=== PATIENT | female | born 1945 | race Caucasian/White ===

== ENCOUNTER 2024-11-27 20:04 | Emergency (ER) | payer MEDICARE, OTHER, SELFPAY ==
[2024-11-27 20:04] VITALS: BP 151/82; PULSE 74; RESP 15; TEMP 36.9; O2SAT 98; BMI 27.3
--- NOTE | 2024-11-27 20:15 | PC.NURSE ---
Unable to do the suicide assessment due to pt's altered mental status.
--- NOTE | 2024-11-27 20:30 | ED_ITS ---
Documented by User: KADIE Arcos 11/28/24 01:04 HPI - Skin/Abscess/Foreign Bdy 2 General: Chief complaint: Skin/Abscess/Foreign Body Stated complaint: BREAST INFECTION Time Seen by Provider: 11/27/24 20:20 History of Present Illness: 79-year-old female comes in today with a draining breast infection. Family seeing a draining wound from her left breast today. They had not noticed any fever or chills. Patient has had some declining cognition for the last 2 to 3 years. Family reports that patient takes no routine medications. Patient has not left the home since COVID in 2019. Patient lives with family members at home. Family stated that they have noticed increasing decline since the of her father 2 years ago. Patient has a history of breast cancer approximately 30 years ago. Patient had breast implants at that time. Otherwise patient's had an appendix removal. Related Data Allergies Allergy/AdvReac Type Severity Reaction Status Date / Time ibuprofen Allergy ADR-Vomitin Verified 11/27/24 20:14 g morphine Allergy ALGY-Difficulty Verified 11/27/24 20:14 Breathing Sulfa (Sulfonamide Allergy Unknown Verified 11/27/24 20:14 Antibiotics) tramadol Allergy Unconscious Verified 11/27/24 20:14 Review of Systems 2 General: Reports: 10 or more systems reviewed and unremarkable except in HPI and below Physical Exam 2 Const: COMMON NORMALS: alert HENMT: COMMON NORMALS: normocephalic HEAD & SCALP: normocephalic Neck/C-Spine: COMMON NORMALS: full ROM Chest: OTHER: ulcerated lesion approximately 4 cm circular to the medial left breast with surrounding erythema and drainage from the site. Resp: COMMON NORMALS: normal respiratory effort Cardio: COMMON NORMALS: regular rate RATE: regular rate Back/Pelvis: COMMON NORMALS: thoracic and lumbar spine normal to inspection Extremity: COMMON NORMALS: full ROM Neuro: SENSORIUM/ORIENTATION: Yes alert Skin: NARRATIVE SKIN EXAM: Erythema with centralized crusted lesion to the left inner breast. Area is hard. Course 2 Vital Signs: Vital signs: Vital Signs Temperature 98.4 F 11/27/24 20:04 Pulse Rate 70 11/27/24 22:04 Respiratory Rate 22 H 11/27/24 22:04 Blood Pressure 180/86 11/27/24 22:04 Pulse Oximetry 97 11/27/24 22:04 Oxygen Delivery Me thod Nasal Cannula 11/27/24 22:04 Oxygen Flow Rate 3 11/27/24 22:04 MDM - Skin/Abscess/Foreign Bdy Medicial Decision Making Patient presents with a draining lesion from the left inner breast. Patient is only oriented to self. Patient is ambulatory. Limited examination notes a area of redness with surrounding ecchymosis and centralized ulcerated lesion with drainage of serous fluid. Differential diagnosis includes carcinoma, abscess, rupture breast implant, recluse spider bite. 2034, discussed patient with Dr. Lopez, attending ER physician. Expressed my concerns of patient's confusion and aggression and need for further imaging. His recommendations were to start with some Ativan IM and then we may need to use. Ketamine for sedation for a CT scan. Relayed this to nursing staff who reports understanding. 2226, CT noted a left breast implant with intracapsular and extracapsular ruptures. No other significant abnormalities were noted on the chest or head CT. CBC noted a white count of 9000, sed rate was 48, sodium was 137, potassium 4.0, CRP was 64, urinalysis was unremarkable. Discussed with patient's family recommendations for referral to a plastic surgeon for removal of the breast implant and other surgical intervention. Family reported understanding agreed with plan. 2354, spoke with surgeon on-call, Dr. Bey, at [facility] in [place]. He recommended patient being treated with antibiotics and following up outpatient with Dr. Daly or Dr. Tirado for further investigation and treatment of the ruptured breast implant and/or ruling out carcinoma. 0010, family felt uncomfortable with patient going home as he did not know how they would care for her or if they would be able to get her into follow-up. I discussed this with the hospitalist, Dr. Cosby, he did not feel that we were a good fit for this patient since we had no surgeon on-call and recommended looking at other facilities for placement. 0025, talked with the call center at [facility] they would review the record and films and contact us back about excepting for admission. 0100, awaiting callback from [facility]. Dr. Lopez, attending ER physician, agreed to receive my patient at the end of my shift. Lab Data 11/27/24 21:16 11/27/24 21:16 Radiology Impressions Chest/Abdomen/Pelvis CT 11/27/24 20:35 IMPRESSION: 1. Left breast implant with intracapsular and extracapsular ruptures. 2. Atherosclerosis including coronary artery calcification. 3. Suspected chronic T10 and T11 compression fractures IMPRESSION: 1. No acute abnormality. 2. Extensive atherosclerosis. 3. Renal cysts. COMMENTS: Consistent with the [employer]'s Incidental Findings Committee white paper (J Am Werner Radiol 2018): Any incidental renal lesion less than 1 cm or classified as too small to characterize, or any incidental cystic renal lesion characterized as simple-appearing, is likely benign. No follow-up imaging is recommended for these lesions per consensus recommendations based on imaging criteria. Head CT 11/27/24 21:37 IMPRESSION: 1. No acute intracranial abnormality. 2. Moderate age-related changes. Laboratory Results WBC 9.28 10^3/uL (3.29-11.43) 11/27/24 21:16 RBC 4.08 10^6/uL (3.85-5.65) 11/27/24 21:16 Hgb 12.10 g/dL (11.27-16.99) 11/27/24 21:16 Hct 37.5 % (36-47) 11/27/24 21:16 MCV 91.9 fl (85-98) 11/27/24 21:16 MCH 29.7 pg (27-33) 11/27/24 21:16 MCHC 32.3 g/dL (30-55) 11/27/24 21:16 RDW 11.8 % (12.1-15.1) L 11/27/24 21:16 Plt Count 214 10^3/cmm (157-399) 11/27/24 21:16 MPV 11.9 fL (7.4-10.4) H 11/27/24 21:16 Neut % (Auto) 76.2 % 11/27/24 21:16 Lymph % (Auto) 14.8 % 11/27/24 21:16 Telfair % (Auto) 6.4 % 11/27/24 21:16 Eos % (Auto) 1.9 % 11/27/24 21:16 Baso % (Auto) 0.5 % 11/27/24 21:16 Neut # (Auto) 7.07 10^3/uL (1.8-7.7) 11/27/24 21:16 Lymph # (Auto) 1.4 10^3/uL (0.8-4.8) 11/27/24 21:16 [place]elf[place] # (Auto) 0.6 10^3/uL (0.2-0.9) 11/27/24 21:16 Eos # (Auto) 0.2 10^3/uL (0.0-0.8) 11/27/24 21:16 Baso # (Auto) 0.1 10^3/uL (0.0-0.1) 11/27/24 21:16 Nucleated RBC % (auto) 0 % 11/27/24 21:16 Nucleated RBCs # 0.0 /100WBC 11/27/24 21:16 ESR 48 mm/hr (0-15) H 11/27/24 21:16 Sodium 137 mmol/L (136-145) 11/27/24 21:16 Potassium 4.0 mmol/L (3.5-5.1) 11/27/24 21:16 Chloride 100 mmol/L (98-107) 11/27/24 21:16 Carbon Dioxide 25 mmol/L (22-29) 11/27/24 21:16 Anion Gap 16.0 (5-19) 11/27/24 21:16 BUN 15 mg/dL (8-23) 11/27/24 21:16 Creatinine 0.6 mg/dL (0.5-0.9) 11/27/24 21:16 GFR Calculation Not Reportable 11/27/24 21:16 Glucose 126 mg/dL (65-115) H 11/27/24 21:16 Calculated Osmolality 286 mOsm/kg (285-295) 11/27/24 21:16 Lactic Acid 1.5 mmol/L (0.5-2.2) 11/27/24 21:16 Calcium 9.0 mg/dL (8.5-10.5) 11/27/24 21:16 Total Bilirubin 0.3 mg/dL (0.15-1.2) 11/27/24 21:16 AST 32 U/L (0-32) 11/27/24 21:16 ALT 36 U/L (0-33) H 11/27/24 21:16 Alkaline Phosphatase 167 U/L (35-105) H 11/27/24 21:16 C-Reactive Protein 64.7 mg/L (0.0-4.9) H 11/27/24 21:16 Total Protein 6.6 g/dL (6.6-8.7) 11/27/24 21:16 Albumin 3.4 g/dL (3.5-5.2) L 11/27/24 21:16 Globulin 3.2 g/dL (1.3-4.6) 11/27/24 21:16 Urine Color Yellow (Yellow) 11/27/24 20:54 Urine Appearance Clear (CLEAR) 11/27/24 20:54 Urine pH 7.0 (5-7) 11/27/24 20:54 Ur Specific Yulee 1.004 (1.005-1.030) L 11/27/24 20:54 Urine Protein Negative (Negative) 11/27/24 20:54 Urine Glucose (UA) Negative (Normal) 11/27/24 20:54 Urine Ketones Negative (Negative) 11/27/24 20:54 Urine Blood 1+ (Negative) A 11/27/24 20:54 Urine Nitrate Negative (Negative) 11/27/24 20:54 Urine Bilirubin Negative (Negative) 11/27/24 20:54 Urine Urobilinogen 0.2 mg/dL (Negative) 11/27/24 20:54 Ur Leukocyte Esterase Negative (Negative) 11/27/24 20:54 Urine RBC 0-2 /hpf (0-2) 11/27/24 20:54 Urine WBC 0-5 /hpf (0-5) 11/27/24 20:54 Ur Squamous Epith Cells 0-5 /hpf (0-5) 11/27/24 20:54 Amorphous Sediment Not Reportable 11/27/24 20:54 Urine Bacteria None seen /hpf (NONE) 11/27/24 20:54 Hyaline Casts 0-4 /lpf H 11/27/24 20:54 Discharge Plan Discharge Patient Disposition: Xfer Short-Term Hosp Clinical Impression: Abscess of breast, left, Rupture of implant of left breast, Alzheimer dementia Condition: Stable Discharge Diet: Usual diet Discharge Activity: Increase activity as tolerated Patient Instructions: Wound Care (General) Print Language: Mongolian Coding Level of Care Code ED Loan Broker for Chg Fwd Documented by User: Mohinder Lopez MD 11/28/24 01:58 HPI - Skin/Abscess/Foreign Bdy 2 General: Chief complaint: Skin/Abscess/Foreign Body Stated complaint: BREAST INFECTION Time Seen by Provider: 11/27/24 20:20 Related Data Allergies Allergy/AdvReac Type Severity Reaction Status Date / Time ibuprofen Allergy ADR-Vomitin Verified 11/27/24 20:14 g morphine Allergy ALGY-Difficulty Verified 11/27/24 20:14 Breathing Sulfa (Sulfonamide Allergy Unknown Verified 11/27/24 20:14 Antibiotics) tramadol Allergy Unconscious Verified 11/27/24 20:14 Procedures Procedural Sedation Indication: other (ct scan) ASA Class: II Time of Last PO Intake: 14:00 Preparation: director cardiac applied and pulse oximeter Ketamine: IM Ketamine dose (mg): 254 Patient Tolerated Procedure: well Complications: none Course 2 Vital Signs: Vital signs: Vital Signs Temperature 98.4 F 11/27/24 20:04 Pulse Rate 70 11/27/24 22:04 Respiratory Rate 22 H 11/27/24 22:04 Blood Pressure 180/86 11/27/24 22:04 Pulse Oximetry 97 11/27/24 22:04 Oxygen Delivery Me thod Nasal Cannula 11/27/24 22:04 Oxygen Flow Rate 3 11/27/24 22:04 MDM - Skin/Abscess/Foreign Bdy Medicial Decision Making Patient presents with a draining lesion from the left inner breast. Patient is only oriented to self. Patient is ambulatory. Limited examination notes a area of redness with surrounding ecchymosis and centralized ulcerated lesion with drainage of serous fluid. Differential diagnosis includes carcinoma, abscess, rupture breast implant, recluse spider bite. 2034, discussed patient with Dr. Lopez, attending ER physician. Expressed my concerns of patient's confusion and aggression and need for further imaging. His recommendations were to start with some Ativan IM and then we may need to use. Ketamine for sedation for a CT scan. Relayed this to nursing staff who reports understanding. 2226, CT noted a left breast implant with intracapsular and extracapsular ruptures. No other significant abnormalities were noted on the chest or head CT. CBC noted a white count of 9000, sed rate was 48, sodium was 137, potassium 4.0, CRP was 64, urinalysis was unremarkable. Discussed with patient's family recommendations for referral to a plastic surgeon for removal of the breast implant and other surgical intervention. Family reported understanding agreed with plan. 2355, spoke with surgeon on-call, Dr. Bey, at [facility]. He recommended patient being treated with antibiotics and following up outpatient with Dr. Daly or Dr. Tirado for further investigation and treatment of the ruptured breast implant and/or ruling out carcinoma. 0010, family felt uncomfortable with patient going home as he did not know how they would care for her or if they would be able to get her into follow-up. I discussed this with the hospitalist, Dr. Cosby, he did not feel that we were a good fit for this patient since we had no surgeon on-call and recommended looking at other facilities for placement. 0025, talked with the call center at [facility] they would review the record and films and contact us back about excepting for admission. 0100, awaiting callback from [facility]. Dr. Lopez, attending ER physician, agreed to receive my patient at the end of my shift. Spoke to hospitalist at [facility] transfer for high-level care for surgery capabilities Lab Data 11/27/24 21:16 11/27/24 21:16 Radiology Impressions Chest/Abdomen/Pelvis CT 11/27/24 20:35 IMPRESSION: 1. Left breast implant with intracapsular and extracapsular ruptures. 2. Atherosclerosis including coronary artery calcification. 3. Suspected chronic T10 and T11 compression fractures IMPRESSION: 1. No acute abnormality. 2. Extensive atherosclerosis. 3. Renal cysts. COMMENTS: Consistent with the [employer]'s Incidental Findings Committee white paper (J Am Werner Radiol 2018): Any incidental renal lesion less than 1 cm or classified as too small to characterize, or any incidental cystic renal lesion characterized as simple-appearing, is likely benign. No follow-up imaging is recommended for these lesions per consensus recommendations based on imaging criteria. Head CT 11/27/24 21:37 IMPRESSION: 1. No acute intracranial abnormality. 2. Moderate age-related changes. Laboratory Results WBC 9.28 10^3/uL (3.29-11.43) 11/27/24 21:16 RBC 4.08 10^6/uL (3.85-5.65) 11/27/24 21:16 Hgb 12.10 g/dL (11.27-16.99) 11/27/24 21:16 Hct 37.5 % (36-47) 11/27/24 21:16 MCV 91.9 fl (85-98) 11/27/24 21:16 MCH 29.7 pg (27-33) 11/27/24 21:16 MCHC 32.3 g/dL (30-55) 11/27/24 21:16 RDW 11.8 % (12.1-15.1) L 11/27/24 21:16 Plt Count 214 10^3/cmm (157-399) 11/27/24 21:16 MPV 11.9 fL (7.4-10.4) H 11/27/24 21:16 Neut % (Auto) 76.2 % 11/27/24 21:16 Lymph % (Auto) 14.8 % 11/27/24 21:16 Telfair % (Auto) 6.4 % 11/27/24 21:16 Eos % (Auto) 1.9 % 11/27/24 21:16 Baso % (Auto) 0.5 % 11/27/24 21:16 Neut # (Auto) 7.07 10^3/uL (1.8-7.7) 11/27/24 21:16 Lymph # (Auto) 1.4 10^3/uL (0.8-4.8) 11/27/24 21:16 Telfair # (Auto) 0.6 10^3/uL (0.2-0.9) 11/27/24 21:16 Eos # (Auto) 0.2 10^3/uL (0.0-0.8) 11/27/24 21:16 Baso # (Auto) 0.1 10^3/uL (0.0-0.1) 11/27/24 21:16 Nucleated RBC % (auto) 0 % 11/27/24 21:16 Nucleated RBCs # 0.0 /100WBC 11/27/24 21:16 ESR 48 mm/hr (0-15) H 11/27/24 21:16 Sodium 137 mmol/L (136-145) 11/27/24 21:16 Potassium 4.0 mmol/L (3.5-5.1) 11/27/24 21:16 Chloride 100 mmol/L (98-107) 11/27/24 21:16 Carbon Dioxide 25 mmol/L (22-29) 11/27/24 21:16 Anion Gap 16.0 (5-19) 11/27/24 21:16 BUN 15 mg/dL (8-23) 11/27/24 21:16 Creatinine 0.6 mg/dL (0.5-0.9) 11/27/24 21:16 GFR Calculation Not Reportable 11/27/24 21:16 Glucose 126 mg/dL (65-115) H 11/27/24 21:16 Calculated Osmolality 286 mOsm/kg (285-295) 11/27/24 21:16 Lactic Acid 1.5 mmol/L (0.5-2.2) 11/27/24 21:16 Calcium 9.0 mg/dL (8.5-10.5) 11/27/24 21:16 Total Bilirubin 0.3 mg/dL (0.15-1.2) 11/27/24 21:16 AST 32 U/L (0-32) 11/27/24 21:16 ALT 36 U/L (0-33) H 11/27/24 21:16 Alkaline Phosphatase 167 U/L (35-105) H 11/27/24 21:16 C-Reactive Protein 64.7 mg/L (0.0-4.9) H 11/27/24 21:16 Total Protein 6.6 g/dL (6.6-8.7) 11/27/24 21:16 Albumin 3.4 g/dL (3.5-5.2) L 11/27/24 21:16 Globulin 3.2 g/dL (1.3-4.6) 11/27/24 21:16 Urine Color Yellow (Yellow) 11/27/24 20:54 Urine Appearance Clear (CLEAR) 11/27/24 20:54 Urine pH 7.0 (5-7) 11/27/24 20:54 Ur Specific Yulee 1.004 (1.005-1.030) L 11/27/24 20:54 Urine Protein Negative (Negative) 11/27/24 20:54 Urine Glucose (UA) Negative (Normal) 11/27/24 20:54 Urine Ketones Negative (Negative) 11/27/24 20:54 Urine Blood 1+ (Negative) A 11/27/24 20:54 Urine Nitrate Negative (Negative) 11/27/24 20:54 Urine Bilirubin Negative (Negative) 11/27/24 20:54 Urine Urobilinogen 0.2 mg/dL (Negative) 11/27/24 20:54 Ur Leukocyte Esterase Negative (Negative) 11/27/24 20:54 Urine RBC 0-2 /hpf (0-2) 11/27/24 20:54 Urine WBC 0-5 /hpf (0-5) 11/27/24 20:54 Ur Squamous Epith Cells 0-5 /hpf (0-5) 11/27/24 20:54 Amorphous Sediment Not Reportable 11/27/24 20:54 Urine Bacteria None seen /hpf (NONE) 11/27/24 20:54 Hyaline Casts 0-4 /lpf H 11/27/24 20:54 All radiology interpretation(s) finalized by discharge Discharge Plan Discharge Patient Disposition: Xfer Short-Term Hosp Clinical Impression: Abscess of breast, left, Rupture of implant of left breast, Alzheimer dementia Condition: Stable Discharge Diet: Usual diet Discharge Activity: Increase activity as tolerated Patient Instructions: Wound Care (General) Print Language: Mongolian Coding Level of Care Code ED Loan Broker for Fe Guzman
--- NOTE | 2024-11-27 20:35 | CTR_ITS ---
PROCEDURE INFORMATION: Exam: CT Chest With Contrast; Diagnostic Exam date and time: 11/27/2024 9:29 PM Age: 79 years old Clinical indication: Other: N/a; Mass, lump, or swelling in the chest; Prior surgery; Surgery date: 6+ months; Surgery type: Left mastectomy with implant. Open draining wound to inferior aspect of left breast. History of breast cancer. ; Additional info: Large breast wound TECHNIQUE: Imaging protocol: Diagnostic computed tomography of the chest with contrast. Radiation optimization: All CT scans at this facility use at least one of these dose optimization techniques: automated exposure control; mA and/or kV adjustment per patient size (includes targeted exams where dose is matched to clinical indication); or iterative reconstruction. Contrast material: OMNI 350; Contrast volume: 80 ml; Contrast route: INTRAVENOUS (IV); COMPARISON: No relevant prior studies available. RADIATION DOSE METRICS: Total DLP (mGy-cm): 1358.57 FINDINGS: Lungs: Bibasilar discoid atelectasis. The lungs are free of consolidation. Pleural spaces: Trace left pleural effusion. No pneumothorax. Heart: Unremarkable. No cardiomegaly. No pericardial effusion. Lymph nodes: Unremarkable. No enlarged lymph nodes. Vasculature: Calcific plaque involves the thoracic aorta and coronary arteries. The thoracic aorta is free of aneurysm and dissection. Bones/joints: Suspected chronic T10 and T11 compression fractures. Multilevel degenerative changes involve the spine Soft tissues: Left breast implant with intracapsular rupture noted. There is fluid surrounding the left breast implant concerning for an extra capsular rupture measuring up to 1.5 cm in thickness. PROCEDURE INFORMATION: Exam: CT Abdomen And Pelvis With Contrast Exam date and time: 11/27/2024 9:29 PM Age: 79 years old Clinical indication: Other: N/a; Mass, lump, or swelling in the chest; Prior surgery; Surgery date: 6+ months; Surgery type: Left mastectomy with implant. Open draining wound to inferior aspect of left breast. History of breast cancer. ; Additional info: Large breast wound TECHNIQUE: Imaging protocol: Computed tomography of the abdomen and pelvis with contrast. Radiation optimization: All CT scans at this facility use at least one of these dose optimization techniques: automated exposure control; mA and/or kV adjustment per patient size (includes targeted exams where dose is matched to clinical indication); or iterative reconstruction. Contrast material: OMNI 350; Contrast volume: 80 ml; Contrast route: INTRAVENOUS (IV); COMPARISON: No relevant prior studies available. RADIATION DOSE METRICS: Total DLP (mGy-cm): 1358.57 FINDINGS: Liver: Normal. No mass. Gallbladder and biliary ducts: Normal. No calcified stones. No ductal dilation. Pancreas: Normal. No ductal dilation. Spleen: Normal. No splenomegaly. Adrenal glands: The adrenal glands demonstrate increased nodularity. Kidneys and ureters: Renal cysts present. Otherwise, the kidneys are unremarkable. Stomach and bowel: Scattered colon diverticula. No inflammatory change identified involving the GI tract. No signs of bowel obstruction. Appendix: No evidence of appendicitis. Intraperitoneal space: Unremarkable. No free air. No significant fluid collection. Vasculature: Extensive calcific plaque involves the abdominal aorta and iliac arteries. Lymph nodes: Unremarkable. No enlarged lymph nodes. Urinary bladder: Unremarkable as visualized. Reproductive: Unremarkable as visualized. Bones/joints: Multilevel degenerative changes involve the spine no acute bony abnormality. Soft tissues: Unremarkable. CT/CT chest abdpel w/*[id number] IMPRESSION: 1. Left breast implant with intracapsular and extracapsular ruptures. 2. Atherosclerosis including coronary artery calcification. 3. Suspected chronic T10 and T11 compression fractures IMPRESSION: 1. No acute abnormality. 2. Extensive atherosclerosis. 3. Renal cysts. COMMENTS: Consistent with the [employer] [employer]'s Incidental Findings Committee white paper (J Am Werner Radiol 2018): Any incidental renal lesion less than 1 cm or classified as too small to characterize, or any incidental cystic renal lesion characterized as simple-appearing, is likely benign. No follow-up imaging is recommended for these lesions per consensus recommendations based on imaging criteria.
[2024-11-27] MEDS: LORazepam 2 mg/mL INJ 1 mL IM (20:38)
[2024-11-27 21:00] LABS: Bilirubin Urine Negative (Negative); Blood Urine 1+ (Negative); Glucose Urine UA Negative (Normal); Ketones Urine Negative (Negative); Leukocyte Esterase Urine Negative (Negative); Nitrate Urine Negative (Negative); Protein Urine Negative (Negative); Specific Gravity, Urine 1.004 (1.005-1.030); Urine Appearance Clear (CLEAR); Urine Color Yellow (Yellow); Urobilinogen Urine 0.2 mg/dL (Negative)
[2024-11-27 21:05] LABS: Add Urine Microscopic? YES; Bacteria Urine None Seen /hpf; Hyaline Casts Urine 0-4 /lpf; RBC Urine 0-2 /hpf (0-2); Squamous Epithelial Cell Urine 0-5 /hpf (0-5); WBC Urine 0-5 /hpf (0-5)
[2024-11-27] MEDS: ketamine 100 mg/mL Inj 5 mL 254 MG IM (21:14)
[2024-11-27 21:28] LABS: Basophils # 0.1 10^3/uL (0.0-0.1); Basophils % 0.5 %; Eosinophils # 0.2 10^3/uL (0.0-0.8); Eosinophils % 1.9 %; Hematocrit 37.5 % (36-47); Lymphocytes # 1.4 10^3/uL (0.8-4.8); Lymphocytes % 14.8 %; Mean Corpuscular HGB Conc 32.3 g/dL (30-55); Mean Corpuscular Hemoglobin 29.7 pg (27-33); Mean Corpuscular Volume 91.9 fl (85-98); Mean Platelet Volume 11.9 fL (7.4-10.4); Monocytes # 0.6 10^3/uL (0.2-0.9); Monocytes % 6.4 %; Neutrophils # 7.07 10^3/uL (1.8-7.7); Neutrophils % 76.2 %; Nucleated Red Blood Cells % 0 %; Platelet Count 214 10^3/cmm (157-399); Red Blood Count 4.08 10^6/uL (3.85-5.65); Red Cell Distribution Width 11.8 % (12.1-15.1); White Blood Count 9.28 10^3/uL (3.29-11.43)
[2024-11-27] MEDS: iohexol 350 mg/mL 500 mL Btl (per mL) IV (21:32)
--- NOTE | 2024-11-27 21:37 | CTR_ITS ---
PROCEDURE INFORMATION: Exam: CT Head Without Contrast Exam date and time: 11/27/2024 9:35 PM Age: 79 years old Clinical indication: Altered mental status/memory loss; Confusion or disorientation; Per family, worsening confusion with aggressive behavior. History of dementia. ; Additional info: AMS TECHNIQUE: Imaging protocol: Computed tomography of the head without contrast. Radiation optimization: All CT scans at this facility use at least one of these dose optimization techniques: automated exposure control; mA and/or kV adjustment per patient size (includes targeted exams where dose is matched to clinical indication); or iterative reconstruction. COMPARISON: No relevant prior studies available. RADIATION DOSE METRICS: Total DLP (mGy-cm): 814.28 FINDINGS: Brain: No focal obvious hemorrhage or midline shift is identified. The ventricles and parenchyma show moderate atrophy and chronic bicerebral white matter ischemic change. A few scattered old lacunes are likely. The presence of IV contrast administration may obscure subtle subarachnoid brain bleeds. Cerebral ventricles: No ventriculomegaly or evidence of hydrocephalus. Paranasal sinuses: The partially assessed sinuses are grossly clear. Mastoid air cells: Visualized mastoid air cells are well aerated. Bones: No displaced skull fracture is noted. Soft tissues: Unremarkable. Vasculature: Diffuse vascular calcifications are present. Other findings: Evidence of recent IV contrast administration. CT/CT head wo con* [id number] IMPRESSION: 1. No acute intracranial abnormality. 2. Moderate age-related changes.
[2024-11-27 21:39] LABS: Erythrocyte Sedimentation Rate 48 mm/hr (0-15)
[2024-11-27 21:48] LABS: Alanine Aminotransferase 36 U/L (0-33); Albumin Level 3.4 g/dL (3.5-5.2); Alkaline Phosphatase 167 U/L (35-105); Aspartate Amino Transferase 32 U/L (0-32); Blood Urea Nitrogen 15 mg/dL (8-23); C Reactive Protein 64.7 mg/L (0.0-4.9); Carbon Dioxide 25 mmol/L (22-29); Chloride 100 mmol/L (98-107); Creatinine Clr Calc Pharmacy 47.4402; Globulin 3.2 g/dL (1.3-4.6); Glucose 126 mg/dL (65-115); Lactic Sepsis W/Reflex 1.5 mmol/L (0.5-2.2); Osmolality Calculated 286 mOsm/kg (285-295); Sodium 137 mmol/L (136-145); Total Bilirubin 0.3 mg/dL (0.15-1.2); Total Protein 6.6 g/dL (6.6-8.7)
[2024-11-27 21:57] VITALS: BP 152/70; PULSE 77; RESP 20; O2SAT 100
[2024-11-27 22:04] VITALS: BP 180/86; PULSE 70; RESP 22; O2SAT 97
[2024-11-27] MEDS: ondansetron 2 mg/ML SDV 2 mL 4 MG IVP ×2 (22:06→22:44)
[2024-11-27] MEDS: cefTRIAXone 2,000 mg SDV 2000 MG IVP (22:44)
[2024-11-28] VITALS (24 sets, daily range): BP systolic 95–148; BP diastolic 66–90; PULSE 63–92; RESP 15–22; O2SAT 98–100
--- NOTE | 2024-11-28 08:38 | PC.PHAR ---
Will call [facility] for current med list when they open at 9am
--- NOTE | 2024-11-28 12:42 | PC.NURSE ---
report called to FREDERICK Junior at [facility].
== END 2024-11-28 15:10 | disposition short-term general hospital (02) ==
PROVIDERS: Nurse Practitioner Family; Emergency Provider Emergency Medicine
DX: N61.1 Abscess of the breast and nipple (principal); T85.43XA Leakage of breast prosthesis and implant, initial encounter; G30.9 Alzheimer's disease, unspecified; F02.80 Dementia in other diseases classified elsewhere, unspecified severity, without behavioral disturbance, psychotic disturbance, mood disturbance, and anxiety; X58.XXXA Exposure to other specified factors, initial encounter
CPT/HCPCS: 36415; 70450; 71260; 74177; 80053; 81001; 83605; 85025; 85651; 86140; 87040; 87070; 87075; 87205; 96372; 96374; 96375; 96376; 99152; 99285; J0696; J2060; J2405; J3490

== ENCOUNTER 2025-04-28 07:13 | Inpatient (IN) | payer MEDICARE, OTHER, SELFPAY ==
[2025-04-28] VITALS (14 sets, daily range): BP systolic 110–148; BP diastolic 64–89; PULSE 61–85; RESP 15–18; TEMP 36.4–36.8; O2SAT 90–99; BMI 18.5
--- NOTE | 2025-04-28 07:17 | XR_ITS ---
NOTE: Report was unsigned for reason: Order was edited. Original Signature date and time was: 04/28/25 @ 0804 WS: [id number] XR hip LEFT 2-3V wo/w pel* [id number] REASON FOR EXAM: trauma FINDINGS: Comminuted intertrochanteric fracture with separate lesser trochanteric fracture displaced medially. No other significant bone or joint abnormality. [facility] [place] XR/XR hip LT 2-3V wo/w pel* [id number] IMPRESSION: Left hip fracture as above.
--- NOTE | 2025-04-28 07:19 | ECG_ITS ---
[facility]25[facility]28 Pat Name: Fior Mead Department: Room: Gender: Female Assistant Facility Manager: : 1945 Requested By: Gabriel Zeng Order Number: [id number] Vanessa MD: Anna Gamez M.D. Measurements Intervals [address] Rate: 80 P: 53 TX: 133 QRS: 17 QRSD: 76 T: 43 QT: 378 QTc: 437 Interpretive Statements SINUS RHYTHM MINIMAL ST DEPRESSION [0.025+ mV ST DEPRESSION] No previous ECG available for comparison Electronically Signed On 04-28-2025 13:43:36 CDT by Anna Gamez M.D. [email or web address]
--- NOTE | 2025-04-28 07:30 | XR_ITS ---
WS: [id number] XR chest 1V portable [id number] REASON FOR EXAM: dyspnea/cough FINDINGS: Significant tortuosity and moderate ectasia of the thoracic aorta. Normal heart size. Calcified granulomatous disease bilaterally. Small area of atelectasis in the right lower lung. The lungs are otherwise unremarkable. No pleural abnormality. Mild degenerative spondylosis in the thoracic spine and mild osteoarthritis in the right shoulder for age. XR/XR chest 1V portable [id number] IMPRESSION: No acute chest abnormality as above.
[2025-04-28 07:38] LABS: Hematocrit 40.9 % (36-47); Hemoglobin 13.00 g/dL (11.27-16.99); Mean Corpuscular HGB Conc 31.8 g/dL (30-55); Mean Corpuscular Hemoglobin 29.7 pg (27-33); Mean Corpuscular Volume 93.6 fl (85-98); Nucleated Red Blood Cells % 0 %; Platelet Count 111 10^3/cmm (157-399); Red Blood Count 4.37 10^6/uL (3.85-5.65); White Blood Count 6.90 10^3/uL (3.29-11.43)
[2025-04-28] MEDS: ondansetron 2 mg/ML SDV 2 mL 4 MG IVP (07:41)
[2025-04-28] MEDS: morphine 4 mg/mL SDV 1 mL 2 MG IVP ×2 (07:41→10:26)
--- NOTE | 2025-04-28 07:41 | ED_ITS ---
HPI - Extremity Problem 2 General: Chief complaint: Extremity Injury, Lower Stated complaint: Fall, RT Hip Pain Time Seen by Provider: 04/28/25 07:16 History of Present Illness: 79-year-old female presents to the [facility] ency room complaining of left hip pain. Patient has dementia lives at home with the support of her family she was found down on the floor this morning in the living room. Patient lives in her home family stays with her. They last seen her last night around 10:00 she was dressed as she was found this morning. Her last meal was around 6 7:00 last night. Patient is not on any oral anticoagulants. Related Data Home Medications ?Medication ?Instructions ?Recorded ?Confirmed No Known Home Medications 11/28/2411/10 Allergies Allergy/AdvReac Type Severity Reaction Status Date / Time ibuprofen Allergy ADR-Vomitin Verified 11/27/24 20:14 g morphine Allergy ALGY-Difficulty Verified 11/27/24 20:14 Breathing Sulfa (Sulfonamide Allergy Unknown Verified 11/27/24 20:14 Antibiotics) tramadol Allergy Unconscious Verified 11/27/24 20:14 Review of Systems 2 General: Reports: ROS unobtainable due to mental status PFSH ED 2 PFSH: Medical History Rupture of implant of left breast History of breast cancer Dementia Surgical History History of appendectomy H/O mastectomy Social History Smoking and tobacco/nicotine status: former use of tobacco/nicotine Physical Exam 2 HENMT: COMMON NORMALS: normocephalic, atraumatic and hearing grossly normal bilaterally HEAD & SCALP: normocephalic and atraumatic Resp: COMMON NORMALS: normal respiratory effort, No retractions, No use of accessory muscles and clear to auscultation bilaterally AUSCULTATION: clear to auscultation bilaterally Cardio: COMMON NORMALS: regular rate, regular rhythm and No murmurs present (Cardio) RATE: regular rate RHYTHM: regular rhythm GI: COMMON NORMALS: Soft to palpation and No hepatosplenomegaly present A USCULTATION: Yes normoactive bowel sounds PALPATION: Yes Soft to palpation, No Tenderness to palpation present (GI), No Guarding due to palpation present (GI) and Yes No hepatosplenomegaly present Extremity: COMMON NORMALS: normal to inspection, capillary refill normal, no clubbing, cyanosis or edema, no calf tenderness and no pedal edema Skin: COMMON NORMALS: no rashes or lesions noted GENERAL SKIN EXAM: no rashes or lesions noted Course 2 Vital Signs: Vital signs: Vital Signs Temperature 97.9 F 04/28/25 07:23 Pulse Rate 81 04/28/25 07:23 Respiratory Rate 16 04/28/25 07:23 Blood Pressure 120/88 04/28/25 07:23 Pulse Oximetry 94 04/28/25 07:23 Oxygen Delivery Me thod Room Air 04/28/25 07:23 MDM - Extremity (Nontraumatic) Medical Decision Making Patient has left intertrochanteric hip fracture mildly displaced. She last ate around 6 or 7:00 last night. Discussed with hospitalist and with Dr. Graff will admit to hospitalist service consult orthopedics Medical Records I reviewed the patient's medical records. Lab Data I reviewed the patient's lab results. 04/28/25 07:27 04/28/25 07:27 Radiology Impressions Hip/Pelvis X-Ray 04/28/25 07:17 IMPRESSION: Left hip fracture as above. Chest X-Ray 04/28/25 07:30 IMPRESSION: No acute chest abnormality as above. Laboratory Results WBC 6.90 10^3/uL (3.29-11.43) 04/28/25 07:27 RBC 4.37 10^6/uL (3.85-5.65) 04/28/25 07:27 Hgb 13.00 g/dL (11.27-16.99) 04/28/25 07:27 Hct 40.9 % (36-47) 04/28/25 07:27 MCV 93.6 fl (85-98) 04/28/25 07:27 MCH 29.7 pg (27-33) 04/28/25 07:27 MCHC 31.8 g/dL (30-55) 04/28/25 07:27 RDW 12.8 % (12.1-15.1) 04/28/25 07:27 Plt Count 111 10^3/cmm (157-399) L 04/28/25 07:27 MPV 12.8 fL (7.4-10.4) H 04/28/25 07:27 Neut % (Auto) 84.2 % 04/28/25 07:27 Lymph % (Auto) 10.0 % 04/28/25 07:27 [place] % (Auto) 4.8 % 04/28/25 07:27 Eos % (Auto) 0.4 % 04/28/25 07:27 Baso % (Auto) 0.3 % 04/28/25 07:27 Neut # (Auto) 5.81 10^3/uL (1.8-7.7) 04/28/25 07:27 Lymph # (Auto) 0.7 10^3/uL (0.8-4.8) L 04/28/25 07:27 [place] # (Auto) 0.3 10^3/uL (0.2-0.9) 04/28/25 07:27 Eos # (Auto) 0.0 10^3/uL (0.0-0.8) 04/28/25 07:27 Baso # (Auto) 0.0 10^3/uL (0.0-0.1) 04/28/25 07:27 Nucleated RBC % (auto) 0 % 04/28/25 07:27 Nucleated RBCs # 0.0 /100WBC 04/28/25 07:27 Sodium 140 mmol/L (136-145) 04/28/25 07:27 Potassium 4.5 mmol/L (3.5-5.1) 04/28/25 07:27 Chloride 104 mmol/L (98-107) 04/28/25 07:27 Carbon Dioxide 26 mmol/L (22-29) 04/28/25 07:27 Anion Gap 14.5 (5-19) 04/28/25 07:27 BUN 40 mg/dL (8-23) H 04/28/25 07:27 Creatinine 0.7 mg/dL (0.5-0.9) 04/28/25 07:27 GFR Calculation Not Reportable 04/28/25 07:27 Glucose 120 mg/dL (65-115) H 04/28/25 07:27 Calculated Osmolality 301 mOsm/kg (285-295) H 04/28/25 07:27 Calcium 9.0 mg/dL (8.5-10.5) 04/28/25 07:27 Total Bilirubin 0.3 mg/dL (0.15-1.2) 04/28/25 07:27 AST 30 U/L (0-32) 04/28/25 07:27 ALT 19 U/L (0-33) 04/28/25 07:27 Alkaline Phosphatase 112 U/L (35-105) H 04/28/25 07:27 Creatine Kinase 86 U/L (26-192) 04/28/25 07:27 Total Protein 6.6 g/dL (6.6-8.7) 04/28/25 07:27 Albumin 3.7 g/dL (3.5-5.2) 04/28/25 07:27 Globulin 2.9 g/dL (1.3-4.6) 04/28/25 07:27 All radiology interpretation(s) finalized by discharge EKG Data EKG 1: Interpretation: Like EKG 04/28/2025 719 normal sinus rhythm rate of 80 [place] interval [address] variation no acute ST changes. No EKGs available for comparison. Discharge Plan Discharge Patient Disposition: Admitted As Inpatient Clinical Impression: Closed intertrochanteric fracture of right hip, Dementia Condition: Stable Coding Level of Care Code ED Artisan Plasterer for Fe Guzman
[2025-04-28 07:47] LABS: Alanine Aminotransferase 19 U/L (0-33); Albumin Level 3.7 g/dL (3.5-5.2); Alkaline Phosphatase 112 U/L (35-105); Anion Gap 14.5 (5-19); Aspartate Amino Transferase 30 U/L (0-32); Blood Urea Nitrogen 40 mg/dL (8-23); Calcium 9.0 mg/dL (8.5-10.5); Carbon Dioxide 26 mmol/L (22-29); Chloride 104 mmol/L (98-107); Creatinine Clr Calc Pharmacy 42.0504; Globulin 2.9 g/dL (1.3-4.6); Glucose 120 mg/dL (65-115); Osmolality Calculated 301 mOsm/kg (285-295); Potassium 4.5 mmol/L (3.5-5.1); Sodium 140 mmol/L (136-145); Total Protein 6.6 g/dL (6.6-8.7)
--- NOTE | 2025-04-28 07:49 | CT_ITS ---
WS: [id number] CT HEAD NONCONTRAST HISTORY: fall TECHNIQUE: Contiguous axial imaging performed through the brain. Bone and soft tissue windows. Sagittal and coronal reformats reviewed. All CT scans at [facility] use at least one of these dose optimization techniques: automated exposure control; mA and/or kV adjustment per patient size (includes targeted exams where dose is matched to clinical indication); or iterative reconstruction. DLP: 1019.48 mGy.cm COMPARISON: 11/27/2024 No acute intracranial hemorrhage, midline shift or mass effect. Moderate symmetric atrophy and small vessel disease. Small lacunar infarcts in the basal ganglia. No new infarct. Ventricles: Ventricles and extra-axial spaces are prominent on the basis of central and peripheral atrophy. No inferior displacement the cerebellar tonsils. Paranasal sinuses: As visualized are clear. Mastoid air cells: Well pneumatized. Cerumen in the external auditory canals. Calvarium and scalp: No skull fracture. Small scalp contusion over the high RIGHT parietal bone. New since 11/27/2024. CT/CT head wo con* [id number] IMPRESSION: 1. No acute intracranial hemorrhage or edema. 2. Moderate symmetric atrophy and small vessel disease. Stable bilateral lacun ar infarcts in the basal ganglia. 3. Very small scalp contusion over the high RIGHT parietal bone.
[2025-04-28 08:42] LABS: Glucose Urine UA Negative (Normal); Nitrate Urine Negative (Negative); Specific Gravity, Urine 1.020 (1.005-1.030)
[2025-04-28 08:48] LABS: Add Urine Microscopic? YES
--- NOTE | 2025-04-28 09:03 | P.HP_ITS ---
Providers/Chief Complaint 2 Admitting Physician: Wesley Dean Chief Complaint: Fall, RT Hip Pain History of Present Illness Fior Mead is a 79 year old with history of dementia who lives at home with family support. Early this morning she cried out; family found her sitting on the floor. Prior to this event, mobility was described as very good?walking around the house, yard, and deck. Dementia is reported to be in late stages, with limited ability to cooperate or follow directions. She was hospitalized in December for an infection and underwent plastic surgery to clean out an old breast implant; family reports decline since that surgery. She was referred to hospice but not approved; hospice-affiliated team has visited on occasion. Family reports no current home medications. Unclear history of diabetes; family uncertain. A code status discussion occurred; family agreed not to pursue cardiopulmonary resuscitation (CPR) if her heart stops or she stops breathing. Orthopedic evaluation and surgical options (from minimally invasive fixation to possible replacement procedures) were discussed with the family, with a focus on comfort and early mobilization if surgery proceeds. Admission and timing for possible surgery were discussed as pending orthopedics assessment, possibly tomorrow. Review of Systems 2 General: Reports: ROS unobtainable due to medical condition Medications/Allergies Home Medications ?Medication ?Instructions ?Recorded ?Confirmed ?Last Taken ?Type No Known Home Medications 11/28/2411/10 Unknown History Allergies Allergy/AdvReac Type Severity Reaction Status Date / Time ibuprofen Allergy ADR-Vomitin Verified 11/27/24 20:14 g morphine Allergy ALGY-Difficulty Verified 11/27/24 20:14 Breathing Sulfa (Sulfonamide Allergy Unknown Verified 11/27/24 20:14 Antibiotics) tramadol Allergy Unconscious Verified 11/27/24 20:14 PFSH Acute 2 PFSH: Medical History Rupture of implant of left breast History of breast cancer Dementia Surgical History History of appendectomy H/O mastectomy Social History Smoking and tobacco/nicotine status: former use of tobacco/nicotine Alcohol intake: never Substance/Drug Use: never Lives independently: No Household members: family Vitals/I&O/Wt Last Vital Signs Temp 97.9 F 04/28/25 07:23 Pulse 81 04/28/25 07:23 Resp 16 04/28/25 07:23 BP 120/88 04/28/25 07:23 Pulse Ox 94 04/28/25 07:23 O2 Del Method Room Air 04/28/25 07:23 04/27/25 04/28/25 04/28/25 22:59 06:59 14:59 Output Total 100 / 100 Balance -100 / -100 Weight last 48 hrs Weight 48.534 kg Physical Exam 2 Const: ORIENTATION/CONSCIOUSNESS: Yes awake HENMT: COMMON NORMALS: oropharynx normal Neck/C-Spine: COMMON NORMALS: no JVD Resp: COMMON NORMALS: normal respiratory effort and clear to auscultation bilaterally AUSCULTATION: clear to auscultation bilaterally Cardio: COMMON NORMALS: no JVD, regular rhythm, S1 normal heart sound present, S2 normal heart sound present and No murmurs present (Cardio) RHYTHM: regular rhythm HEART SOUNDS: S1 normal heart sound present and S2 normal heart sound present GI: COMMON NORMALS: Normal to inspection, nondistended, normoactive bowel sounds present, Soft to palpation and non-tender PALPATION: Yes Soft to palpation Extremity: COMMON NORMALS: no joint enlargement and no pedal edema N ARRATIVE EXTREMITY EXAM: Foreshortened and everted LLE Neuro: COMMON NORMALS: moves all extremities; negative for patient oriented x3 Skin: COMMON NORMALS: no rashes or lesions noted GENERAL SKIN EXAM: no rashes or lesions noted Urinary Catheter Management: Bose: Cath Placed During This Visit: yes Urinary Catheter Date of Insertion: 04/28/25 Urinary Catheter Time of Insertion: 08:31 Data 04/28/25 07:27 04/28/25 07:27 A&P Assessment and plan 1. Closed intertrochanteric fracture of right hip: History obtained from her family due to dementia. She lives with her family. It is unclear how she ended up falling down this morning. Imaging identified a left intertrochanteric hip fracture. Orthopedic surgery consultation planned; options discussed with family include minimally invasive fixation versus possible replacement procedures, with aim to stabilize for comfort and early mobilization. Admission anticipated with likely surgery not today, possibly tomorrow, pending orthopedic recommendations. Discussed risk with surgical procedure and anesthesia with advanced age, underlying dementia, hyperglycemia, possible diabetes, possible other unknown conditions as she has not seen a doctor in a while. Overall goals of care have been limited and focused on comfort with advanced dementia. Reviewed vitals, CBC, CMP, CK, UA, chest x-ray, hip x-ray, head CT, EKG, ED provider note, discussed with ED provider. Discussed with nursing, case management. May end up requiring one-to-one sitter depending on how active she becomes. Currently has been resting calmly. Fall precautions. - Orthopedic surgery to see patient - Admit when room available; surgery anticipated after admission, likely tomorrow (timing per ortho) - Obtain records from recent December surgery (per family report) - SCD for DVT prophylaxis for time being - Gentle IV hydration, monitor for risk of fluid overload 2. Dementia: Late-stage dementia with limited ability to cooperate or follow directions; heightened risk for delirium surrounding pain control and anesthesia discussed. - Monitor for risk of delirium with underlying dementia Plan: Pain, acute : Pain management initiated for hip fracture-related pain. - Acetaminophen for pain - Hydrocodone as needed for moderate pain - Intravenous Dilaudid as needed for severe breakthrough pain Possible hyperglycemia : Blood glucose noted as 120 mg/dL today; history of diabetes uncertain per family. Prior hospitalization in December reportedly did not identify an issue with sugar. - A1c Stable bladder lacunar infarcts in the basal ganglia incidentally noted on CT. Small scalp contusion over the right parietal bone. Follow-up : Care coordination and discussions documented. - Discussed code status; family agreed not to pursue CPR if cardiac or respiratory arrest occurs - UA ordered and pending - Creatine kinase (CK) normal - Electrocardiogram (EKG) shows sinus rhythm with T-wave flattening in aVL and V2 on current interpretation; final read pending PDMP PDMP Reviewed: Not Reviewed Attestations 2 Medical Necessity Statement*: Admission of over 2 midnights anticipated for assessment management of left hip fracture in a lady of advanced age with late stage dementia. and High MDM includes amount and/or complexity of data reviewed/ordered [ previous or external records, resulted lab(s)/test(s), ordered lab(s)/test(s), independent test interpretation and other healthcare professional discussion] and described risk of complication, morbidity or mortality of management as documented Diagnoses Closed intertrochanteric fracture of right hip S72.141A Dementia F03.90
[2025-04-28 09:32] LABS: UA Slide Review UA Slide Review Perf
--- NOTE | 2025-04-28 10:21 | P.CONIM_ITS ---
Providers/Reason For Consult 2 Consulting Physician/Specialty*: Nico Quiroga MD/orthopedic surgery Reason for Consult*: Left intertrochanteric hip fracture Attending Physician: Wesley Dean History of Present Illness History of Present Illness Fior Mead is a 79 year old female Review of Systems 2 General: Reports: ROS unobtainable due to medical condition and ROS unobtainable due to mental status Medications/Allergies Home Medications ?Medication ?Instructions ?Recorded ?Confirmed ?Last Taken ?Type No Known Home Medications 11/28/2411/10 Unknown History Allergies Allergy/AdvReac Type Severity Reaction Status Date / Time ibuprofen Allergy ADR-Vomitin Verified 11/27/24 20:14 g morphine Allergy ALGY-Difficulty Verified 11/27/24 20:14 Breathing Sulfa (Sulfonamide Allergy Unknown Verified 11/27/24 20:14 Antibiotics) tramadol Allergy Unconscious Verified 11/27/24 20:14 PFSH Acute 2 PFSH: Medical History (Updated 04/28/25 @ 10:24 by Nico Graff MD) Rupture of implant of left breast History of breast cancer Dementia Surgical History History of appendectomy H/O mastectomy Social History Smoking and tobacco/nicotine status: former use of tobacco/nicotine Alcohol intake: never Substance/Drug Use: never Lives independently: No Household members: family Vitals/I&O/Wt Last Vital Signs Temp 97.9 F 04/28/25 07:23 Pulse 61 04/28/25 10:17 Resp 18 04/28/25 10:17 BP 133/79 04/28/25 10:17 Pulse Ox 99 04/28/25 10:17 O2 Del Method Room Air 04/28/25 10:17 04/27/25 04/28/25 04/28/25 22:59 06:59 14:59 Output Total 100 / 100 Balance -100 / -100 Weight last 48 hrs Weight 107 lb Physical Exam 2 Narrative: On orthopedic exam patient is resting comfortably in the ER bay. Family members are present. 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 She recently had surgery and they were able to do this after they signed the consent form. Patient does have dementia and is unable to add to the history. Patient lives at home with family members and they state that she is an ambulator. She is laying in bed with the left leg shortened and externally rotated at this time. Responds with pain at a time of motion of the left leg. Urinary Catheter Management: Bose: Cath Placed During This Visit: yes Urinary Catheter Date of Insertion: 04/28/25 Urinary Catheter Time of Insertion: 08:31 Data 04/28/25 07:27 04/28/25 07:27 A&P Assessment and plan 1. Closed displaced intertrochanteric fracture of left femur, initial encounter: Patient has left intertrochanteric hip fracture. Family states that she is an ambulator and therefore we should attempt to repair this hip so she can return back to ambulatory status. X-rays demonstrate intertrochanteric hip fracture displaced and angulated Plan: Plan at this time is for proximal trochanteric nail fixation of left hip fracture. All risk benefits treatment alternatives been discussed with family members and they are agreeable to this at this time. Patient is unable to participate in this decision making. PDMP PDMP Reviewed: Not Reviewed Consult Attestations 2 Medical Necessity Statement: Patient in need of surgical repair of left hip fracture Coding Level of Care Code Acute Code for Chg Fwd Diagnoses Closed displaced intertrochanteric fracture of left femur, initial encounter S72.142A Encounter type: initial encounter Fracture alignment: displaced
[2025-04-28 12:34] LABS: Estmated Average Glucose 137; Hemoglobin A1C 6.4 % (4.0-6.0)
--- NOTE | 2025-04-28 14:46 | ANES.PREANE2 ---
Pre-Anesthetic Assessment Height/Weight: Height 1.52 m Weight 43.091 kg Temp Pulse Resp BP Pulse Ox O2 Del Method 98.0 F 69 17 135/70 93 Room Air 04/28/25 14:40 04/28/25 14:40 04/28/25 14:40 04/28/25 14:40 04/28/25 14:40 04/28/25 14:40 Operation Date: 04/28/25 15:25 Proposed Procedures p Trochanteric Femoral Nail(Left) - Nico Graff MD Familial anesthetic complications: None Was Beta Amado taken within 24 hours: N/A Was Clonidine taken within 24 hours: N/A Last intake: Intake Last Liquid Date 04/27/25 Last Liquid Time 00:00 Last Solid Date 04/27/25 Last Solid Time 00:00 Social No alcohol and No tobacco Exam alert, oriented x 3, clear to auscultation bilaterally and regular rate & rhythm Airway Mallampati: Class II Dentition: full Neuropsych Dementia Anesthetic Plan ASA status: 2 Anesthesia: General Risk of > 500 ml blood loss (7ml/kg in children): No Medications/Allergies Home Medications ?Medication ?Instructions ?Recorded ?Confirmed ?Last Taken ?Type No Known Home Medications 11/28/24 04/28/25 Unknown History Allergies Allergy/AdvReac Type Severity Reaction Status Date / Time ibuprofen Allergy ADR-Vomitin Verified 11/27/24 20:14 g morphine Allergy ALGY-Difficulty Verified 11/27/24 20:14 Breathing Sulfa (Sulfonamide Allergy Unknown Verified 11/27/24 20:14 Antibiotics) tramadol Allergy Unconscious Verified 11/27/24 20:14 Current Medications Generic Name Dose Route Start Last Admin Trade Name Freq PRN Reason Stop Dose Admin Sodium Chloride 1,000 mls @ 50 mls/hr 04/28/25 08:51 04/28/25 10:22 Sodium Chloride 0.9% IV 50 mls/hr On Hold: 04/28/25 14:36 .Q20H NESTOR Administration Comment: Order held by Process Transfer Morphine Sulfate 2 mg 04/28/25 08:51 04/28/25 10:26 Morphine 4 Mg/Ml Sdv 1 Ml IVP 2 mg On Hold: 04/28/25 14:36 Q4H PRN Administration Comment: Order held by Process [facility] Anesthesia Medical History (Updated 04/28/25 @ 10:24 by Nico Graff MD) Rupture of implant of left breast History of breast cancer Dementia Surgical History History of appendectomy H/O mastectomy Social History Smoking and tobacco/nicotine status: former use of tobacco/nicotine Alcohol intake: never Substance/Drug Use: never Lives independently: No Household members: family Data Anesthesia 04/28/25 07:27 04/28/25 07:27 Short CBC 04/28/25 Range/Units 07:27 WBC 6.90 (3.29-11.43) 10^3/uL Hgb 13.00 (11.27-16.99) g/dL Hct 40.9 (36-47) % MCV 93.6 (85-98) fl Plt Count 111 L (157-399) 10^3/cmm Neut % (Auto) 84.2 % Neut # (Auto) 5.81 (1.8-7.7) 10^3/uL BMP 04/28/25 07:27 Sodium 140 Potassium 4.5 Chloride 104 Carbon Dioxide 26 BUN 40 H Creatinine 0.7 Glucose 120 H Calcium 9.0 Cardiac Enzymes 04/28/25 Range/Units 07:27 Creatine Kinase 86 (26-192) U/L Liver Function 04/28/25 Range/Units 07:27 Total Bilirubin 0.3 (0.15-1.2) mg/dL AST 30 (0-32) U/L ALT 19 (0-33) U/L Alkaline Phosphatase 112 H (35-105) U/L Albumin 3.7 (3.5-5.2) g/dL Urine 04/28/25 Range/Units 08:27 Urine Color Yellow (Yellow) Urine Appearance Clear (CLEAR) Urine pH 7.5 (5-7) Ur Specific [place] 1.020 (1.005-1.030) Urine Protein Negative (Negative) Urine Glucose (UA) Negative (Normal) Urine Ketones Negative (Negative) Urine Nitrate Negative (Negative) Urine Bilirubin Negative (Negative) Ur Leukocyte Esterase Negative (Negative) Urine RBC 3-5 (0-2) /hpf Urine WBC 0-5 (0-5) /hpf
[2025-04-28] MEDS: ceFAZolin 2,000 mg SDV 2000 MG IVP (16:56)
--- NOTE | 2025-04-28 18:04 | XRR_ITS ---
PROCEDURE INFORMATION: Exam: XR Left Hip Exam date and time: 04/28/2025 6:42 PM Age: 79 years old Clinical indication: Screening exam; Post op device placement; Prior surgery; Surgery date: Post-operative (0-2 days); Surgery type: Trochanter nail following lt hip FX TECHNIQUE: Imaging protocol: Radiologic exam of the left hip. Views: 1 view hip with pelvis when performed. COMPARISON: CR XR hip LT 2-3V wo/w pel* [id number] 04/28/2025 7:23 AM FINDINGS: Tubes, catheters and devices: Interval placement of medullary kayden and intertrochanteric screw in the setting of left femoral neck fracture extending to the lesser trochanter which remains superiorly and medially displaced. Improved anatomic alignment relative to preoperative imaging of 04/28/2025 at 7:25 a.m.. Bones/joints: See Tubes, catheters and devices finding. Soft tissues: Expected postsurgical changes including surgical clips. XR/XR hip LT 1V wo/w pel [id number] IMPRESSION: Interval placement of medullary kayden and intertrochanteric screw in the setting of left femoral neck fracture extending to the lesser trochanter which remains superiorly and medially displaced. Improved anatomic alignment relative to preoperative imaging of 04/28/2025 at 7:25 a.m..
--- NOTE | 2025-04-28 18:36 | PM.OP ---
Operative Report Date of procedure: April 28, 2025 Surgeon: Nico Graff MD Procedure: Preoperative diagnosis: Intertrochanteric hip fracture of the left hip Postoperative diagnosis: Same Procedure: Closed reduction with internal fixation left hip fracture using proximal trochanteric nail Surgeon: Nico Graff MD Chain Carrier: KADIE Whitman's assistance was necessary for assistance during the procedure, wound closure and dressing placement. Anesthesia: General EBL: 100 cc Indications: Fior is a 79-year-old white female who has dementia but lives at home with 2 of her daughters who are her caretakers. They indicate that she is an ambulator however she had a fall at home injuring her left hip and has not been able to bear weight. She is brought to the [facility] ER this morning and x-rays demonstrated a comminuted displaced intertrochanteric hip fracture of the left. After medical clearance and orthopedic consultation is felt the patient most benefit from closed possible open reduction with internal fixation of her left hip fracture. All risk benefits treatment alternatives discussed with her daughters and they are agreeable to this at this time. Procedure: After obtaining her consent patient was taken on her hospital bed to the operating room and had general anesthetic administered. Once good anesthesia achieved patient was placed on the fracture table with appropriate traction boots placed on either foot. Post was placed between her legs and she has brought down to this. Under gentle traction manipulation left hip fracture was reduced under fluoroscopic evaluation. At this point patient's left hip and leg were prepped and draped usual fashion. After surgical timeout standard lateral incision was made just superior to the greater trochanter on the left hip. Sharp dissection taken down to the tip of the greater trochanter. Entry awl was placed on the superior tip of the greater trochanter and confirmed under fluoroscopic evaluation is driven into the greater trochanter without much difficulty indicating weak bone. Guidewire was then placed down through this all the way down the intramedullary canal to the distal femur. It was confirmed on fluoroscopic evaluation. Subsequently proximal reaming was done of the trochanter. Then a size 10 short gamma nail was then put down the guidewire with the external drill guide attached to it. This is driven on down guidewire was removed from the intramedullary canal. Under fluoroscopic evaluation lag screw drill hole was positioned. Stab wound was made on the lateral thigh for leg screw drill guide to be placed up against the cortex of the lateral cortex. Guidepin was then driven up in the femoral neck on AP view a slightly inferior and lateral view demonstrated central placement. This was measured to be approximately 105 mm depth. This was then reamed to 105 mm. A lag screw was placed up this guidepin and tightened down. Once in appropriate position on both AP and lateral views locking screw was placed through the top of the gamma nail. At this point another stab wound is made distally for the locking screw. Guide tube was then placed up against the lateral cortex through this distal incision. Drill hole was made and measured and appropriate bicortical screw was placed without any difficulties. Interoperative fluoroscopy was then done to document positioning of all components and reduction of the fracture. Wounds were then cleaned and dried irrigated was sterile saline. Deep structures reapproximated with [id number] 0 Vicryl sutures. Subcutaneous was reapproximated 0 Vicryl erupted sutures skin was closed with skin keysha. Wounds are clean and dry dressed with Xeroform gauze sterile gauze dressing ABDs Kerlix wrap and Barron wrap for compression. Patient was then awakened transferred to the recovery room in stable condition
[2025-04-28] MEDS: chlorhexidine gluconate 0.12% Btl 473 mL 30 ML MUCOUS MEM (20:35)
[2025-04-29] VITALS: BP 121/76; PULSE 81; RESP 16; TEMP 36.6; O2SAT 96
[2025-04-29] MEDS: ceFAZolin 2,000 mg SDV 2000 MG IVP ×3 (01:23→17:08)
[2025-04-29 04:00] VITALS: BP 128/77; PULSE 80; RESP 16; TEMP 36.4; O2SAT 94
[2025-04-29] MEDS: HYDROmorphone 0.5 MG/0.5 ML INJ 0.2 MG IVP (04:33)
[2025-04-29 05:12] LABS: Hematocrit 27.9 % (36-47); Hemoglobin 9.00 g/dL (11.27-16.99); Mean Corpuscular HGB Conc 32.3 g/dL (30-55); Mean Corpuscular Hemoglobin 29.4 pg (27-33); Mean Corpuscular Volume 91.2 fl (85-98); Nucleated Red Blood Cells % 0 %; Platelet Count 124 10^3/cmm (157-399); Red Blood Count 3.06 10^6/uL (3.85-5.65); White Blood Count 6.01 10^3/uL (3.29-11.43)
[2025-04-29 05:31] LABS: Alanine Aminotransferase 16 U/L (0-33); Albumin Level 3.3 g/dL (3.5-5.2); Alkaline Phosphatase 94 U/L (35-105); Anion Gap 14.7 (5-19); Aspartate Amino Transferase 25 U/L (0-32); Blood Urea Nitrogen 31 mg/dL (8-23); Calcium 8.0 mg/dL (8.5-10.5); Carbon Dioxide 24 mmol/L (22-29); Chloride 109 mmol/L (98-107); Creatinine Clr Calc Pharmacy 40.0905; Globulin 2.2 g/dL (1.3-4.6); Glucose 146 mg/dL (65-115); Osmolality Calculated 305 mOsm/kg (285-295); Potassium 4.7 mmol/L (3.5-5.1); Sodium 143 mmol/L (136-145); Total Protein 5.5 g/dL (6.6-8.7)
[2025-04-29 06:00] VITALS: BMI 18.6
[2025-04-29 07:15] VITALS: BP 132/83; PULSE 77; RESP 17; TEMP 36.9; O2SAT 92
[2025-04-29 09:10] LABS: Hemoglobin 8.80 g/dL (11.27-16.99)
[2025-04-29] MEDS: mupirocin oint 22 gm 1 APPLIC NASAL ×2 (10:48→17:08)
[2025-04-29] MEDS: ondansetron 2 mg/ML SDV 2 mL 4 MG IVP ×2 (11:09→17:30)
--- NOTE | 2025-04-29 11:28 | PC.NURSE ---
Pt family refused morning PO meds as pt is not awake enough to safely take them.
--- NOTE | 2025-04-29 11:41 | P.PN_ITS ---
Subjective 2 Subjective: Sleeping, wakes up briefly, holds in her daughter's hands. Falls back asleep. Not following directions. Vitals/I&O/Wt Last Vital Signs Temp 98.4 F 04/29/25 07:15 Pulse 77 04/29/25 07:15 Resp 17 04/29/25 07:15 BP 132/83 04/29/25 07:15 Pulse Ox 92 04/29/25 07:15 O2 Del Method Room Air 04/29/25 07:15 O2 Flow Rate 10 04/28/25 18:35 04/28/25 04/29/25 04/29/25 22:59 06:59 14:59 Intake Total 0 / 0 1805 / 1805 631.666 / 631.666 Output Total 1000 / 1100 200 / 1300 Balance -1000 / -1100 1605 / 505 631.666 / 631.666 Weight last 48 hrs Weight 43.318 kg Weight 43.091 kg Weight 48.308 kg Weight 48.534 kg Physical Exam 2 Const: COMMON NORMALS: negative for patient oriented x3 HENMT: COMMON NORMALS: oropharynx normal Neck/C-Spine: COMMON NORMALS: no JVD Resp: COMMON NORMALS: normal respiratory effort and clear to auscultation bilaterally AUSCULTATION: clear to auscultation bilaterally Cardio: COMMON NORMALS: no JVD, regular rhythm, S1 normal heart sound present, S2 normal heart sound present and No murmurs present (Cardio) RHYTHM: regular rhythm HEART SOUNDS: S1 normal heart sound present and S2 normal heart sound present GI: COMMON NORMALS: Normal to inspection, nondistended, normoactive bowel sounds present, Soft to palpation and non-tender PALPATION: Yes Soft to palpation Extremity: COMMON NORMALS: no joint enlargement and no pedal edema Neuro: COMMON NORMALS: moves all extremities; negative for patient oriented x3 Skin: COMMON NORMALS: no rashes or lesions noted GENERAL SKIN EXAM: no rashes or lesions noted Urinary Catheter Management: Bose: Cath Placed During This Visit: yes Reason for Continuing Indwelling Catheter: Perioperative Use in Selected Surgeries Urinary Catheter Date of Insertion: 04/28/25 Urinary Catheter Time of Insertion: 08:31 Data 04/29/25 08:51 04/29/25 04:51 A&P Assessment and plan 1. Closed intertrochanteric fracture of right hip: Status post intertrochanteric nail repair of left hip fracture in an uneventful procedure. Noted acute blood loss anemia after fracture and surgery discussed with her daughter, hemoglobin down to 9. Repeat hemoglobin is requested. Will also reassess blood counts in the morning. SCD for DVT prophylaxis. Check Hemoccult. Pending assessment by PT, OT, pending disposition planning discharge arrangements. In case she was able to undergo rehabilitation family may consider with case management whether SNF may be an option versus home health. They would rather avoid long-term placement at this time. They are also concerned in case of returning home on what not to do so as not to harm the newly repaired hip. Discussed with case management, PT, and nursing. History obtained from her family due to dementia. She lives with her family. It is unclear how she ended up falling down. Imaging identified a left intertrochanteric hip fracture. Fall precautions. Reassess mental status with some encephalopathy/prolonged recovery after anesthesia. Hold further IV fluids for now. In case not resuming oral intake may have to resume IV fluid again. Monitor for risk of fluid overload. Pain management with acetaminophen, hydrocodone as needed, Dilaudid injection as needed for severe breakthrough pain. 2. Dementia: Late-stage dementia with limited ability to cooperate or follow directions; heightened risk for delirium surrounding pain control and anesthesia discussed. - Monitor for risk of delirium with underlying dementia Plan: Pain, acute : Pain management initiated for hip fracture-related pain. - Acetaminophen for pain - Hydrocodone as needed for moderate pain - Intravenous Dilaudid as needed for severe breakthrough pain Possible hyperglycemia : Blood glucose noted as 120 mg/dL today; history of diabetes uncertain per family. Prior hospitalization in December reportedly did not identify an issue with sugar. - A1c reviewed, noted prediabetes with A1c 6.4. Consistent carb diet when resumed. Will need follow-up. Stable bladder lacunar infarcts in the basal ganglia incidentally noted on CT. Small scalp contusion over the right parietal bone. Follow-up : Care coordination and discussions documented. - Discussed code status; family agreed not to pursue CPR if cardiac or respiratory arrest occurs - UA ordered and pending - Creatine kinase (CK) normal - Electrocardiogram (EKG) shows sinus rhythm with T-wave flattening in aVL and V2 on current interpretation; final read pending PDMP PDMP Reviewed: Not Reviewed Attestations 2 Medical Necessity Statement*: Continue admission for reassessment of acute blood loss anemia, postoperative care after and High MDM includes amount and/or complexity of data reviewed/ordered [ resulted lab(s)/test(s), ordered lab(s)/test(s) and other healthcare professional discussion] and described risk of complication, morbidity or mortality of management as documented Diagnoses Closed intertrochanteric fracture of right hip S72.141A Dementia F03.90
[2025-04-29 12:00] VITALS: BP 131/76; PULSE 83; RESP 17; TEMP 36.5; O2SAT 94
--- NOTE | 2025-04-29 14:02 | PC.PT ---
Eval attempted again at 14:00 and patient still not waking up or arousing. Will attempt later today or in the morning tomorrow.
[2025-04-29 15:54] VITALS: BP 141/79; PULSE 92; RESP 19; TEMP 36.3; O2SAT 96
--- NOTE | 2025-04-29 16:44 | P.PN_ITS ---
Subjective 2 Subjective: Fior is now 1 day status post close reduction internal fixation of left intertrochanteric hip fracture. Daughters indicate that she just recently woke up today. She has not had any physical therapy today. She has been in bed this entire time. Appears that pain management is going well. No other abnormalities to report at this time. Vitals/I&O/Wt Last Vital Signs Temp 97.4 F L 04/29/25 15:54 Pulse 92 04/29/25 15:54 Resp 19 H 04/29/25 15:54 BP 141/79 04/29/25 15:54 Pulse Ox 96 04/29/25 15:54 O2 Del Method Room Air 04/29/25 15:54 O2 Flow Rate 10 04/28/25 18:35 04/29/25 04/29/25 04/29/25 06:59 14:59 22:59 Intake Total 1805 / 1805 991.666 / 991.666 Output Total 200 / 1300 Balance 1605 / 505 991.666 / 991.666 Weight last 48 hrs Weight 95 lb 8 oz Weight 95 lb Weight 106 lb 8 oz Weight 107 lb Physical Exam 2 Narrative: Patient is awake in bed not responding to verbal commands. Family indicates that this is usually normal. She does not communicate that much at home but does talk as family says to people who are not there. Dressings are clear. Leg is normal position and neurovasc intact distally Urinary Catheter Management: Obse: Cath Placed During This Visit: yes Reason for Continuing Indwelling Catheter: Perioperative Use in Selected Surgeries Urinary Catheter Date of Insertion: 04/28/25 Urinary Catheter Time of Insertion: 08:31 Data 04/29/25 08:51 04/29/25 04:51 A&P Assessment and plan 1. Status post-operative repair of closed fracture of left hip: Patient is postop day 1 from trochanteric nail fixation of proximal hip fracture on the left. Patient has been very somnolent all day and has just recently awaken. She has not had any physical therapy. Plan: Plan at this time is to continue with advancement of her ambulatory status to start off at toe-touch weightbearing. We will continue to monitor her stay here. Blood counts appear to be stable. PDMP PDMP Reviewed: Not Reviewed Attestations 2 Medical Necessity Statement*: Patient needed further medical care possible detention placement for short- term stay as indicated. Coding Level of Care Code Acute Code for Chg Fwd Diagnoses Status post-operative repair of closed fracture of left hip Z98.890; Z87.81
[2025-04-29] MEDS: sennosides-docusate Tablet 2 TAB PO (17:06)
[2025-04-29] MEDS: chlorhexidine gluconate 0.12% Btl 473 mL 30 ML MUCOUS MEM ×2 (17:06→20:11)
[2025-04-29 20:00] VITALS: BP 117/56; PULSE 104; RESP 16; TEMP 36.3; O2SAT 90
[2025-04-30] VITALS: BP 104/58; PULSE 80; RESP 17; TEMP 36.4; O2SAT 90
[2025-04-30 04:00] VITALS: BP 107/64; PULSE 99; RESP 16; TEMP 36.7; O2SAT 90
[2025-04-30 04:47] LABS: Hematocrit 23.4 % (36-47); Hemoglobin 7.40 g/dL (11.27-16.99); Mean Corpuscular HGB Conc 31.6 g/dL (30-55); Mean Corpuscular Hemoglobin 29.2 pg (27-33); Mean Corpuscular Volume 92.5 fl (85-98); Nucleated Red Blood Cells % 0 %; Platelet Count 108 10^3/cmm (157-399); Red Blood Count 2.53 10^6/uL (3.85-5.65); White Blood Count 4.93 10^3/uL (3.29-11.43)
[2025-04-30 05:14] LABS: Alanine Aminotransferase 8 U/L (0-33); Albumin Level 3.1 g/dL (3.5-5.2); Alkaline Phosphatase 87 U/L (35-105); Anion Gap 13.5 (5-19); Aspartate Amino Transferase 24 U/L (0-32); Blood Urea Nitrogen 29 mg/dL (8-23); Calcium 8.0 mg/dL (8.5-10.5); Carbon Dioxide 25 mmol/L (22-29); Chloride 110 mmol/L (98-107); Creatinine Clr Calc Pharmacy 35.7086; Globulin 2.4 g/dL (1.3-4.6); Glucose 117 mg/dL (65-115); Osmolality Calculated 305 mOsm/kg (285-295); Potassium 4.5 mmol/L (3.5-5.1); Sodium 144 mmol/L (136-145); Total Protein 5.5 g/dL (6.6-8.7)
[2025-04-30 07:36] VITALS: BP 130/76; PULSE 91; RESP 18; TEMP 36.3; O2SAT 90
[2025-04-30] MEDS: sennosides-docusate Tablet 2 TAB PO (08:26)
[2025-04-30] MEDS: multivitamin therapeutic Tablet 1 TAB PO (08:27)
[2025-04-30] MEDS: ondansetron 2 mg/ML SDV 2 mL 4 MG IVP ×2 (09:02→16:58)
--- NOTE | 2025-04-30 09:06 | PC.SOCIAL ---
IMM Update pg 2 of IMM Updated and reviewed w/ patients daughters. Copy provided and copy dated, initialed and placed in chart.
[2025-04-30 11:17] VITALS: BP 126/78; PULSE 104; RESP 18; TEMP 36.4; O2SAT 94
--- NOTE | 2025-04-30 14:00 | P.PN_ITS ---
Subjective 2 Subjective: remains confused, however close to baseline per family, attempting to work with PT today Medications: Reviewed: Yes Vitals/I&O/Wt Last Vital Signs Temp 98.4 F 04/30/25 21:00 Pulse 110 H 04/30/25 21:00 Resp 15 04/30/25 21:00 BP 110/61 04/30/25 21:00 Pulse Ox 92 04/30/25 21:00 O2 Del Method Room Air 04/30/25 16:00 O2 Flow Rate 10 04/28/25 18:35 04/30/25 04/30/25 04/30/25 06:59 14:59 22:59 Intake Total 240 / 240 120 / 360 Output Total 450 / 1100 Balance -450 / -108.334 240 / 240 120 / 360 Weight last 48 hrs Weight 46.312 kg Weight 43.318 kg Physical Exam 2 Narrative: General: No acute distress, AO x1 HEENT: PERRLA, pupils bilaterally equal and reactive, pallors not present Chest: Normal vesicular breath sounds, no added sounds, equal good air entry bilaterally CVS: S1-S2 regular, no murmurs, no tachycardia, no gallops, no rubs Neuro: No focal deficits, no facial deformity, AO x1, baseline aphasia Urinary Catheter Management: Bose: Cath Placed During This Visit: yes, but has since been removed by the nurse Reason for Continuing Indwelling Catheter: Decision to DC Catheter Urinary Catheter Date of Insertion: 04/28/25 Urinary Catheter Time of Insertion: 08:31 Date Urinary Catheter Removed: 04/30/25 Time Urinary Catheter Discontinued: 17:22 Data 04/30/25 04:10 04/30/25 04:10 A&P Assessment and plan 1. Closed intertrochanteric fracture of right hip: Status post intertrochanteric nail repair of left hip fracture in an uneventful procedure. Noted acute blood loss anemia after fracture and surgery discussed with her daughter, hemoglobin down to 9. Repeat hemoglobin is requested. Will also reassess blood counts in the morning. SCD for DVT prophylaxis. Check Hemoccult. Pending assessment by PT, OT, pending disposition planning discharge arrangements. In case she was able to undergo rehabilitation family may consider with case management whether SNF may be an option versus home health. They would rather avoid long-term placement at this time. They are also concerned in case of returning home on what not to do so as not to harm the newly repaired hip. Discussed with case management, PT, and nursing. History obtained from her family due to dementia. She lives with her family. It is unclear how she ended up falling down. Imaging identified a left intertrochanteric hip fracture. Fall precautions. Reassess mental status with some encephalopathy/prolonged recovery after anesthesia. Hold further IV fluids for now. In case not resuming oral intake may have to resume IV fluid again. Monitor for risk of fluid overload. Pain management with acetaminophen, hydrocodone as needed, Dilaudid injection as needed for severe breakthrough pain. 2. Dementia: Late-stage dementia with limited ability to cooperate or follow directions; heightened risk for delirium surrounding pain control and anesthesia discussed. - Monitor for risk of delirium with underlying dementia Plan: Pain, acute : Pain management initiated for hip fracture-related pain. - Acetaminophen for pain - Hydrocodone as needed for moderate pain - Intravenous Dilaudid as needed for severe breakthrough pain Possible hyperglycemia : Blood glucose noted as 120 mg/dL today; history of diabetes uncertain per family. Prior hospitalization in December reportedly did not identify an issue with sugar. - A1c reviewed, noted prediabetes with A1c 6.4. Consistent carb diet when resumed. Will need follow-up. Stable bladder lacunar infarcts in the basal ganglia incidentally noted on CT. Small scalp contusion over the right parietal bone. Follow-up : Care coordination and discussions documented. - Discussed code status; family agreed not to pursue CPR if cardiac or respiratory arrest occurs - UA ordered and pending - Creatine kinase (CK) normal - Electrocardiogram (EKG) shows sinus rhythm with T-wave flattening in aVL and V2 on current interpretation; final read pending 04/30/25: Attempting to participate with PT today, mental status remains at baseline. Hb 7.4 today, will monitor with am labs, hemodynamially stable today. Transfusion threshold to be 7. appropriate disposition planning ongoing. PDMP PDMP Reviewed: Not Reviewed Attestations 2 Medical Necessity Statement*: appropriate disposition planning ongoing Coding Level of Care Code Acute Code for Chg Fwd Diagnoses Closed intertrochanteric fracture of right hip S72.141A Dementia F03.90
[2025-04-30 16:00] VITALS: BP 162/81; PULSE 89; RESP 20; TEMP 36.9; O2SAT 94
--- NOTE | 2025-04-30 16:56 | PC.NURSE ---
Patient/family refused all 1800 meds. Pt does not take po medications well.
[2025-04-30] MEDS: HYDROmorphone 0.5 MG/0.5 ML INJ 0.2 MG IVP (20:42)
[2025-04-30 21:00] VITALS: BP 110/61; PULSE 110; RESP 15; TEMP 36.9; O2SAT 92
[2025-04-30] MEDS: chlorhexidine gluconate 0.12% Btl 473 mL 30 ML MUCOUS MEM (21:05)
[2025-05-01] VITALS (9 sets, daily range): BP systolic 103–147; BP diastolic 66–74; PULSE 77–98; RESP 15–18; TEMP 36.6–37.7; O2SAT 91–97
[2025-05-01 04:31] LABS: Hematocrit 22.3 % (36-47); Hemoglobin 7.00 g/dL (11.27-16.99); Mean Corpuscular HGB Conc 31.4 g/dL (30-55); Mean Corpuscular Hemoglobin 29.2 pg (27-33); Mean Corpuscular Volume 92.9 fl (85-98); Nucleated Red Blood Cells % 0 %; Platelet Count 118 10^3/cmm (157-399); Red Blood Count 2.40 10^6/uL (3.85-5.65); White Blood Count 4.90 10^3/uL (3.29-11.43)
[2025-05-01 04:59] LABS: Alanine Aminotransferase 13 U/L (0-33); Albumin Level 3.1 g/dL (3.5-5.2); Alkaline Phosphatase 100 U/L (35-105); Anion Gap 13.4 (5-19); Aspartate Amino Transferase 32 U/L (0-32); Blood Urea Nitrogen 29 mg/dL (8-23); Calcium 8.3 mg/dL (8.5-10.5); Carbon Dioxide 26 mmol/L (22-29); Chloride 108 mmol/L (98-107); Creatinine Clr Calc Pharmacy 41.2503; Globulin 2.4 g/dL (1.3-4.6); Glucose 121 mg/dL (65-115); Osmolality Calculated 303 mOsm/kg (285-295); Potassium 4.4 mmol/L (3.5-5.1); Sodium 143 mmol/L (136-145); Total Protein 5.5 g/dL (6.6-8.7)
[2025-05-01] MEDS: sennosides-docusate Tablet 2 TAB PO ×2 (11:01→17:51)
[2025-05-01] MEDS: lactulose oral liq 20 gm/30 mL UDC 10 GM PO (11:01)
[2025-05-01] MEDS: chlorhexidine gluconate 0.12% Btl 473 mL 30 ML MUCOUS MEM (11:02)
[2025-05-01] MEDS: multivitamin therapeutic Tablet 1 TAB PO (11:02)
[2025-05-01] MEDS: mupirocin oint 22 gm 1 APPLIC NASAL ×2 (11:05→17:51)
--- NOTE | 2025-05-01 14:38 | PC.NURSE ---
[facility]: [phone] ready transport: [phone]
--- NOTE | 2025-05-01 15:14 | P.DS_ITS ---
Discharge Providers Date of Admission: 04/28/25 08:59 Date of Discharge: May 01, 2025 Attending Provider at Admission: Wesley Dean Attending Provider at Discharge: Maris Londono MD Diagnoses at Discharge Discharge Diagnosis 1. Closed intertrochanteric fracture of right hip: 2. Dementia: Reason for Visit Reason for Visit: Fall, RT Hip Pain Hospital Course Hospital Course 79 year old with history of advanced dementia who lives at home with family support, was found to have fallen to the floor by family and brought to the ER. She was found to have a hip fracture and underwent Closed reduction with internal fixation left hip fracture using proximal trochanteric nail. Post op course was remarkable for post op anemia, likely related to blood loss. No active bleeding at this time. Her Hb today had drifted down to 7.0 for which she received one unit PRBC transfusion. Recommend to check CBC in 2-3 days. PT evaluation was completed, she is being discharged to SNF in stable condition at baseline mentation today. Physical Exam Narrative: General: No acute distress, AO x1, elederly frail woman HEENT: PERRLA, pupils bilaterally equal and reactive, pallors not present Chest: Normal vesicular breath sounds, no added sounds, equal good air entry bilaterally CVS: S1-S2 regular, no murmurs, no tachycardia, no gallops, no rubs Abdomen: Soft, nontender, no organomegaly, bowel sounds present Neuro: No focal deficits, AO x1, power 5/5 in all limbs Extremities: Healthy surgical dressing present on the left hip with minimal blood staining Urinary Catheter Management: Bose: Cath Placed During This Visit: yes, but has since been removed by the nurse Reason for Continuing Indwelling Catheter: Decision to DC Catheter Urinary Catheter Date of Insertion: 04/28/25 Urinary Catheter Time of Insertion: 08:31 Date Urinary Catheter Removed: 04/30/25 Time Urinary Catheter Discontinued: 17:22 Discharge Data Studies Completed and Pending Completed Studies During Hospitalization Category Date Time Status CT head wo con* [id number] Stat Cat Scan 04/28/25 07:49 Completed XR chest 1V portable [id number] Stat Exams 04/28/25 07:30 Completed XR hip LT 1V wo/w pel [id number] Routine Exams 04/28/25 18:04 Completed XR hip LT 2-3V wo/w pel* [id number] Stat Exams 04/28/25 07:17 Completed Pending at discharge Category Date Time Status Leukocyte Reduced RBC Routine Lab 05/01/25 03:23 Results Occult Blood Stool [Immunochemical Fecal OCB] Routine Lab 04/29/25 11:47 Uncollected Type and Screen Routine Lab 05/01/25 03:23 Results Radiology Impressions Hip/Pelvis X-Ray 04/28/25 07:17 IMPRESSION: Left hip fracture as above. Chest X-Ray 04/28/25 07:30 IMPRESSION: No acute chest abnormality as above. Head CT 04/28/25 07:49 IMPRESSION: 1. No acute intracranial hemorrhage or edema. 2. Moderate symmetric atrophy and small vessel disease. Stable bilateral lacunar infarcts in the basal ganglia. 3. Very small scalp contusion over the high RIGHT parietal bone. Hip X-Ray 04/28/25 18:04 IMPRESSION: Interval placement of medullary kayden and intertrochanteric screw in the setting of left femoral neck fracture extending to the lesser trochanter which remains superiorly and medially displaced. Improved anatomic alignment relative to preoperative imaging of 04/28/2025 at 7:25 a.m.. Laboratory Results WBC 4.90 10^3/uL (3.29-11.43) 05/01/25 03:23 RBC 2.40 10^6/uL (3.85-5.65) L 05/01/25 03:23 Hgb 7.00 g/dL (11.27-16.99) L 05/01/25 03:23 Hct 22.3 % (36-47) L 05/01/25 03:23 MCV 92.9 fl (85-98) 05/01/25 03:23 MCH 29.2 pg (27-33) 05/01/25 03:23 MCHC 31.4 g/dL (30-55) 05/01/25 03:23 RDW 13.0 % (12.1-15.1) 05/01/25 03:23 Plt Count 118 10^3/cmm (157-399) L 05/01/25 03:23 MPV 13.6 fL (7.4-10.4) H 05/01/25 03:23 Neut % (Auto) 72.9 % 05/01/25 03:23 Lymph % (Auto) 18.8 % 05/01/25 03:23 [place] % (Auto) 7.3 % 05/01/25 03:23 Eos % (Auto) 0.6 % 05/01/25 03:23 Baso % (Auto) 0.0 % 05/01/25 03:23 Neut # (Auto) 3.57 10^3/uL (1.8-7.7) 05/01/25 03:23 Lymph # (Auto) 0.9 10^3/uL (0.8-4.8) 05/01/25 03:23 [place] # (Auto) 0.4 10^3/uL (0.2-0.9) 05/01/25 03:23 Eos # (Auto) 0.0 10^3/uL (0.0-0.8) 05/01/25 03:23 Baso # (Auto) 0.0 10^3/uL (0.0-0.1) 05/01/25 03:23 Nucleated RBC % (auto) 0 % 05/01/25 03:23 Nucleated RBCs # 0.0 /100WBC 05/01/25 03:23 Sodium 143 mmol/L (136-145) 05/01/25 03:23 Potassium 4.4 mmol/L (3.5-5.1) 05/01/25 03:23 Chloride 108 mmol/L (98-107) H 05/01/25 03:23 Carbon Dioxide 26 mmol/L (22-29) 05/01/25 03:23 Anion Gap 13.4 (5-19) 05/01/25 03:23 BUN 29 mg/dL (8-23) H 05/01/25 03:23 Creatinine 0.8 mg/dL (0.5-0.9) 05/01/25 03:23 GFR Calculation Not Reportable 05/01/25 03:23 Glucose 121 mg/dL (65-115) H 05/01/25 03:23 Estimat Average Glucose 137 04/28/25 07:27 Hemoglobin A1c 6.4 % (4.0-6.0) H 04/28/25 07:27 Calculated Osmolality 303 mOsm/kg (285-295) H 05/01/25 03:23 Calcium 8.3 mg/dL (8.5-10.5) L 05/01/25 03:23 Total Bilirubin 0.4 mg/dL (0.15-1.2) 05/01/25 03:23 AST 32 U/L (0-32) 05/01/25 03:23 ALT 13 U/L (0-33) 05/01/25 03:23 Alkaline Phosphatase 100 U/L (35-105) 05/01/25 03:23 Creatine Kinase 86 U/L (26-192) 04/28/25 07:27 Total Protein 5.5 g/dL (6.6-8.7) L 05/01/25 03:23 Albumin 3.1 g/dL (3.5-5.2) L 05/01/25 03:23 Globulin 2.4 g/dL (1.3-4.6) 05/01/25 03:23 Urine Color Yellow (Yellow) 04/28/25 08:27 Urine Appearance Clear (CLEAR) 04/28/25 08:27 Urine pH 7.5 (5-7) 04/28/25 08:27 Ur Specific [place] 1.020 (1.005-1.030) 04/28/25 08:27 Urine Protein Negative (Negative) 04/28/25 08:27 Urine Glucose (UA) Negative (Normal) 04/28/25 08:27 Urine Ketones Negative (Negative) 04/28/25 08:27 Urine Blood Negative (Negative) 04/28/25 08:27 Urine Nitrate Negative (Negative) 04/28/25 08:27 Urine Bilirubin Negative (Negative) 04/28/25 08:27 Urine Urobilinogen 1.0 mg/dL (Negative) 04/28/25 08:27 Ur Leukocyte Esterase Negative (Negative) 04/28/25 08:27 Urine RBC 3-5 /hpf (0-2) 04/28/25 08:27 Urine WBC 0-5 /hpf (0-5) 04/28/25 08:27 Ur Squamous Epith Cells 0-5 /hpf (0-5) 04/28/25 08:27 Amorphous Sediment Not Reportable 04/28/25 08:27 Urine Bacteria None seen /hpf (NONE) 04/28/25 08:27 Hyaline Casts 2.05 /lpf 04/28/25 08:27 Blood Type O Positive 05/01/25 03:23 Rho(D) Type Rh positive 05/01/25 03:23 Antibody Screen Negative 05/01/25 03:23 Crossmatch See Detail 05/01/25 03:23 Vitals Last Vital Signs Temp 98.2 F H 05/01/25 13:15 Pulse 98 05/01/25 13:15 Resp 18 05/01/25 13:15 BP 142/74 05/01/25 13:15 Pulse Ox 91 05/01/25 13:15 O2 Del Method Room Air 05/01/25 11:14 O2 Flow Rate 10 04/28/25 18:35 Discharge Plan Discharge Patient Disposition: Xfer SNF Condition: Stable Prescriptions: New polysaccharide iron complex [Ferrex 150] 150 mg iron Capsule 150 mg PO BIDWM 30 Days Qty: 30 0RF tramadol 50 mg Tablet 50 mg PO Q8H PRN (Reason: Mild To Moderate Pain) 5 Days Qty: 15 0RF calcium carbonate 200 mg calcium (500 mg) Tablet,Chewable 1,000 mg PO BID Qty: 0 0RF naproxen 500 mg tablet 500 mg PO BID PRN (Reason: pain) Qty: 10 0RF Discharge Order = DC NOW: Discharge Order (Routine); Ordered 05/01/25 Ordered By: Maris Londono Referrals: [facility] [Outside] , LEATHER ROLLER [Nurse Practitioner, Nurse Practitioner] - 4-7 days Referral Note: Please call your primary care provider Saturday for the need of a hospital discharge follow up in 4-7 days. Nico Graff MD [Physician, Orthopedics] - 05/13/25 1:45 pm Patient Instructions: Acute Wound Care (DC), Opioid Safety, Post Anesthesia Care, Patient Portal & Sudeep Instructions Discharge Attestations Time Spent in Discharge Care*: greater than 30 min Quality Metrics Clinical Quality Measures [ No reported AMI, CVA or VTE this stay] Coding Level of Care Code Acute Code for Chg Fwd Diagnoses Closed intertrochanteric fracture of right hip S72.141A Dementia F03.90
--- NOTE | 2025-05-01 15:52 | PC.NURSE ---
Patient meets criteria for conditional discharge. Blood hs finished transfusing. Nurse called [facility]. SPoke to Dina and gave report.
--- NOTE | 2025-05-01 18:21 | PC.NURSE ---
[facility] ambulance picked up patient, to go to [facility]. Report already called. Family was present during transfer. IVs removed.
--- NOTE | 2025-05-01 18:21 | PC.NURSE ---
Late note: the first unit of blood, the irradiated red blood cells, had an issue with scanning the bag. It was returned to Blood bank within the 20 minute window and a new unit was retrieved and infused as ordered. The TAR still lists the original irradiated unit as issued however. Blood bank is aware of this.
== END 2025-05-01 18:24 | disposition skilled nursing facility (03) | DRG 481 ==
LOC: ER 07:51 → ER IP 08:59 → MEDSURG 11:07
PROVIDERS: Orthopaedic Surgery; Admitting Provider Internal Medicine; Emergency Provider Family Medicine; Visit Provider Student in an Organized Health Care Education/Training Program
PROC: 0QS636Z Reposition Right Upper Femur with Intramedullary Internal Fixation Device, Percutaneous Approach (ICD-10-PCS; CPT 27245; principal; 2025-04-28 15:25)
DX: S72.141A Displaced intertrochanteric fracture of right femur, initial encounter for closed fracture (principal); D62 Acute posthemorrhagic anemia; W19.XXXA Unspecified fall, initial encounter; F03.90 Unspecified dementia, unspecified severity, without behavioral disturbance, psychotic disturbance, mood disturbance, and anxiety; R73.9 Hyperglycemia, unspecified
CPT/HCPCS: 36415; 36430; 51702; 70450; 71045; 73501; 73502; 76000; 80053; 81001; 82550; 83036; 85018; 85025; 86850; 86900; 86920; 93005; 96374; 96375; 97161; 97167; 97530; 97535; 99285; C1713; C1776; J0690; J1171; J1885; J2270; J2405; J2704; J3010; J7030; J9999; P9016; P9058

== ENCOUNTER → 2025-05-28 09:00 | Outpatient (BNVA) | payer MEDICARE, OTHER, SELFPAY | PROVIDERS: Visit Provider Orthopaedic Surgery | DX: Z98.890 Other specified postprocedural states (principal); Z87.81 Personal history of (healed) traumatic fracture | CPT/HCPCS: 73502; 99024 ==

== ENCOUNTER 2025-06-18 15:45 | Inpatient (IN) | payer MEDICARE, OTHER, SELFPAY ==
--- OUTSIDE RECORDS SUMMARY | 2022-11-19 04:45 | XMS_ITS | Continuity of Care Document ---
Author Organization [facility] Address [address] [place] [address] Phone Care Team Providers Care Pea Viner Mechanic Name Role Phone Sid Mcclelland MD Unavailable Unavailable Allergies, Adverse Reactions, Alerts Substance Reaction Status Criticality prednisolone Active No Information PROCHLORPERAZINE MALEATE Active No Information PROCHLORPERAZINE EDISYLATE Active N o Information Medications Medication Instructions Dosage Effective Dates (start - stop) Status Comments furosemide 20 mg tablet Take 1 tablet - Active trazodone 50 mg tablet Take 1 tablet at night - Active trazodone 50 mg tablet Take 1 tablet at night - Active isosorbide dinitrate 30 mg tablet Take 1 tablet every day - Active venlafaxine ER 37.5 mg capsule,extended release 24 hr Take 1 tablet every day - Active Plavix 75 mg tablet Take 1 tablet every day - Active pantoprazole 40 mg tablet,delayed release Take 1 tablet every day - Active mycophenolate mofetil 200 mg/mL oral suspension Take 1 tablet every day - Active tramadol 50 mg tablet 1/2 every 4 hours - Active gabapentin 100 mg capsule Take 1-3 at night - Active OMEPRAZOLE [address] Take 1 tablet every day - Active BIOTIN 800 mcg ORAL TABLET Take 1 tablet every day - Active CYANOCOBALAMIN (VITAMIN B-12) 1,000 mcg ORAL TABLET Take 1 tablet every day - Active CHOLECALCIFEROL (VITAMIN D3) 2,000 unit ORAL CAPSULE Take 1 tablet every day - Active verapamil ER 240 mg 24 hr Cap take 1 capsule (240MG) by ORAL route every day 240 MG - Active allopurinol 100 mg Tab take 1 tablet (10 0MG) by ORAL route every day 100 MG - Active Aspir-81 81 mg Tab take 1 tablet (81MG) by ORAL route every day - Active Ambien 10 mg Tab take 1 tablet (10MG) by ORAL route every day at bedtime 10 MG - Active Fish Oil 1,200 mg-144 mg-216 mg Cap take 1 by Oral route 2 times every day 1.00 - Active atorvastatin 10 mg tablet Take 1 tablet every day - Active levothyroxine 25 mcg tablet Take 1 tablet every day - Active famotidine 40 mg tablet Take 1 tablet ev curtis day - Active candesartan 4 mg tablet Take 2mg tablet at night - Active duloxetine 60 mg capsule,delayed release take 1 capsule by oral route 2 times every day 60 MG - Active carvedilol 6.25 mg tablet Take 1 tablet every day - Active clonidine HCl 0.2 mg tablet 1 at night - Active Procedures Procedure Date Ophth Serv: Med Exam; Interm E Ophth Serv: Med Exam; Comp Est Refraction Ophth Serv: Med Exam; Comp Est Ophth Serv: Med Exam; Comp Est Ophth Serv: Med Exam; Comp Est Ophth Serv: Med Exam; Interm E Ophth Serv: Med Exam; Interm E Ophth Serv: Med Exam; Comp Est Ophth Serv: Med Exam; Interm E Ophth Serv: Med Exam; Interm E Ophth Serv: Med Exam; Interm E Ophth Serv: Med Exam; Interm E Ophth Serv: Med Exam; Interm E Apr-16-20 19 Ophth Serv: Med Exam; Interm E Ophth Serv: Med Exam; Interm E Ophth Serv: Med Exam; Interm E 19 Ophth Serv: Med Exam; Interm E 19 Ophth Serv: Med Exam; Interm E Ophth Serv: Med Exam; Interm E 19 Ophth Serv: Med Exam; Interm E 19 Offic/outpt E&m Estab Mod-hi 2 18 Ophth Serv: Med Exam; Comp Est 18 Ophth Serv: Med Exam; Comp Est 17 Ophth Serv: Med Exam; Comp Est 16 Ophth Serv: Med Exam; Interm E 16 Refraction Ophth Serv: Med Exam; Comp Est 15 Ophth Serv: Med Exam; Comp Est 14 Refraction Offic/outpt E&m Estab Low-mod 4 Offic/outpt E&m Estab Mod-hi 2 13 [facility] Osmolarity Test T[facility]Lab Osmolarity Test EST. Routine Exam Comprehensive 013 Refraction Fundus Photography W/i&r EST. Routine Exam Comprehensive 012 Refraction Ophth Serv: Med Exam; Comp Est 10 Refraction Advance Directives Directive Yes / No Effective Date File Name No Information Encounters Encounter Description Practice Location Reason(s) For Visit Diagnoses Date Provider Providers Copied on Encounter [facility], [address], [place], [place], [address] , [place] [phone] [facility] problem (chief complaint) Other herpes zoster eye diseaseOther keratitis 3 Krystin Lau. [address], [place], [address], [place]. tel:[phone] Referring Provider: Sid Dsouza, [address], [place], [address]. tel:[phone] [facility], [address], [place], [place], [address] , [place] tel: [phone] [facility] Age-related nuclear cataract, bilateralOther herpes zoster eye disease Sep-2 2 Krystin Lau. [address], [place], [address], [place]. tel:[phone] Referring Provider: Sid Dsouza, [address], [place], [address]. tel:[phone] [facility], [address], [place], [place], [address] , [place] tel: [phone] [facility] comprehensive eye exam (chief complaint) Combined forms of age-related cataract, bilateralOther herpes zoster eye diseaseDry eye syndrome of bilateral lacrimal glandsOther disorders of refraction Apr-0 2 Mike Matute. [address], [place], [address], [place]. tel:[phone] Referring Provider: Giovani Mckeon OD, [address], [place], [address]. tel:[phone] [facility], [address], [place], [place], [address] , [place] tel: [phone] [facility] comprehensive eye exam (chief complaint) Age-related nuclear cataract, bilateralOther herpes zoster eye disease Sep-1 1 Krystin Lau. [address], [place], [address], [place]. tel:[phone] Referring Provider: Sid Dsouza, [address], [place], [address]. tel:[phone] [facility], [address], [place], [place], [address] , [place] tel:[phone] [facility] 6 month cornea check with DFE (chief complaint) Age-related nuclear cataract, bilateralOther herpes zoster eye diseaseBenign neoplasm of right choroid Mar-0 1 Krystin Lau. [address], [place], [address], [place]. tel:[phone] Referring Provider: Sid Dsouza, [address], [place], [address]. tel:[phone] [facility], [address], [place], [place], [address] , [place] tel: [phone] [facility] 6 MTH RECHECK (chief complaint) Zoster keratitisDry eye syndrome of right lacrimal gland Apr-0 0 Krystin Lau. [address], [place], [address], [place]. [phone] Referring Provider: Sid Dsouza, [address], [place], [address]. tel:[phone] [facility], [address], [place], [place], [address] , [place] tel: [phone] [facility] Recheck (chief complaint) Other herpes zoster eye disease Oct-0 3 0 Krystin Lau. [address], [place], [address], [place]. [phone] Referring Provider: Sid Dsouza, [address], [place], [address]. tel:[phone] [facility], [address], [place], [place], [address] , [place] tel: [phone] [facility] comprehensive eye exam (chief complaint) Zoster keratitisAge-r elated nuclear cataract, bilateralBenig n neoplasm of right choroid Aug-0 0 Krystin Lau. [address], [place], [address], [place]. tel:[phone] Referring Provider: Sid Dsouza, [address], [place], [address]. tel:[phone] [facility], [address], [place], [place], [address] , [place] tel: [phone] [facility] recheck (chief complaint) Zoster keratitis May-0 8-201 9 Krystin Lau. [address], [place], [address], [place]. tel:[phone] Referring Provider: Sid Dsouza, [address], [place], [address]. tel:[phone] [facility], [address], [place], [place], [address] , [place] tel: [phone] [facility] HZV check (chief complaint) Zoster keratitis 9 Krystin Lau. [address], [place], [address], [place]. [phone] Referring Provider: Sid Dsouza, [address], [place], [address]. tel:[phone] [facility], [address], [place], [place], [address] , [place] tel: [phone] [facility] Recheck (chief complaint) Other herpes zoster eye disease 9 Krystin Lau. [address], [place], [address], [place]. tel:[phone] Referring Provider: Sid Dsouza, [address], [place], [address]. tel:[phone] [facility], [address], [place], [place], [address] , [place] tel: [phone] [facility] recheck (chief complaint) Zoster keratitis 9 Krystin Lau. [address], [place], [address], [place]. [phone] Referring Provider: Sid Dsouza, [address], [place], [address]. tel:[phone] [facility], [address], [place], [place], [address] , [place] tel: [phone] [facility] Cornea rec (chief complaint) Zoster keratitis 9 Krystin Lau. [address], [place], [address], [place]. tel:[phone] Referring Provider: Sid Dsouza, [address], [place], [address]. tel:[phone] [facility], [address], [place], [place], [address] , [place] tel:[phone] [facility] recheck (chief complaint) Zoster keratitis 9 Krystin Lau. [address], [place], [address], [place]. [phone] Referring Provider: Sid Dsouza, [address], [place], [address]. tel:[phone] [facility], [address], [place], [place], [address] , [place] tel:[phone] [facility] Cornea Rec (chief complaint) Zoster keratitis 9 Krystin Lau. [address], [place], [address], [place]. [phone] Referring Provider: Sid Dsouza, [address], [place], [address]. tel:[phone] [facility], [address], [place], [place], [address] , [place] tel:[phone] [facility] HZV check (chief complaint) Zoster keratitisOther herpes zoster eye disease 9 Krystin Lau. [address], [place], [address], [place]. tel:[phone] Referring Provider: Sid Dsouza, [address], [place], [address]. tel:[phone] [facility], [address], [place], [place], [address] , [place] tel:[phone] [facility] recheck (chief complaint) Zoster keratitis 9 Krystin Lau. [address], [place], [address], [place]. tel:[phone] Referring Provider: Sdi Dsouza, [address], [place], [address]. tel:[phone] [facility], [address], [place], [place], [address] , [place] tel:[phone] [facility] cornea check (chief complaint) Other herpes zoster eye diseaseZoster keratitis 9 Krystin Lau. [address], [place], [address], [place]. tel:[phone] Referring Provider: Sid Dsouza, [address], [place], [address]. tel:[phone] [facility], [address], [place], [place], [address] , [place] tel:[phone] [facility] problem (chief complaint) Zoster keratitis 9 Mckeon OD Giovani. [address], [place], [address], [place]. tel:[phone] Referring Provider: Giovani Mckeon OD, [address], [place], [address]. tel:[phone] [facility], [address], [place], [place], [address] , [place] tel:[phone] [facility] recheck (chief complaint) Zoster keratitis 9 Krystin Lau. [address], [place], [address], [place]. tel:[phone] Referring Provider: Sid Dsouza, [address], [place], [address]. tel:[phone] Offic/outpt E&m Estab Mod-hi 2 [facility], [address], [place], [place], [address] , [place] tel:[phone] [facility] problem (chief complaint) Zoster conjunctivitis 8 Newth OD Flaquito. [address], [place], [address], [place]. tel:[phone] Referring Provider: Flaquito Cotter OD, [address], [place], [address]. tel:[phone] [facility], [address], [place], [place], [address] , [place] tel: [phone] [facility] comprehensive eye exam (chief complaint) Age-related nuclear cataract, bilateralBenig n neoplasm of right choroid 8 Krystin Lau. [address], [place], [address], [place]. [phone] Referring Provider: Sid Dsouza, [address], [place], [address]. tel:[phone] [facility], [address], [place], [place], [address] , [place] tel: [phone] [facility] routine exam (chief complaint) Age-related nuclear cataract, bilateralBenig n neoplasm of right choroid 7 Krystin Lau. [address], [place], [address], [place]. tel:[phone] Referring Provider: Sid Dsouza, [address], [place], [address]. tel:[phone] [facility], [address], [place], [place], [address] , [place] tel: [phone] [facility] comprehensive eye exam (chief complaint) Age-related nuclear cataract, bilateral 6 Krystin Lau. [address], [place], [address], [place]. tel:[phone] Referring Provider: Sid Dsouza, [address], [place], [address]. tel:[phone] [facility], [address], [place], [place], [address] , [place] tel:[phone] [facility] problem (chief complaint) Other herpes zoster eye diseaseAge-rel ated nuclear cataract, bilateral Oct- 6 Krystin Lau. [address], [place], [address], [place]. tel:[phone] Referring Provider: Sid Dsouza, [address], [place], [address]. tel:[phone] [facility], [address], [place], [place], [address] , [place] tel:[phone] [facility] comprehensive eye exam (chief complaint) Age-related nuclear cataract, bilateralBenig n neoplasm of unspecified choroid 5 Krystin Lau. [address], [place], [address], [place]. tel:[phone] Referring Provider: Sid Dsouza, [address], [place], [address]. tel:[phone] [facility], [address], [place], [place], [address] , [place] tel:[phone] [facility] routine exam (chief complaint) Senile Nuclear Cataract 4 Krystin Lau. [address], [place], [address], [place]. tel:[phone] Referring Provider: Sid Dsouza, [address], [place], [address]. tel:[phone] Offic/outpt E&m Estab Low-mod [facility], [address], [place], [place], [address] , [place] tel:[phone] [facility] Blepharoconjun ctivit Nos 4 Mike Matute. [address], [place], [address], [place]. tel:[phone] Referring Provider: Giovani Mckeon OD, [address], [place], [address]. tel:[phone] Offic/outpt E&m Estab Mod-hi 2 [facility], [address], [place], [place], [address] , [place] tel:[phone] [facility] Tear Film Insuffic Nos 3 Bernice Mcclendon. [address], [place], [address], [place]. tel:[phone] Referring Provider: Danelle Avila, [address], [place], [address]. tel:[phone] [facility], [address], [place], [place], [address] , [place] tel:[phone] [facility] Tear Film Insuffic NosSenile Nuclear CataractMyopia Tear Film Insuffic NosSenile Nuclear Cataract 3 Bernice Mcclendon. [address], [place], [address], [place]. tel:[phone] Referring Provider: Danelle Avila, [address], [place], [address]. tel:[phone] [facility], [address], [place], [place], [address] , [place] tel:[phone] [facility] Tear Film Insuffic NosChoroidal NevusTear Film Insuffic NosTear Film Insuffic NosChoroidal Nevus 0 2 Bernice Mcclendon. [address], [place], [address], [place]. tel:[phone] Referring Provider: Danelle Avila, [address], [place], [address]. tel:[phone] [facility], [address], [place], [place], [address] , [place] tel:[phone] [facility] MyopiaSenile Nuclear CataractChoroi murray NevusTear Film Insuffic Nos 2 Bernice Mcclendon. [address], [place], [address], [place]. tel:[phone] Referring Provider: Danelle Avila, [address], [place], [address]. tel:[phone] [facility], [address], [place], [place], [address] , tel: [phone] [facility] Senile Nuclear CataractChoroi murray Martins 0 Kiya Sargent. [address], [place], [place], [address], . [phone] Referring Provider: Arie Gallegos MD, [address], [place], [address] . tel:[phone] [facility], [address], [place], [place], [address] , tel: [phone] [facility] No Information No Information Referring Provider: Arie Gallegos MD, [address], [place], [address] . tel:[phone] Family History Family Member Type Diagnosis Age At Onset Father Problem (finding) cataract Problem (finding) Aunt Problem (finding) Diabetes mellitus Father Problem (finding) Arthritis Sister Problem (finding) Arthritis Mother Problem (finding) HBP Father Problem (finding) Heart Disease Payers Payer name Insurance type Covered alliance party ID Authoriza tion(s) Medicare [facility] [id number] [facility] Insurance [id number] Social History Type Description Quantity Date Captured Comments Alcohol Use Details No Caffeine Use Details Tobacco Use Status Non-smoker Smoking Status Never smoker Non-Smoking Tobacco Use Details : No Details Available : No Details Available Sex Female Chief Complaint And Reason For Visit From encounter dated '11/19/2022 10:45'. problem (chief complaint). Description: The 77 year old female presents for problem in the right eye. Associated symptoms include: eye pain and blurred vision It started about 3 day(s) ago. It occursall the time. The onset was gradual. It affects right eye. Patient reports having shingles in the past in the right eye. Patient reports eye pain and blurry vision has improved since three days ago. Reason For Referral Reason For Referral No Information History Of Present Illness Encounter Date Complaint History Of Prese nt Illness problem The 77 year old female presents for problem in the right eye. Associated symptoms include: eye pain and blurred vision It started about 3 day(s) ago. It occurs all the time. The onset was gradual. It affects right eye. Patient reports having shingles in the past in the right eye. Patient reports eye pain and blurry vision has improved since three days ago. Cornea check-Shingles comprehensive eye exam 76 year o ld female presents for comprehensive eye exam. Patient states her vision has been blurry gradually for months. Patient has been battling high blood pressure and would like to talk to about that. Patient states she does not see any floaters or flashes. 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 PT stated vision is still the same as before. PT is still having pain RUL. PT does want to see if she needs new glasses. 6 month cornea check with DFE Th e 75 year old female presents for 6 month cornea check with DFE in the both eyes. Patient states she continues to have post-herpetic neuralgia in OD, but declines worsening. Patient states she will notice OD pain on a daily basis. Patient declines vision changes OU. Patient declines recent health changes. Patient continues with 200mg of Acyclovir daily. 6 MTH RECHECK The 74 year old female presents for 6 mth recheck shingles OD. Patient reports she is doing the same since last visit. Patient reports quite a bit of discomfort. Reports OD eye lids feel swollen often. Patient reports she is still using acyclovir. Recheck The 74 year old female presents for Recheck in the right eye. Patient reports having shingles OD. Patient's last visit 08/18/2019. Patient reports no decrease in vision from shingles OD. Patient reports taking antiviral medication called acyclovir 1x per day for shingles OD. comprehensive eye exam The 74 ye ar old female presents for comprehensive eye exam in the both eyes. It started about 1 year(s) ago. It occurs all the time. It affects Vision is not affected. Associated symptoms include: happy with current vision correction. pain in eye lid from shingles a year ago. still on Gabapentin and Tylenol for pain management. recheck The 73 year old female presents for evaluation of recheck in the right eye. Per patient, pain OD is gradually getting better. It feels achy most of the time. RUL always feels swollen. She is taking Acyclovir 400mg once daily and using PF twice weekly OD. Vision is stable. Does feel improved. HZV check The 73 year old female presents for HZV check in the right eye. now using pred forte 1 drop Saturday, saturday and Saturday. using Acyclovir 400. On occasion notes some sharp pains around the OD- This is not changed since decreasing pred forte Recheck recheck The 73 year old female presents for recheck in the right eye. Patient is still experiencing nerve pain from the shingles, no change since her last visit with us. She reports no decreased vision, and no ocular changes. She is using PF BID OD, and is taking Acyclovir BID. Cornea rec The 73 year old female presents for Cornea rec in the right eye. pt st od seems better but it is still very sore around the eye its self, Zoster rec od, pred tid od, Acyclovir 400mg bid recheck The 73 year old female presents for recheck in the right eye. Patient is using Pred forte TID OD and taking Acyclovir 400mg BID. Per patient, her right eye still hurts. It feels swollen and she can feel nerves moving around in the eye. Patient is not photophobic and vision seems stable. Cornea Rec The 73 year old female presents for Cornea Rec in the right eye. pt st od is still sore but better from last visit, acyclovir 400mg bid po, pred forte qid od HZV check The 73 year old female presents for HZV check in the right eye. currently taking Acyclovir 400mg. Seems to be improving, but still has some FBS or pain and itchiness recheck The 73 year old female presents for recheck in both eyes. Patient states vision comes and goes, today it seems more blurred than other days. Patient complains OD feels like there is something in it at times, states it also itches. OD is red some days and less red others. Symptoms are worse in the mornings. Patient uses PFAT's every 2-3 hours. Patient is currently taking acyclovir 400 mg po tid. cornea check The 73 year old female presents for cornea check in the right eye. OD vision is still blurry. OD still hurts. using Acyclovir 400 mg TID problem Patient is being followed by Dr. Mcclelland for Shingles in the OD. She states that she saw him on 08/19 her vision wasn't this bad. She states that she does not want to go the weekend without checking the Shingles. recheck The 73 year old female presents for recheck in the right eye. Patient is taking Acyclovir q 3-4 hours, no problems with medication. Patient reports that she still has generalized pain in the right eye area, in eye and all around, even in her head. Right eye is still watering, white in color, but is improving. Patient has not noticed a decrease in va. problem The 73 year old female presents for problem in the right eye. Patient thinks that she has Shingles OD, forehead and scalp. Patient reports eye pain, irritation, photophobia, redness, tearing and watering. Patient states that before she was seen by ENT for hearing loss and prescribed PREDNISON 20 mg x 10 days and on 08/04/18 she started having stabbing pain ear and face right side of head. ENT then increased PREDNISON to 30 mg. 2 days ago she broke out in shingles face eye ear scalp. Patient states that she has had this before and is sure that this is what it is. Gerald has not seen PCP yet. No other concerns. Last dose of pred was this am. comprehensive eye exam The 73 ye ar old female presents for comprehensive eye exam in both eyes. PT stated vision is doing good. Vision about the same as last year. PT doesnt feel she needs new glasses. routine exam The 72 year old female presents for routine exam in both eyes. Patient reports no changes in vision and happy with current vision correction. Patient said she does not have any complaints or concerns at this time. comprehensive eye exam The 71 ye ar old female presents for comprehensive eye exam in both eyes. PT stated vision is doing good. No complaints at all. PT stated she doesnt want an refration because she just got a new lens in October. problem The 70 year old female presents for problem in the left eye. PT has noticed some pain around the left eye, also some pain in the eye. OS also gets tired in the evening. Wants to make sure everything is okay comprehensive eye exam The 69 ye ar old female presents for comprehensive eye exam in both eyes. It started about 1 year(s) ago. Pt states that reading and distance va is stable. routine exam The 68 year old female presents for routine exam in both eyes. Patient reports eye pain. Vision is not affected. The symptom is constant. The condition is stable. Functional Status Date Functional Assessmen t No Information Instructions Date Instruction Additional Infor jean-claude Other keratitis, OD - discussed frequent and continued use of AT's Related to Other keratitis Other herpes zoster eye disease, - currently taking gabapentin tid Related to Other herpes zoster eye disease Patient education Related to Age -related nuclear cataract, bilateral Age-related nuclear cataract, bilateral, OU - RTC 1 Year for Total Eye Exam. EHR Note to Dr. Deluca Related to Age-related nuclear cataract, bilateral Other herpes zoster eye disease, OD - currently taking gabapentin Related to Other herpes zoster eye disease Other disorders of r efraction, OU - New glasses Rx was given today. Annual visit letter to PCP. Related to Other disorders of refraction Combined forms of ag e-related cataract, bilateral, OU - Advised patient of condition (moderate cataract formation in both eyes) Related to Combined forms of age-related cataract, bilateral Other herpes zoster eye disease, - Stable appearance. Little (if any scarring). 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 There is no evidence of permanent changes to cornea. Explained no cure, will need artificial tears for maintenance. Related to Dry eye syndrome of bilateral lacrimal glands Patient education Related to Age -related nuclear cataract, bilateral Age-related nuclear cataract, bilateral, OU - pt wants new glasses, unable to get good MR OS after DFE. Tech MR different from hx rxRecommend MR when not dilated for rxRTC 1 year for TE and MR- patient will wait no new RX for now Related to Age-related nuclear cataract, bilateral Other herpes zoster eye disease, - stop Acyclovir for now. 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 EHR to [employer] Deluca. Start to taper Pred to QD Saturday, Saturday, and Saturday. Check IOP next visit. 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 EHR to [employer] Deluca Related to Zoster keratitis Zoster keratitis, - pred bid od, Acyclovir 400mg bid ( at least for now due to skin dry lesions ); rtc 1 month. 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 RTC 4-6 weeks check IOP. 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 recommend use of PFAT's. rtc reassess 1 weeks. 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 rtc reassess 2 weeks. 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 Mild decrease in VA. Eye is relatively quiet, however. Discussed diagnosis in detail with patient. Pt to continue current oral anti-viral. Pt given sample of PFAT's to use PRN. 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 Total eye exam Related to Senile Nuclear Cataract - 1 year Related to Senil e Nuclear Cataract - Return PRN Related to Bleph aroconjunctivitis - Pt given sample of Zylet to use tid for 2-3 days Related to Blepharoconjunctivitis Tear Film Insuffic N os, OU - Discussed diagnosis in detail with patient. Discussed treatment options with patient. Remain on the current plan and call with worsening. Sample of bepreve given to use bid. Return 3-4 mo Related to Tear Film Insuffic Nos - 3-4 mo kellee ck Related to Tear Film Insuffic Nos Tear Film Insuffic N os, OU - Discussed diagnosis in detail and treatment options with patient. Using Restasis bid is what is necessary to aid in the treatment of the dryness. Pt aware using just qd isn't working well enough for pt and d/c all together would cause [facility] problems. Advised usage of Lotemax bid along with the Restasis bid ou using Lotemax until sample given. Pt given prn fish oil info and sample. Related to Tear Film Insuffic Nos Senile Nuclear Catar act, OU - Cataracts accounts for pt's complaints. No treatment currently recommended, patient will monitor vision changes and contact us with any decrease in vision. Related to Senile Nuclear Cataract - 6 wk dry eye check Related to Tear Film Insuffic Nos Myopia, OU - mrx given. Related to Myopia Choroidal Nevus, OU - photo obtained today. Related to Choroidal Nevus - prn Related to Tear Film Insuffic Nos Tear Film Insuffic N os, OU - Lengthly discussion with pt as to what to expect with dry eyes, pt will continue with current treatment. Pt will follow up when ready, te one year otherwise. Pt wanted no plugs today. Related to Tear Film Insuffic Nos - get photo at time of plugs. Re lated to Choroidal Nevus Choroidal Nevus, OU - Discussed diagnosis in detail with patient. Discussed treatment options with patient. Advised patient of condition. some change in dd measurement compared with dr gallegos but no symptoms no architecture change. observe and photograph today. Related to Choroidal Nevus Dry Eye Syndrome, OU - Pt needs punctal plugs, will plan for that. Pt needs to take fish oil on a daily basis, rx strength, explained that glands are completely blocked. Pt will use Systane balance, samples given as well as Restasis bid as well with the hot packs. Azasite rx will also be used on lid margins. Pt will try for 3 months and see how this works. Related to Dry Eye Syndrome - punctal plugs ou Related to Dr whitten Eye Syndrome Senile Nuclear Catar act, OU - Discussed diagnosis in detail with patient. No treatment is required at this time. Related to Senile Nuclear Cataract Myopia, OU - mrx if desired Rela anuel to Myopia - 1 year TE Related to Catar act, Nuclear Sclerosis Choroidal Nevus, OU. Unchanged from previous photos, 06/22/05. - Discussed diagnosis with patient. Will continue to monitor condition. 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 Mild. - Discussed cataract diagnosis with the patient. Will continue to observe condition and symptoms. Related to Cataract, Nuclear Sclerosis Assessments Type Assessment Date No Information Patient Care Teams Name Effective Dates (start - stop) Status Members No Information
[2025-06-18 15:45] VITALS: BP 158/100; PULSE 84; RESP 14; TEMP 37.1; O2SAT 100; BMI 21.4
--- NOTE | 2025-06-18 15:52 | XRR_ITS ---
PROCEDURE INFORMATION: Exam: XR Right Hip Exam date and time: 06/18/2025 3:55 PM Age: 80 years old Clinical indication: Injury or trauma; Fall; Blunt trauma (contusions or hematomas); Right; Hip; Additional info: Fall, hip pain/deformity TECHNIQUE: Imaging protocol: Radiologic exam of the right hip. Views: 1 view hip with pelvis when performed. COMPARISON: COMPARISON MORE: CR XR hip LT 2-3V wo/w pel* [id number] 05/28/2025 9:02 AM COMPARISON MORE: CR (PELVIS, ) 04/28/2025 6:42 PM FINDINGS: Bones/joints: Bones are demineralized. Comminuted and displaced intertrochanteric fracture involving the proximal right femur. Femoral head remains normally positioned within the acetabulum. No dislocation. Symphysis pubis is normally aligned. Superior and inferior pubic rami are intact. Subtle lucency along the inferior pubic ramus on the right more likely corresponds to overlapping densities. No displaced fracture involving the right or left inferior pubic ramus. Postsurgical changes are present from prior fixation of an intertrochanteric fracture involving the proximal left femur. Medullary nail and dynamic screw in place on the left. SI joints appear symmetric. Visualized sacral ala are intact. Levoscoliosis involving the lower lumbar spine. Multilevel degenerative changes are present within the lower lumbar spine. Soft tissues: Mild soft tissue swelling superficial to the proximal right femur. Vasculature: Arterial vascular calcifications are present within the lower abdominal aorta and involving the iliac arteries. XR/XR hip RT 2-3V wo/w pel* [id number] IMPRESSION: Comminuted and displaced intertrochanteric fracture involving the proximal right femur. Overlying soft tissue swelling. Orthopedic consultation is recommended.
--- OUTSIDE RECORDS SUMMARY | 2025-06-18 15:52 | XMS_ITS | Data Portability ---
Author Organization [facility] Mami Nur, [facility] Address [address] [address] Assessment No assessment recorded. Plan of Treatment Reminders Order Date Submit Date Provider Last Modified By Organization Details Last Modified Time Details Appointments None record ed. Lab None record ed. Referral None record ed. Procedures None record ed. Surgeries None record ed. Imaging None record ed. Medication Orders None record ed. Patient TargetsNo targets recorded. Patient Instructions Encounter Date Encounter Id Patient Instructions Last Modified By Organization Details Last Modified Time 05/03/2025 [id number] Fall resulted in hip fracture, requiring surgical intervention. Post op hemoglobin 7, requiring transfusion. Agree to stay off thinner with anemia. Will d/c iron. Labs on Saturday. Start oxy 5 q 6 hours prn. [email or web address] Not available 05/03/2025 17:59:04 06/14/2025 [id number] Doing well, recent fall without injury. No new orders. [email or web address] Not available 06/14/2025 15:21:05 Reason for Referral None Reported. Problems Name Problem SNOMED Code Status Onset Date Resolution Date Notes Provider Name and Address Organization Details Recorded Time History of malignant neoplasm of breast 423266853 Active 2018 HISTORY OF BREAST CANCER; 10/15/19 19 2:08PM by Cira Salmon CMT, Office Visit; Promoted ; acuity set as *; [facility] Post-discha rge follow-up 833992440 Active [address] [facility] Closed fracture of hip 791594839 Active [address] [facility] 10:55:37 Dementia 42410145 [facility]:55:[facility] Anemia 312348337 Active 2024 [facility] 10:55:37 Problem Notes None recorded. Medical Equipment None Reported. Allergies Allergen ID Allergen Name Allergen Category Reaction Reaction Severity Criticality Documentation Date Start Date Code Code System Note Provider Name and Address Organization Details Recorded Time 06280 ibuprofen medicatio n Not available Not available Not available 03/09/2023 5640 RxNorm Comme nt: Recor ded 10/14 2:09P M by Andra olguin CMT, Offic e Visit ; Promo anuel; Osmini segun ce: *; Reaso n: Drug aller gy; ; [facility] 5 10:55:37 03937 morphine sulfate medicatio n Not available Not available Not available 03/09/2023 31747 RxNorm Comme nt: Recor ded 10/14 2:08P M by Andra olguin CMT, Offic e Visit ; Promo anuel; Jorge cast ce: *; Reaso n: Drug aller gy; ; [facility] 5 10:55:37 35914 Bactrim medicatio n Not available Not available Not available 03/09/2023 94642 9 RxNorm Comme nt: Recor ded 10/14 2:08P M by Andra olguin CMT, Offic e Visit ; Promo anuel; Signi segun ce: *; Reaso n: Drug aller gy; ; [facility] 5 10:55:37 82591 tramadol hydrochlo ride medicatio n Not available Not available Not available 03/09/2023 [id number] RxNorm Comme nt: Recor ded 10/14 2:08P M by Andra olguin CMT, Offic e Visit ; Pretty agee; Jorge cast ce: *; Reaso n: Drug aller gy; ; MARILYN WE[facility] 5 10:55:37 Medications Name Sig Start Date Stop Date Status Note LastModified by Organization Details LastModified Time Augmentin 875 mg-125 mg tablet two times daily [address] Alfie ARNOLD; Recorded 10/15/19 2:48PM by KADIE Burleson, Office Visit; Refill Quantity : 0; Not Available Not Available Not Available olanzapin e 2.5 mg tablet TAKE 1 TABLET BY MOUTH TWICE DAILY NEEDED FOR DELIRUIM active Not Available Not Available No t Available Medrol 4 mg tablet use as directed per instruct ions in pack [address] Alfie ARNOLD; Recorded 10/15/19 2:47PM by KADIE Burleson, Office Visit; Refill Quantity : 0; Not Available Not Available Not Available amoxicill in 400 mg-potass ium clavulana te 57 mg/5 mL oral suspensio n TAKE 10 ML BY MOUTH EVERY 12 HOURS FOR 14 DAYS. (DISCARD REMAINDE R AFTER 10 DAYS AND THEN GET THE REFILL) active Not Available Not Available No t Available linezolid 600 mg tablet TAKE 1 TABLET BY MOUTH TWICE DAILY 05/03 completed Not Available Not Available Not Available ondansetr on 4 mg disintegr ating tablet DISSOLVE 1 TABLET IN MOUTH EVERY 6 HOURS NEEDED FOR NAUSEA active Not Available Not Available No t Available olanzapin e 5 mg disintegr ating tablet PLACE 1 TABLET INSIDE CHEEK TWICE DAILY NEEDED FOR DELIRIUM active Not Available Not Available No t Available Vitamin C daily active 0; Recorded 10/15/19 2:10PM by Cira Salmon CMT, Office Visit; Not Available Not Available Not Available aspirin daily active 0; Recorded 10/15/19 2:09PM by Cira Salmon CMT, Office Visit; Not Available Not Available Not Available vitamin E daily active 0; Recorded 10/15/19 2:10PM by Cira Salmon CMT, Office Visit; Not Available Not Available Not Available garlic daily active 0; Recorded 10/15/19 2:10PM by Cira Salmon CMT, Office Visit; Not Available Not Available Not Available Vitamin D daily active 0; Recorded 10/15/19 2:10PM by Cira Salmon CMT, Office Visit; Not Available Not Available Not Available Multivita mins daily active 0; Recorded 10/15/19 2:11PM by Cira Salmon CMT, Office Visit; Not Available Not Available Not Available ProAir HFA 90 mcg/actua tion aerosol inhaler every 6 hours as needed 2018 active please dispense a spacer too Dr. Judge DOC; Recorded 10/15/19 2:49PM by KADIE Burleson, Office Visit; Refill Quantity : 0; Not Available Not Available Not Available Vitals Date Recorded Body weight Heart rate Respiratory rate Body temperature Oxygen saturation Oxygen saturation in Arterial blood by Pulse oximetry Systolic And Diastolic Provider Name and Address Organization Details Last Updated DateTime 5 49553.2 8 g 83 /min 17 /min 98.4 [degF] 97 % 97 % 151/77 mm[Hg] [facility] 5 17:55:49 Date Recorded Body weight Heart rate Respiratory rate Body temperature Oxygen saturation Oxygen saturation in Arterial blood by Pulse oximetry Systolic And Diastolic Provider Name and Address Organization Details Last Updated DateTime 5 11038.5 g 72 /min 16 /min 97.6 [degF] 95 % 95 % 112/68 mm[Hg] [facility] 5 15:19:08 Social History None recorded. Functional Status None recorded. Mental Status None recorded. Family History Nothing Reported. Medical History No medical history recorded. Gynecological HistoryNo gynecological history recorded. Obstetrics History GPAL:G 0 P 0 0 0 0 Immunizations Vaccine Type Date Status Note Provider Nam e and Address Organization Details Recorded Time Influenza, split virus, trivalent, preservative 3 completed Not Available [facility] 06/14/2025 12:47:26 zoster live 3 completed Not Available [facility] 06/14/2025 12:47:26 Influenza, split virus, trivalent, preservative 4 completed Not Available [facility] 06/14/2025 12:47:26 Influenza, split virus, trivalent, PF 5 completed Not Available [facility] 06/14/2025 12:47:26 Influenza, high-dose, trivalent, PF 6 completed Not Available [facility] 06/14/2025 12:47:26 Influenza, high-dose, trivalent, PF 7 completed Not Available [facility] 06/14/2025 12:47:26 Influenza, high-dose, trivalent, PF 8 completed Not Available [facility] 06/14/2025 12:47:26 Influenza, adjuvanted, trivalent, PF 9 completed Not Available [facility] 06/14/2025 12:47:26 COVID-19, mRNA, LNP-S, PF, 30 mcg/0.3 mL dose 1 completed Not Available [facility] 06/14/2025 12:47:26 COVID-19, mRNA, LNP-S, PF, 30 mcg/0.3 mL dose 1 completed Not Available [facility] 06/14/2025 12:47:26 Influenza, split virus, trivalent, preservative 1 completed Not Available [facility] 06/14/2025 12:47:26 COVID-19, mRNA, LNP-S, PF, 30 mcg/0.3 mL dose 1 completed Not Available [facility] 06/14/2025 12:47:26 Influenza, adjuvanted, quadrivalent, PF 2 completed Not Available [facility] 06/14/2025 12:47:26 Influenza, split virus, trivalent, preservative [address] [facility], [facility] 05/04/2025 10:55:37 Past Encounters Encounter ID Performer Location Encounter Start Date Encounter Closed Date Diagnosis/Indication Diagnosis SNOMED-CT Code Diagnosis ICD10 Code Diagnosis IMO Codes Diagnosis Note [id number] Apollo DO Tory [facility] [address] [place] [address] 05/03/2025 15:37:47 05/05/2025 09:08:20 Post-discharge follow-up 009708759 Z09 100970 Closed fra cture of hip 534614989 S72.001S 2776684 Dementia 76172701 F03.90 8498333375 Anemia 135583262 D64.9 71474694 [id number] Apollo Spears DO [facility] ([facility]) [address] [place] [address] 06/14/2025 12:47:12 2025 15:56:29 Dementia 23961697 F03.90 3449800293 Anemia 347982551 D64.9 98482341 Closed fra cture of hip 703215620 S72.001S 7410272 History of malignant neoplasm of breast 407333466 Z85.3 Health Concerns Section Related Observation LastModified by Organization Detai ls LastModified Time None Recorded Concern Status LastModified by Organization Details LastModified Time None Recorded Advance Directives Directive None Recorded Payers Insurance Date Sequence Insurance Name Policy Number Policy Costello Covered Member ID Costello Member ID Guarantor Name 06/14/2025 [place] - [facility] (MEDICARE) Fior Mead [id number] Fior Mead 06/14/2025 1 [place]IC[place]: S Fior Mead [id number] Fior Mead 05/21/2025 2 UNSPECIFIED REMIT PAYOR Fior Mead Notes Date Note Type Note Provider Name and Address Organization Details Recorded Time 05/03/2025 text/html DementiaReported by PatientHPIFor quality, patient reportsshort term memory loss. For severity, patient reportsmoderate. For duration, patient reports___ years.ROS as noted in the HPI new admit to snf, after hip fracture. Apollo Spears DO [address] [place] [address], [id number], [facility] 05/04/2025 09:02:03 06/14/2025 text/html DementiaReported by PatientHPIFor quality, patient reportsshort term memory loss. For severity, patient reportsmoderate. For duration, patient reports___ years.ROS as noted in the HPI no complaints per staff or patient. Apollo Spears, [address], [address], [facility] 06/16/2025 15:27:14 OBGyn Episode No OBEpisode recorded.
--- OUTSIDE RECORDS SUMMARY | 2025-06-18 15:53 | XMS_ITS | Clinical Summary ---
Author Organization [facility] Address [address] [place]: Epic Prelude ADT [place] [address] Care Team Providers Care Park Landscape Architect Name Role Phone Ele Mckeon Primary Care Provider [phone] Allergies Active Allergy Reactions Criticality Noted Date Comments Morphine Unknown 12/17/2024 Tramadol Nausea and Vomiting,Weakness Low 025 Medications mirtazapine (REMERON) 7.5 mg tablet Take 1 Tablet (7.5 mg) by mouth daily at bedtime. 30 Tablet 12/03/2024 3:58 PM CDT Active Additional Information Patient not taking.Reported on 12/10/2024 OLANZapine (ZyPREXA ZYDIS) 5 mg Tablet, Rapid DissolveIndicati ons:Alzheimer dementia with behavioral disturbance (CMS/HCC) Place 1 Tablet (5 mg) inside cheek 2 times daily as needed for Delirium. 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 11/29/2024 Cellulitis of left breast 11/28/2024 Ruptured left breast implant 11/28/2024 Protein-calorie malnutrition, moderate Encounters Date Type Department Care Team Description 04/27/2025 External Device Data STL ABSTRACTION Provider, Abstract from Last 3 Months Social History Tobacco Use Types Packs/Day Years Used Date Smoking Tobacco: Former Cigarettes 0.5 25 Smokeless Tobacco: Never Tobacco Cessation:Counseling Given: Not Answered Alcohol Use Standard Drinks/Week Comments Not Currently 0 (1 standard drink = 0.6 oz pur e alcohol) Food Insecurity Answer Date Recorded Do you find you are eating l ess than you should because you can t pay for food? No 11/30/2024 Transportation Needs Answer Date Record ed Have you gone without health care because you didn t have a way to get there? Or worry about transportation for future doctor visits, sweet pickle maker medication, etc.? No 2024 Housing Stability Answer Date Recorded Do you worry you won t have a steady place to sleep or struggle to pay rent or mortgage? No 11/30/2024 Utility Needs Answer Date Recorded Do you have difficulty payin g for utility costs (electric, water or gas bills)? No 11/30/2024 Medication Needs Answer Date Recorded Have you skipped taking medi cation due to cost or worry you can t afford new medications? Yes 11/30/2024 Feeling Safe Answer Date Recorded Are you in a relationship wi th someone who hurts you emotionally and/or physically? 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 Gender Identity Not on file Sexual Orientation Not on file Last Filed Vital Signs Vital Sign Reading Time Taken Comments Blood Pressure 163/89 12/31/2024 1:08 PM CDT Pulse 71 12/31/2024 9:44 AM CDT Temperature 36.4 C (97.5 F) 12/31/2024 9:44 AM CDT Respiratory Rate 16 12/31/2024 1:08 PM CDT Oxygen Saturation 100% 12/31/2024 1:08 PM CDT Inhaled Oxygen Concentration - - Weight 43.6 kg (96 lb 3.2 oz) 12/31/2024 9:44 AM CDT Height 152.4 cm (5') 12/31/2024 9:44 AM CDT Body Mass Index 18.79 12/31/2024 9:44 AM CDT Plan of Treatment Health Maintenance Due Date Last Done Comments DTAP/TDAP/TD VACCINES (1 - Tdap) 1964 PNEUMOCOCCAL VACCINE 50+ YEARS (1 of 1 - PCV) 06/17/19 95 ZOSTER VACCINE (1 of 2) 1995 OSTEOPOROSIS SCREENING 2010 RSV VACCINE (60+ or ) (1 - 1-dose 75+ series) 2020 INFLUENZA VACCINE (#1) 2025 05/28/2022 Insurance MEDICARE PART A AND [facility] [employer] Medicare Part D Advance Directives For more information, please contact: [phone] * NO CPR (In Event of Cardiopulmonary Arrest) (Latest Code Status on File) Date Activated Date Inactivated Comments 11/30/2024 10:12 AM 12/03/2024 6:14 PM Question Answer Comments Mechanical Ventilation (for respiratory distress) - Invasive (i.e. intubation): No Mechanical Ventilation (for respiratory distress) - Non-Invasive (i.e. BiPAP, CPAP): Yes * Full Code Date Activated Date Inactivated Comments 11/28/2024 5:00 PM 11/30/2024 10:12 AM Care Teams Park Landscape Architect Relationship Specialty Start Date End Date Ele Mckeon DO [address] [place] [address] PCP - General Family Practice 12/09/24
--- OUTSIDE RECORDS SUMMARY | 2025-06-18 15:53 | XMS_ITS | Continuity of Care Document ---
Author Organization [facility] Mami Nur, [facility]) Address [address] [place] [address] Assessment No assessment recorded. Plan of Treatment [...] Modified By Organization Details Last Modified Time 06/14/2025 [id number] Doing well, recent fall without injury. No new orders. [email or web address] Not available 06/14/2025 15:21:05 Reason for Referral None Reported. Problems Name Problem SNOMED Code Status Onset Date Resolution Date Notes Provider Name and Address Organization Details Recorded Time History of malignant neoplasm of breast 540060926 Active 2018 [facility] BREAST CANCER; 10/15/19 19 2:08PM by Cira Salmon CMT, Office Visit; Promoted ; acuity set as *; [facility] 10:55:37 Post-discha rge follow-up 680747313 Active 2024 [facility] 10:55:37 Closed fracture of hip 257862122 Active 2024 [facility] 10:55:37 Dementia 08275640 Active 2024 [facility] 10:[facility] Anemia 679159868 [facility] 5 10:55:37 Problem Notes None recorded. Medical Equipment None Reported. Allergies Allergen ID Allergen Name Allergen Category Reaction Reaction Severity Criticality Documentation Date Start Date Code Code System Note Provider Name and Address Organization Details Recorded Time 77227 ibuprofen medicatio n Not available Not available Not available 03/09/2023 5640 RxNorm Comme nt: Recor ded 10/14 2:09P M by Andra olguin CMT, Offic e Visit ; Promo anuel; Signi fican ce: *; Reaso n: Drug aller gy; ; [facility] 5 10:55:37 92929 morphine sulfate medicatio n Not available Not available Not available 03/09/2023 68433 RxNorm Comme nt: Recor ded 10/14 2:08P M by Andra olguin CMT, Offic e Visit ; Promo anuel; Signi ficjanie ce: *; Reaso n: Drug aller gy; ; [facility] 10:55:37 87155 Bactrim medicatio n Not available Not available Not available 03/09/2023 74953 9 RxNorm Comme nt: Recor ded 10/14 2:08P M by Andra olguin CMT, Offic e Visit ; Promo anuel; Signi fican ce: *; Reaso n: Drug aller gy; ; [facility] 5 10:55:37 21578 tramadol hydrochlo ride medicatio n Not available Not available Not available 03/09/2023 98506 RxNorm Comme nt: Recor ded 10/14 2:08P M by Andra olguin CMT, Offic e Visit ; Promo anuel; Signi fican ce: *; Reaso n: Drug aller gy; ; MARILYNLIGIA WELLER [facility] 10:55:37 Medications Name Sig Start Date Stop [...] Address Organization Details Last Updated DateTime 5 10067.5 g 72 /min 16 /min 97.6 [degF] 95 % 95 % 112/68 mm[Hg] BRADEN HOWELL [facility], [facility] 5 15:19:08 Social History None recorded. Functional Status None recorded. Mental Status None recorded. Family History Nothing Reported. Medical History No medical history recorded. Gynecological HistoryNo gynecological history recorded. Obstetrics History GPAL:G 0 P 0 0 0 0 Immunizations Vaccine Type Date Status Note Provider Nam e and Address Organization Details Recorded Time Influenza, split virus, trivalent, preservative 3 completed Not Available [facility] 06/14/2025 12:47:26 zoster live 3 completed Not Available [facility] 06/14/2025 12:47:26 Influenza, split virus, trivalent, preservative 4 completed Not Available [facility] 06/14/2025 12:47:26 Influenza, split virus, trivalent, PF 5 completed Not Available [facility] 06/14/2025 12:47:26 Influenza, high-dose, trivalent, PF 6 completed Not Available [facility] 06/14/2025 12:47:26 Influenza, high-dose, trivalent, PF 7 completed Not Available [facility] 06/14/2025 12:47:26 Influenza, high-dose, trivalent, PF 8 completed Not Available [facility] 06/14/2025 12:47:26 Influenza, adjuvanted, trivalent, PF 9 completed Not Available [facility] 06/14/2025 12:47:26 COVID-19, mRNA, LNP-S, PF, 30 mcg/0.3 mL dose 1 completed Not Available [facility] 06/14/2025 12:47:26 COVID-19, mRNA, LNP-S, PF, 30 mcg/0.3 mL dose 1 completed Not Available [facility] 06/14/2025 12:47:26 Influenza, split virus, trivalent, preservative 1 completed Not Available [facility] 06/14/2025 12:47:26 COVID-19, mRNA, LNP-S, PF, 30 mcg/0.3 mL dose 1 completed Not Available [facility] 06/14/2025 12:47:26 Influenza, adjuvanted, quadrivalent, PF 2 completed Not Available [facility] 06/14/2025 12:47:26 Influenza, split virus, trivalent, preservative 5 completed MARILYN WELLER [facility] 05/04/2025 10:55:37 Past Encounters Encounter ID Performer Location Encounter Start Date Encounter Closed Date Diagnosis/Indication Diagnosis SNOMED-CT Code Diagnosis ICD10 Code Diagnosis IMO Codes Diagnosis Note [id number] Apollo Spears DO [facility] [address] [place] [address] 06/14/2025 12:47:12 2025 15:56:29 Dementia 20014445 F03.90 3932610542 Anemia 973027749 D64.9 76992345 Closed fra cture of hip 397568571 S72.001S 3299161 History of malignant neoplasm of breast 768122753 Z85.3 Health Concerns Section Related Observation LastModified by Organization Detai ls LastModified Time None Recorded Concern Status LastModified by Organization Details LastModified Time None Recorded Payers Encounter Date Sequence Insurance Name Policy Number Policy Costello Covered Member ID Costello Member ID Guarantor Name 06/14/2025 1 [place]ICARE [place]: [place] Fior Mead [id number] Fior Mead Notes Date Note Type Note Provider Name and Address Organization Details Recorded Time 06/14/2025 text/html DementiaReported by PatientHPIFor quality, patient reportsshort term memory loss. For severity, patient reportsmoderate. For duration, patient reports___ years.ROS as noted in the HPI no complaints per staff or patient. Apollo Spears, DO [address] [place] [address], [phone], [facility] 06/16/2025 15:27:14 OBGyn Episode No OBEpisode recorded.
--- OUTSIDE RECORDS SUMMARY | 2025-06-18 15:53 | XMS_ITS ---
Author Organization Unknown [facility]REATMENT PLAN Planned [facility] Start Date Provider Encounter for Check-up [id number] Sacha boothe [facility]
--- OUTSIDE RECORDS SUMMARY | 2025-06-18 15:53 | XMS_ITS | Continuity of Care Document ---
Author Organization [employer] ([facility]) Address [address] [place] [address] Insurance Providers Payer Plan Claims Address Claims Phone Policy Number Group Number Relation Employer Guarantor Name Guarantor Guarantor Address Guarantor Phone [employer] [id number] Self Fior Mead [address] [place] [id number] [employer] [place] [employer] [place] [id number] [phone] Self Fior Mead [address] [place] [id number] Problems Condition ICD9 code ICD10 code SNOMED code Start Date End Date S tatus Displaced intertrochanteric fracture of left femur, subsequent encounter for closed fracture with routine healing S72.142D 05/01/2025 Active Do not resuscitate Z66 05/01/2025 Ac tive History of falling Z91.81 05/01/2025 Ac tive Unvaccinated for COVID-19 Z28.310 05/01/2025 Active Unspecified dementia without behavioral disturbance F03.90 05/01/2025 Active Acquired absence of unspecified breast and nipple Z90.10 05/01/2025 Active Anemia, unspecified D64.9 05/01/2025 A ctive Muscle weakness (generalized) M62.81 05/04/2025 Active Unspecified protein-calorie malnutrition E46 05/13/2025 Active Results Test Result Date/Time Value / Unit Interp. Refere nce Range Tuberculosis reaction wheal[ 40324-4] Tuberculosis reaction wheal [43095-8] 05/09/2025 02:23 PM 0 mm NEG Tuberculosis reaction wheal[ 04717-2] Tuberculosis reaction wheal [05461-7] 05/09/2025 02:23 PM See note TB test Tuberculosis reaction wheal[ 42523-1] Tuberculosis reaction wheal [56592-0] 05/01/2025 10:00 AM 0 mm NEG Allergies, adverse reactions, alerts Substance Reaction Date Status Type ibuprofen 04/30/2025 Non Drug Morphine Sulfate (MS) 04/30/2025 Non Drug tramadol 04/30/2025 Non Drug Sulfonamides (Sulfa) 04/30/2025 Non Drug Immunizations Vaccine Route Date Status COVID-19 Vaccine Unassigned Route of Administration Refused RSV Vaccine Unassigned Route of Administration 2024 Completed COVID-19 Vaccine Unassigned Route of Administration Completed COVID-19 Vaccine Unassigned Route of Administration Completed COVID-19 Vaccine Unassigned Route of Administration Completed Pneumococcal Vaccine Unassigned Route of Administratio n 05/11/2025 Refused Influenza Vaccine Unassigned Route of Administration 1 Refused Medications Medication Instructions Route Dosage Frequency Start Date Stop Date Indications Status Calcium with Vitamin D (calcium carbonate-vitam in d3) 600 mg-10 mcg (400 unit) tablet (Calcium with Vitamin D (calcium carbonate-vitam in d3)) 1 tab, oral, Twice A Day, per TI oral 1.0 12.0 h 2024 Active Dulcolax (bisacodyl) (bisacodyl) 5 mg tablet,delayed release (DR/EC) (Dulcolax (bisacodyl) (bisacodyl)) 2 tabs/10mg, oral, Once A Day - PRN, Give if no results from MOM oral 1.0 1.0 d 2024 Active Dulcolax (bisacodyl) (bisacodyl) 10 mg suppository (Dulcolax (bisacodyl) (bisacodyl)) 1 suppository, rectal, Once A Day - PRN, Give rectally if can't take p/o, if no results from MOM rectal 1.0 1.0 d 2024 Active ferrous sulfate 325 mg (65 mg iron) tablet (ferrous sulfate) 1 tab, oral, Once A Day Every Other Day, TI for ferrex 150 oral 1.0 1.0 d 05/03 Active Fleet Enema (sodium phosphates) 19-7 gram/118 mL enema (Fleet Enema (sodium phosphates)) 1 application, rectal, Once A Day - PRN, Give fleets if no results from MOM and Dulcolax rectal 1.0 1.0 d 2024 Active Milk of Magnesia (magnesium hydroxide) 400 mg/5 mL suspension (Milk of Magnesia (magnesium hydroxide)) 30 ml, oral, Every 72 Hours - PRN, if no BM in 3 daysDO NOT GIVE TO RENAL PATIENTS--GO TO DULCOLAX ORDERS oral 1.0 72.0 h 2024 Active Tylenol (acetaminophen) 325 mg tablet (Tylenol (acetaminophen) ) 2 tabs/650mg, oral, Every 6 Hours - PRN, as needed for PRN pain/increase d tempMay give rectally if necessary oral 1.0 6.0 h 2024 Active Tubersol (tuberculin ppd) 5 tub. unit /0.1 mL solution (Tubersol (tuberculin ppd)) 0.1ml, intradermal, Once - One Time, Administer the morning after admission intraderma l 1.0 05/01 Active oxycodone 5 mg tablet (oxycodone) 1, oral, Every 6 Hours - PRN, Clinical Indication: Pain oral 1.0 6.0 h 2024 Active Arexvy (PF) (rsvpref3 antigen-as01e (pf)) 120 mcg/0.5 mL suspension for reconstitution (Arexvy (PF) (rsvpref3 antigen-as01e (pf))) 0.5ml, intramuscular , Once - One Time intramuscu lar 1.0 05/05 Active oxycodone 5 mg capsule (oxycodone) 1 tab, oral, Once - One Time oral 1.0 05/06 Active oxycodone 5 mg tablet (oxycodone) 1 tab, oral, Once - One Time - PRN oral 1.0 05/06 Active oxycodone 5 mg tablet (oxycodone) 1 tab, oral, Once - One Time - PRN oral 1.0 05/07 Active Tubersol (tuberculin ppd) 5 tub. unit /0.1 mL solution (Tubersol (tuberculin ppd)) 0.1ml, intradermal, Once - One Time, Administer on the day shift intraderma l 1.0 05/09 Active Ativan (lorazepam) 0.5 mg tablet (Ativan (lorazepam)) 1, oral, Once - One Time, Take 30 min prior to staple remover oral 1.0 05/14 Active lorazepam 0.5 mg tablet (lorazepam) 0.5 mg, oral, Once - One Time oral 1.0 05/13 Active Ativan (lorazepam) 0.5 mg tablet (Ativan (lorazepam)) 1 tablet, oral, Twice A Day - PRN oral 1.0 12.0 h 06/02 Active Ativan (lorazepam) 0.5 mg tablet (Ativan (lorazepam)) 1 tablet, oral, Every 6 Hours - PRN oral 1.0 6.0 h 05/28 Active Vital Signs Date Vital Result Comment 05/01/2025 11:22 PM Temperature (8310-5) 99.1 [degF] Oxygen Saturation (67068-7) 95 % Respiratory Rate (9279-1) 19 /min Heart Rate (8867-4) 94 /min Blood Pressure Systolic (8480-6) 97 mm[Hg] Blood Pressure Diastolic (8462-4) 74 mm[Hg] 05/02/2025 01:06 PM Temperature (8310-5) 98 [degF] Oxygen Saturation (15816-9) 98 % Respiratory Rate (9279-1) 18 /min Heart Rate (8867-4) 65 /min Blood Pressure Systolic (8480-6) 132 mm[Hg] Blood Pressure Diastolic (8462-4) 74 mm[Hg] 05/02/2025 08:52 PM Temperature (8310-5) 98.1 [degF] Oxygen Saturation (26367-7) 99 % Respiratory Rate (9279-1) 16 /min Heart Rate (8867-4) 72 /min Blood Pressure Systolic (8480-6) 127 mm[Hg] Blood Pressure Diastolic (8462-4) 63 mm[Hg] 05/03/2025 09:40 AM Temperature (8310-5) 98.4 [degF] Oxygen Saturation (73684-9) 97 % Respiratory Rate (9279-1) 17 /min Heart Rate (8867-4) 83 /min Blood Pressure Systolic (8480-6) 151 mm[Hg] Blood Pressure Diastolic (8462-4) 77 mm[Hg] 05/03/2025 04:19 PM Body Height (8302-2) 60 [in_us] 05/03/2025 01:37 PM Body Weight (71056-3) 95.8 [lb_av] Body Mass Index (16407-8) 18.71 kg/m2 05/04/2025 08:26 AM Temperature (8310-5) 97.8 [degF] Respiratory Rate (9279-1) 18 /min Heart Rate (8867-4) 74 /min Blood Pressure Systolic (8480-6) 134 mm[Hg] Blood Pressure Diastolic (8462-4) 78 mm[Hg] 05/04/2025 02:46 AM Temperature (8310-5) 97.2 [degF] Oxygen Saturation (13813-6) 96 % Respiratory Rate (9279-1) 20 /min Heart Rate (8867-4) 81 /min Blood Pressure Systolic (8480-6) 148 mm[Hg] Blood Pressure Diastolic (8462-4) 71 mm[Hg] 05/04/2025 08:27 AM Oxygen Saturation (94205-2) 95 % 05/04/2025 07:47 PM Temperature (8310-5) 98 [degF] Oxygen Saturation (68299-0) 93 % Respiratory Rate (9279-1) 18 /min Heart Rate (8867-4) 94 /min Blood Pressure Systolic (8480-6) 126 mm[Hg] Blood Pressure Diastolic (8462-4) 64 mm[Hg] 05/05/2025 09:29 AM Temperature (8310-5) 98 [degF] 05/05/2025 10:11 AM Temperature (8310-5) 98 [degF] Oxygen Saturation (85461-6) 93 % Respiratory Rate (9279-1) 18 /min Heart Rate (8867-4) 94 /min Blood Pressure Systolic (8480-6) 100 mm[Hg] Blood Pressure Diastolic (8462-4) 64 mm[Hg] 05/05/2025 02:54 PM Body Weight (92956-8) 95.6 [lb_av] Body Mass Index (32745-5) 18.67 kg/m2 05/05/2025 06:57 PM Temperature (8310-5) 98.1 [degF] Oxygen Saturation (62233-0) 94 % Respiratory Rate (9279-1) 18 /min Heart Rate (8867-4) 95 /min Blood Pressure Systolic (8480-6) 107 mm[Hg] Blood Pressure Diastolic (8462-4) 65 mm[Hg] 05/06/2025 10:52 AM Temperature (8310-5) 97.8 [degF] Oxygen Saturation (52695-8) 93 % Respiratory Rate (9279-1) 20 /min Heart Rate (8867-4) 73 /min Blood Pressure Systolic (8480-6) 139 mm[Hg] Blood Pressure Diastolic (8462-4) 67 mm[Hg] 05/06/2025 06:37 PM Temperature (8310-5) 98.1 [degF] Oxygen Saturation (17981-9) 93 % Respiratory Rate (9279-1) 18 /min Heart Rate (8867-4) 86 /min Blood Pressure Systolic (8480-6) 118 mm[Hg] Blood Pressure Diastolic (8462-4) 68 mm[Hg] 05/07/2025 03:23 PM Temperature (8310-5) 97.8 [degF] Oxygen Saturation (16798-2) 93 % Respiratory Rate (9279-1) 17 /min Heart Rate (8867-4) 82 /min Blood Pressure Systolic (8480-6) 127 mm[Hg] Blood Pressure Diastolic (8462-4) 82 mm[Hg] 05/07/2025 09:44 PM Temperature (8310-5) 98.2 [degF] Oxygen Saturation (77493-2) 97 % Respiratory Rate (9279-1) 19 /min Heart Rate (8867-4) 74 /min Blood Pressure Systolic (8480-6) 122 mm[Hg] Blood Pressure Diastolic (8462-4) 82 mm[Hg] 05/08/2025 03:27 PM Temperature (8310-5) 97.9 [degF] Oxygen Saturation (44470-5) 97 % Respiratory Rate (9279-1) 17 /min Heart Rate (8867-4) 79 /min Blood Pressure Systolic (8480-6) 134 mm[Hg] Blood Pressure Diastolic (8462-4) 70 mm[Hg] 05/08/2025 08:23 PM Temperature (8310-5) 98.1 [degF] Oxygen Saturation (88232-3) 97 % Respiratory Rate (9279-1) 22 /min Heart Rate (8867-4) 77 /min Blood Pressure Systolic (8480-6) 121 mm[Hg] Blood Pressure Diastolic (8462-4) 68 mm[Hg] 05/09/2025 08:55 AM Temperature (8310-5) 98.4 [degF] Oxygen Saturation (20456-7) 98 % Respiratory Rate (9279-1) 19 /min Heart Rate (8867-4) 75 /min Blood Pressure Systolic (8480-6) 98 mm[Hg] Blood Pressure Diastolic (8462-4) 54 mm[Hg] 05/10/2025 05:59 AM Temperature (8310-5) 97.8 [degF] Oxygen Saturation (50916-2) 97 % Respiratory Rate (9279-1) 18 /min Heart Rate (8867-4) 79 /min Blood Pressure Systolic (8480-6) 112 mm[Hg] Blood Pressure Diastolic (8462-4) 65 mm[Hg] 05/10/2025 11:14 AM Temperature (8310-5) 97.5 [degF] Oxygen Saturation (43747-9) 97 % Respiratory Rate (9279-1) 20 /min Heart Rate (8867-4) 53 /min Blood Pressure Systolic (8480-6) 116 mm[Hg] Blood Pressure Diastolic (8462-4) 73 mm[Hg] 05/10/2025 06:43 PM Temperature (8310-5) 98.1 [degF] Oxygen Saturation (41696-4) 96 % Respiratory Rate (9279-1) 19 /min Heart Rate (8867-4) 90 /min Blood Pressure Systolic (8480-6) 120 mm[Hg] Blood Pressure Diastolic (8462-4) 79 mm[Hg] 05/11/2025 08:49 AM Temperature (8310-5) 97.4 [degF] Oxygen Saturation (19728-2) 96 % Respiratory Rate (9279-1) 20 /min Heart Rate (8867-4) 77 /min Blood Pressure Systolic (8480-6) 132 mm[Hg] Blood Pressure Diastolic (8462-4) 63 mm[Hg] 05/11/2025 06:55 PM Temperature (8310-5) 97.7 [degF] Oxygen Saturation (81000-0) 93 % Respiratory Rate (9279-1) 18 /min Heart Rate (8867-4) 89 /min Blood Pressure Systolic (8480-6) 110 mm[Hg] Blood Pressure Diastolic (8462-4) 62 mm[Hg] 05/11/2025 06:42 PM Body Height (8302-2) 60 [in_us] 05/12/2025 03:45 PM Body Weight (89363-6) 92.8 [lb_av] Body Mass Index (33854-6) 18.12 kg/m2 05/12/2025 07:59 PM Temperature (8310-5) 97.9 [degF] Respiratory Rate (9279-1) 16 /min Heart Rate (8867-4) 98 /min Blood Pressure Systolic (8480-6) 110 mm[Hg] Blood Pressure Diastolic (8462-4) 57 mm[Hg] 05/12/2025 08:00 PM Oxygen Saturation (76428-1) 92 % 05/12/2025 08:38 PM Temperature (8310-5) 97.9 [degF] Respiratory Rate (9279-1) 16 /min Heart Rate (8867-4) 98 /min 05/12/2025 08:42 PM Temperature (8310-5) 97.6 [degF] Oxygen Saturation (00302-4) 96 % Respiratory Rate (9279-1) 18 /min Heart Rate (8867-4) 65 /min Blood Pressure Systolic (8480-6) 97 mm[Hg] Blood Pressure Diastolic (8462-4) 68 mm[Hg] 05/13/2025 12:23 PM Intravascular systolic (8480-6) 0. 0 mm[hg] Intravascular diastolic (8462-4) 0.0 mm[hg] Temperature (8310-5) 98.6 [degF] Oxygen Saturation (01853-9) 99 % Respiratory Rate (9279-1) 16 /min Heart Rate (8867-4) 92 /min 05/13/2025 09:41 PM Temperature (8310-5) 97.6 [degF] Oxygen Saturation (88213-3) 99 % Respiratory Rate (9279-1) 17 /min Heart Rate (8867-4) 80 /min Blood Pressure Systolic (8480-6) 128 mm[Hg] Blood Pressure Diastolic (8462-4) 73 mm[Hg] 05/14/2025 03:07 PM Temperature (8310-5) 98.1 [degF] Oxygen Saturation (53820-8) 95 % Respiratory Rate (9279-1) 19 /min Heart Rate (8867-4) 76 /min Blood Pressure Systolic (8480-6) 116 mm[Hg] Blood Pressure Diastolic (8462-4) 64 mm[Hg] 05/14/2025 10:40 PM Temperature (8310-5) 98.2 [degF] Oxygen Saturation (71251-5) 96 % Respiratory Rate (9279-1) 21 /min Heart Rate (8867-4) 89 /min Blood Pressure Systolic (8480-6) 127 mm[Hg] Blood Pressure Diastolic (8462-4) 83 mm[Hg] 05/15/2025 09:03 AM Temperature (8310-5) 98.7 [degF] Oxygen Saturation (91110-1) 92 % Respiratory Rate (9279-1) 20 /min Heart Rate (8867-4) 60 /min Blood Pressure Systolic (8480-6) 118 mm[Hg] Blood Pressure Diastolic (8462-4) 62 mm[Hg] 05/16/2025 05:52 AM Temperature (8310-5) 98.1 [degF] Oxygen Saturation (20558-4) 97 % Respiratory Rate (9279-1) 21 /min Heart Rate (8867-4) 104 /min Blood Pressure Systolic (8480-6) 109 mm[Hg] Blood Pressure Diastolic (8462-4) 73 mm[Hg] 05/16/2025 11:10 AM Temperature (8310-5) 97 [degF] Oxygen Saturation (21703-1) 92 % Respiratory Rate (9279-1) 20 /min Heart Rate (8867-4) 77 /min Blood Pressure Systolic (8480-6) 118 mm[Hg] Blood Pressure Diastolic (8462-4) 68 mm[Hg] 05/16/2025 08:19 PM Temperature (8310-5) 98.2 [degF] Oxygen Saturation (71654-8) 95 % Respiratory Rate (9279-1) 17 /min Heart Rate (8867-4) 71 /min Blood Pressure Systolic (8480-6) 109 mm[Hg] Blood Pressure Diastolic (8462-4) 64 mm[Hg] 05/17/2025 03:30 PM Temperature (8310-5) 98 [degF] Oxygen Saturation (68041-1) 95 % Respiratory Rate (9279-1) 16 /min Heart Rate (8867-4) 68 /min Blood Pressure Systolic (8480-6) 100 mm[Hg] Blood Pressure Diastolic (8462-4) 69 mm[Hg] 05/17/2025 08:37 PM Temperature (8310-5) 97.5 [degF] Oxygen Saturation (33016-5) 95 % Respiratory Rate (9279-1) 18 /min Heart Rate (8867-4) 66 /min Blood Pressure Systolic (8480-6) 98 mm[Hg] Blood Pressure Diastolic (8462-4) 66 mm[Hg] 05/18/2025 06:34 PM Temperature (8310-5) 98.2 [degF] Oxygen Saturation (17799-1) 97 % Respiratory Rate (9279-1) 18 /min Heart Rate (8867-4) 77 /min Blood Pressure Systolic (8480-6) 124 mm[Hg] Blood Pressure Diastolic (8462-4) 68 mm[Hg] 05/19/2025 08:05 AM Temperature (8310-5) 97.8 [degF] Oxygen Saturation (61237-7) 93 % Respiratory Rate (9279-1) 12 /min Heart Rate (8867-4) 65 /min Blood Pressure Systolic (8480-6) 123 mm[Hg] Blood Pressure Diastolic (8462-4) 65 mm[Hg] 05/19/2025 07:43 AM Temperature (8310-5) 97.8 [degF] Oxygen Saturation (89870-6) 93 % Respiratory Rate (9279-1) 12 /min Heart Rate (8867-4) 65 /min Blood Pressure Systolic (8480-6) 123 mm[Hg] Blood Pressure Diastolic (8462-4) 65 mm[Hg] 05/19/2025 02:17 PM Body Weight (14331-0) 92.8 [lb_av] Body Mass Index (86111-1) 18.12 kg/m2 05/19/2025 06:55 PM Temperature (8310-5) 97.9 [degF] Oxygen Saturation (93318-6) 96 % Respiratory Rate (9279-1) 18 /min Heart Rate (8867-4) 86 /min Blood Pressure Systolic (8480-6) 116 mm[Hg] Blood Pressure Diastolic (8462-4) 68 mm[Hg] 05/20/2025 04:12 PM Temperature (8310-5) 97.7 [degF] Oxygen Saturation (55110-5) 97 % Respiratory Rate (9279-1) 17 /min Heart Rate (8867-4) 82 /min Blood Pressure Systolic (8480-6) 124 mm[Hg] Blood Pressure Diastolic (8462-4) 70 mm[Hg] 05/20/2025 07:03 PM Temperature (8310-5) 98 [degF] Oxygen Saturation (51005-1) 98 % Respiratory Rate (9279-1) 18 /min Heart Rate (8867-4) 78 /min Blood Pressure Systolic (8480-6) 116 mm[Hg] Blood Pressure Diastolic (8462-4) 64 mm[Hg] 05/21/2025 09:34 PM Temperature (8310-5) 97.8 [degF] Oxygen Saturation (75911-9) 94 % Respiratory Rate (9279-1) 16 /min Heart Rate (8867-4) 69 /min Blood Pressure Systolic (8480-6) 105 mm[Hg] Blood Pressure Diastolic (8462-4) 58 mm[Hg] 05/22/2025 12:52 PM Temperature (8310-5) 97.4 [degF] Oxygen Saturation (17368-2) 95 % Respiratory Rate (9279-1) 20 /min Heart Rate (8867-4) 70 /min Blood Pressure Systolic (8480-6) 108 mm[Hg] Blood Pressure Diastolic (8462-4) 60 mm[Hg] 05/22/2025 10:18 PM Temperature (8310-5) 98.2 [degF] Oxygen Saturation (57009-2) 98 % Respiratory Rate (9279-1) 21 /min Heart Rate (8867-4) 77 /min Blood Pressure Systolic (8480-6) 131 mm[Hg] Blood Pressure Diastolic (8462-4) 77 mm[Hg] 05/23/2025 09:27 AM Temperature (8310-5) 98 [degF] Oxygen Saturation (18706-4) 97 % Respiratory Rate (9279-1) 20 /min Heart Rate (8867-4) 88 /min Blood Pressure Systolic (8480-6) 130 mm[Hg] Blood Pressure Diastolic (8462-4) 88 mm[Hg] 05/24/2025 04:16 AM Temperature (8310-5) 98.2 [degF] Oxygen Saturation (50039-6) 94 % Respiratory Rate (9279-1) 17 /min Heart Rate (8867-4) 67 /min Blood Pressure Systolic (8480-6) 142 mm[Hg] Blood Pressure Diastolic (8462-4) 61 mm[Hg] 05/24/2025 02:53 PM Temperature (8310-5) 97.8 [degF] Oxygen Saturation (11618-8) 97 % Respiratory Rate (9279-1) 17 /min Heart Rate (8867-4) 70 /min Blood Pressure Systolic (8480-6) 130 mm[Hg] Blood Pressure Diastolic (8462-4) 68 mm[Hg] 05/24/2025 07:00 PM Temperature (8310-5) 97.9 [degF] Oxygen Saturation (23743-8) 93 % Respiratory Rate (9279-1) 19 /min Heart Rate (8867-4) 84 /min Blood Pressure Systolic (8480-6) 124 mm[Hg] Blood Pressure Diastolic (8462-4) 74 mm[Hg] 05/25/2025 01:37 PM Temperature (8310-5) 97.4 [degF] Oxygen Saturation (28478-1) 94 % Respiratory Rate (9279-1) 18 /min Heart Rate (8867-4) 73 /min Blood Pressure Systolic (8480-6) 120 mm[Hg] Blood Pressure Diastolic (8462-4) 72 mm[Hg] 05/25/2025 07:07 PM Temperature (8310-5) 97.9 [degF] Oxygen Saturation (73229-5) 96 % Respiratory Rate (9279-1) 18 /min Heart Rate (8867-4) 93 /min Blood Pressure Systolic (8480-6) 118 mm[Hg] Blood Pressure Diastolic (8462-4) 74 mm[Hg] 05/26/2025 10:24 AM Temperature (8310-5) 97.9 [degF] Oxygen Saturation (85871-6) 96 % Respiratory Rate (9279-1) 17 /min Heart Rate (8867-4) 80 /min Blood Pressure Systolic (8480-6) 107 mm[Hg] Blood Pressure Diastolic (8462-4) 64 mm[Hg] 05/26/2025 03:38 PM Body Weight (33127-9) 95.4 [lb_av] Body Mass Index (36151-5) 18.63 kg/m2 05/26/2025 09:20 PM Temperature (8310-5) 97.8 [degF] Oxygen Saturation (72535-0) 96 % Respiratory Rate (9279-1) 18 /min Heart Rate (8867-4) 93 /min Blood Pressure Systolic (8480-6) 112 mm[Hg] Blood Pressure Diastolic (8462-4) 64 mm[Hg] 05/27/2025 01:25 PM Temperature (8310-5) 97.6 [degF] Oxygen Saturation (06377-2) 95 % Respiratory Rate (9279-1) 17 /min Heart Rate (8867-4) 83 /min Blood Pressure Systolic (8480-6) 106 mm[Hg] Blood Pressure Diastolic (8462-4) 67 mm[Hg] 05/27/2025 07:14 PM Temperature (8310-5) 97.4 [degF] Oxygen Saturation (53665-3) 95 % Respiratory Rate (9279-1) 19 /min Heart Rate (8867-4) 67 /min Blood Pressure Systolic (8480-6) 103 mm[Hg] Blood Pressure Diastolic (8462-4) 56 mm[Hg] 05/28/2025 06:48 PM Temperature (8310-5) 97.8 [degF] Oxygen Saturation (26548-3) 96 % Respiratory Rate (9279-1) 17 /min Heart Rate (8867-4) 80 /min Blood Pressure Systolic (8480-6) 110 mm[Hg] Blood Pressure Diastolic (8462-4) 82 mm[Hg] 05/28/2025 11:21 PM Temperature (8310-5) 98.5 [degF] Oxygen Saturation (22198-1) 93 % Respiratory Rate (9279-1) 17 /min Heart Rate (8867-4) 68 /min Blood Pressure Systolic (8480-6) 103 mm[Hg] Blood Pressure Diastolic (8462-4) 63 mm[Hg] 05/29/2025 08:08 AM Temperature (8310-5) 97.1 [degF] Oxygen Saturation (62540-9) 94 % Respiratory Rate (9279-1) 20 /min Heart Rate (8867-4) 70 /min Blood Pressure Systolic (8480-6) 108 mm[Hg] Blood Pressure Diastolic (8462-4) 68 mm[Hg] 05/29/2025 08:23 PM Temperature (8310-5) 98.6 [degF] Oxygen Saturation (18143-9) 95 % Respiratory Rate (9279-1) 16 /min Heart Rate (8867-4) 64 /min Blood Pressure Systolic (8480-6) 110 mm[Hg] Blood Pressure Diastolic (8462-4) 70 mm[Hg] 05/30/2025 08:33 AM Temperature (8310-5) 97.1 [degF] Oxygen Saturation (67756-1) 94 % Respiratory Rate (9279-1) 20 /min Heart Rate (8867-4) 70 /min Blood Pressure Systolic (8480-6) 108 mm[Hg] Blood Pressure Diastolic (8462-4) 68 mm[Hg] 05/31/2025 01:34 AM Temperature (8310-5) 98.6 [degF] Oxygen Saturation (19796-3) 95 % Respiratory Rate (9279-1) 17 /min Heart Rate (8867-4) 91 /min Blood Pressure Systolic (8480-6) 114 mm[Hg] Blood Pressure Diastolic (8462-4) 70 mm[Hg] 05/31/2025 11:33 AM Temperature (8310-5) 98 [degF] Oxygen Saturation (22619-7) 95 % Respiratory Rate (9279-1) 17 /min Heart Rate (8867-4) 70 /min Blood Pressure Systolic (8480-6) 125 mm[Hg] Blood Pressure Diastolic (8462-4) 68 mm[Hg] 05/31/2025 06:15 PM Temperature (8310-5) 97.4 [degF] Oxygen Saturation (32022-4) 96 % Respiratory Rate (9279-1) 18 /min Heart Rate (8867-4) 68 /min Blood Pressure Systolic (8480-6) 122 mm[Hg] Blood Pressure Diastolic (8462-4) 66 mm[Hg] 06/01/2025 12:27 PM Temperature (8310-5) 97.4 [degF] Oxygen Saturation (01408-1) 96 % Respiratory Rate (9279-1) 16 /min Heart Rate (8867-4) 80 /min Blood Pressure Systolic (8480-6) 144 mm[Hg] Blood Pressure Diastolic (8462-4) 60 mm[Hg] 06/01/2025 06:25 PM Temperature (8310-5) 97.9 [degF] Oxygen Saturation (16734-4) 96 % Respiratory Rate (9279-1) 19 /min Heart Rate (8867-4) 76 /min Blood Pressure Systolic (8480-6) 126 mm[Hg] Blood Pressure Diastolic (8462-4) 74 mm[Hg] 06/02/2025 08:39 AM Temperature (8310-5) 97.6 [degF] Oxygen Saturation (44825-2) 95 % Respiratory Rate (9279-1) 18 /min Heart Rate (8867-4) 70 /min Blood Pressure Systolic (8480-6) 118 mm[Hg] Blood Pressure Diastolic (8462-4) 70 mm[Hg] 06/02/2025 09:11 PM Temperature (8310-5) 97.6 [degF] Oxygen Saturation (64385-2) 97 % Respiratory Rate (9279-1) 19 /min Heart Rate (8867-4) 85 /min Blood Pressure Systolic (8480-6) 121 mm[Hg] Blood Pressure Diastolic (8462-4) 87 mm[Hg] 06/03/2025 09:42 AM Temperature (8310-5) 97.7 [degF] Oxygen Saturation (32431-9) 97 % Respiratory Rate (9279-1) 14 /min Heart Rate (8867-4) 86 /min Blood Pressure Systolic (8480-6) 105 mm[Hg] Blood Pressure Diastolic (8462-4) 68 mm[Hg] 06/03/2025 09:00 PM Temperature (8310-5) 97.9 [degF] Oxygen Saturation (82640-2) 95 % Respiratory Rate (9279-1) 18 /min Heart Rate (8867-4) 87 /min Blood Pressure Systolic (8480-6) 101 mm[Hg] Blood Pressure Diastolic (8462-4) 68 mm[Hg] 06/04/2025 03:17 PM Temperature (8310-5) 97.8 [degF] Oxygen Saturation (13068-6) 97 % Respiratory Rate (9279-1) 19 /min Heart Rate (8867-4) 82 /min Blood Pressure Systolic (8480-6) 112 mm[Hg] Blood Pressure Diastolic (8462-4) 70 mm[Hg] 06/04/2025 07:04 PM Temperature (8310-5) 98.6 [degF] Oxygen Saturation (25538-0) 96 % Respiratory Rate (9279-1) 17 /min Heart Rate (8867-4) 67 /min Blood Pressure Systolic (8480-6) 120 mm[Hg] Blood Pressure Diastolic (8462-4) 74 mm[Hg] 06/05/2025 01:36 PM Temperature (8310-5) 98.2 [degF] Oxygen Saturation (64844-8) 96 % Respiratory Rate (9279-1) 17 /min Heart Rate (8867-4) 78 /min Blood Pressure Systolic (8480-6) 114 mm[Hg] Blood Pressure Diastolic (8462-4) 64 mm[Hg] 06/06/2025 08:40 AM Temperature (8310-5) 98.2 [degF] Oxygen Saturation (25128-3) 93 % Respiratory Rate (9279-1) 20 /min Heart Rate (8867-4) 88 /min Blood Pressure Systolic (8480-6) 132 mm[Hg] Blood Pressure Diastolic (8462-4) 68 mm[Hg] 06/06/2025 01:00 AM Temperature (8310-5) 97.9 [degF] Oxygen Saturation (01015-3) 97 % Respiratory Rate (9279-1) 17 /min Heart Rate (8867-4) 79 /min Blood Pressure Systolic (8480-6) 122 mm[Hg] Blood Pressure Diastolic (8462-4) 73 mm[Hg] 06/06/2025 10:55 PM Temperature (8310-5) 98.4 [degF] Oxygen Saturation (37912-5) 97 % Respiratory Rate (9279-1) 16 /min Heart Rate (8867-4) 83 /min Blood Pressure Systolic (8480-6) 116 mm[Hg] Blood Pressure Diastolic (8462-4) 62 mm[Hg] 06/07/2025 08:49 AM Temperature (8310-5) 98.1 [degF] Oxygen Saturation (37912-7) 97 % Respiratory Rate (9279-1) 20 /min Heart Rate (8867-4) 69 /min Blood Pressure Systolic (8480-6) 112 mm[Hg] Blood Pressure Diastolic (8462-4) 85 mm[Hg] 06/07/2025 06:25 PM Temperature (8310-5) 97.7 [degF] Oxygen Saturation (41853-9) 95 % Respiratory Rate (9279-1) 19 /min Heart Rate (8867-4) 93 /min Blood Pressure Systolic (8480-6) 132 mm[Hg] Blood Pressure Diastolic (8462-4) 76 mm[Hg] 06/08/2025 09:17 AM Temperature (8310-5) 97.8 [degF] Oxygen Saturation (88195-9) 96 % Respiratory Rate (9279-1) 18 /min Heart Rate (8867-4) 74 /min Blood Pressure Systolic (8480-6) 121 mm[Hg] Blood Pressure Diastolic (8462-4) 68 mm[Hg] 06/08/2025 07:08 PM Temperature (8310-5) 97.8 [degF] Oxygen Saturation (34131-6) 95 % Respiratory Rate (9279-1) 18 /min Heart Rate (8867-4) 95 /min Blood Pressure Systolic (8480-6) 101 mm[Hg] Blood Pressure Diastolic (8462-4) 70 mm[Hg] 06/09/2025 02:59 PM Temperature (8310-5) 97.3 [degF] Oxygen Saturation (06332-2) 93 % Respiratory Rate (9279-1) 16 /min Heart Rate (8867-4) 88 /min Blood Pressure Systolic (8480-6) 100 mm[Hg] Blood Pressure Diastolic (8462-4) 64 mm[Hg] 06/09/2025 07:03 PM Temperature (8310-5) 97.6 [degF] Oxygen Saturation (15633-2) 95 % Respiratory Rate (9279-1) 18 /min Heart Rate (8867-4) 82 /min Blood Pressure Systolic (8480-6) 126 mm[Hg] Blood Pressure Diastolic (8462-4) 74 mm[Hg] 06/10/2025 08:30 AM Temperature (8310-5) 97.3 [degF] Oxygen Saturation (95337-4) 96 % Respiratory Rate (9279-1) 18 /min Heart Rate (8867-4) 86 /min Blood Pressure Systolic (8480-6) 112 mm[Hg] Blood Pressure Diastolic (8462-4) 65 mm[Hg] 06/10/2025 08:20 PM Temperature (8310-5) 98.1 [degF] Oxygen Saturation (27698-9) 97 % Respiratory Rate (9279-1) 16 /min Heart Rate (8867-4) 70 /min Blood Pressure Systolic (8480-6) 101 mm[Hg] Blood Pressure Diastolic (8462-4) 56 mm[Hg] 06/11/2025 03:10 PM Temperature (8310-5) 97.9 [degF] Oxygen Saturation (43402-0) 98 % Respiratory Rate (9279-1) 19 /min Heart Rate (8867-4) 82 /min Blood Pressure Systolic (8480-6) 112 mm[Hg] Blood Pressure Diastolic (8462-4) 68 mm[Hg] 06/11/2025 07:03 PM Oxygen Saturation (72204-3) 97 % Respiratory Rate (9279-1) 17 /min Heart Rate (8867-4) 70 /min Blood Pressure Systolic (8480-6) 115 mm[Hg] Blood Pressure Diastolic (8462-4) 70 mm[Hg] 06/12/2025 09:21 AM Body Weight (24281-7) 92.2 [lb_av] Body Mass Index (70303-2) 18 kg/m2 06/12/2025 09:37 AM Temperature (8310-5) 98.3 [degF] Oxygen Saturation (73900-5) 93 % Respiratory Rate (9279-1) 19 /min Heart Rate (8867-4) 79 /min Blood Pressure Systolic (8480-6) 92 mm[Hg] Blood Pressure Diastolic (8462-4) 78 mm[Hg] 06/12/2025 07:35 PM Temperature (8310-5) 99.2 [degF] Oxygen Saturation (33570-4) 98 % Respiratory Rate (9279-1) 18 /min Heart Rate (8867-4) 98 /min Blood Pressure Systolic (8480-6) 118 mm[Hg] Blood Pressure Diastolic (8462-4) 85 mm[Hg] 06/13/2025 01:27 PM Temperature (8310-5) 97 [degF] Oxygen Saturation (96605-6) 97 % Respiratory Rate (9279-1) 18 /min Heart Rate (8867-4) 90 /min Blood Pressure Systolic (8480-6) 112 mm[Hg] Blood Pressure Diastolic (8462-4) 78 mm[Hg] 06/13/2025 10:29 PM Temperature (8310-5) 98.4 [degF] Respiratory Rate (9279-1) 17 /min Heart Rate (8867-4) 57 /min Blood Pressure Systolic (8480-6) 124 mm[Hg] Blood Pressure Diastolic (8462-4) 46 mm[Hg] 06/13/2025 10:30 PM Oxygen Saturation (86583-4) 94 % 06/14/2025 09:20 AM Temperature (8310-5) 97.6 [degF] Oxygen Saturation (95304-3) 95 % Respiratory Rate (9279-1) 16 /min Heart Rate (8867-4) 72 /min Blood Pressure Systolic (8480-6) 112 mm[Hg] Blood Pressure Diastolic (8462-4) 68 mm[Hg] 06/14/2025 07:09 PM Temperature (8310-5) 97.8 [degF] Oxygen Saturation (84970-0) 98 % Respiratory Rate (9279-1) 18 /min Heart Rate (8867-4) 78 /min Blood Pressure Systolic (8480-6) 120 mm[Hg] Blood Pressure Diastolic (8462-4) 78 mm[Hg] 06/15/2025 07:48 AM Temperature (8310-5) 98.1 [degF] Oxygen Saturation (97892-4) 94 % Respiratory Rate (9279-1) 16 /min Heart Rate (8867-4) 70 /min Blood Pressure Systolic (8480-6) 117 mm[Hg] Blood Pressure Diastolic (8462-4) 62 mm[Hg] 06/15/2025 06:44 PM Temperature (8310-5) 97.7 [degF] Oxygen Saturation (08429-0) 97 % Respiratory Rate (9279-1) 18 /min Heart Rate (8867-4) 87 /min Blood Pressure Systolic (8480-6) 110 mm[Hg] Blood Pressure Diastolic (8462-4) 66 mm[Hg] 06/16/2025 09:05 AM Temperature (8310-5) 98.2 [degF] Oxygen Saturation (89045-8) 99 % Respiratory Rate (9279-1) 16 /min Heart Rate (8867-4) 87 /min Blood Pressure Systolic (8480-6) 100 mm[Hg] Blood Pressure Diastolic (8462-4) 62 mm[Hg] 06/16/2025 10:34 AM Temperature (8310-5) 98.2 [degF] Oxygen Saturation (69689-2) 99 % Respiratory Rate (9279-1) 16 /min Heart Rate (8867-4) 87 /min 06/16/2025 06:56 PM Temperature (8310-5) 97.7 [degF] Oxygen Saturation (28403-2) 94 % Respiratory Rate (9279-1) 18 /min Heart Rate (8867-4) 84 /min Blood Pressure Systolic (8480-6) 122 mm[Hg] Blood Pressure Diastolic (8462-4) 76 mm[Hg] 2025 11:02 AM Temperature (8310-5) 97.4 [degF] Oxygen Saturation (31975-7) 98 % Respiratory Rate (9279-1) 18 /min Heart Rate (8867-4) 78 /min Blood Pressure Systolic (8480-6) 122 mm[Hg] Blood Pressure Diastolic (8462-4) 80 mm[Hg] 2025 08:14 PM Temperature (8310-5) 97.8 [degF] Oxygen Saturation (70036-5) 96 % Respiratory Rate (9279-1) 19 /min Heart Rate (8867-4) 86 /min Blood Pressure Systolic (8480-6) 126 mm[Hg] Blood Pressure Diastolic (8462-4) 80 mm[Hg] Social History No smoking Hx information available Encounters Type CPT Code Date Location Provider Indication s encounter report 05/01/2025 07:27 PM Afua Spears DO 01 Advance Directives Directive Description Verification Date Supporting Document(s) Resuscitation
--- NOTE | 2025-06-18 16:18 | ED_ITS ---
HPI - Fall 2 General: Chief Complaint: Fall Stated Complaint: fall - obvious shortening, right hip Source: EMS and old records reviewed Mode of arrival: EMS Limitations: altered mental status History of Present Illness: block patient is an 80-year-old female presents the emergency department from the memory unit at [facility], presenting by EMS for a fall. She arrives with shortening and external rotation of the right lower extremity it is reported that she landed on her right hip. No reports of head injury, she is at baseline mentation which is chronic disorientation from her history of dementia. 75 mcg fentanyl given prehospital as well as Phenergan, she arrives nontoxic- appearing, vitals overall stable. Unable to provide any reliable review of systems. CODE STATUS is limited resuscitation. MD complaint: fall (right hip fx) Related Data Home Medications ?Medication ?Instructions ?Recorded ?Confirmed calcium 600 mg (as 1 tab PO BID 05/28/25 carbonate)-vitamin D3 10 mcg (400 unit) tablet lorazepam 0.5 mg tablet (Ativan) 0.5 mg PO DAILY PRN A gitation 05/28/25 06/18/25 oxycodone 5 mg tablet 5 mg PO Q6H PRN Pain 5 06/18/25 acetaminophen 325 mg tablet 650 mg PO QID PRN pain/inc reased 06/18/25 06/18/25 temp bisacodyl 10 mg rectal suppository 10 mg VA DAILY PRN Constipation 06/18/25 06/18/25 (Dulcolax (bisacodyl)) bisacodyl 5 mg tablet,delayed 10 mg PO DAILY PRN Const ipation 06/18/25 06/18/25 release (Dulcolax (bisacodyl)) magnesium hydroxide 400 mg/5 mL 30 ml PO DAILY PRN Con stipation 06/18/25 06/18/25 oral suspension (Milk of Magnesia) sodium phosphates 19 gram-7 118 ml VA DAILY PRN Consti pation 06/18/25 06/18/25 gram/118 mL enema (Fleet Enema) Previous Rx's ?Medication ?Instructions ?Recorded calcium carbonate 1,000 mg (5 x 200 mg calcium (500 04/30/25 mg)) PO BID #0 tabs Allergies Allergy/AdvReac Type Severity Reaction Status Date / Time ibuprofen Allergy ADR-Vomitin Verified 06/18/25 16:04 g morphine Allergy ALGY-Difficulty Verified 06/18/25 16:04 Breathing Sulfa (Sulfonamide Allergy Unknown Verified 06/18/25 16:04 Antibiotics) tramadol Allergy Unconscious Verified 06/18/25 16:04 Review of Systems 2 General: Reports: ROS unobtainable due to mental status PFSH ED 2 PFSH: Medical History Rupture of implant of left breast History of breast cancer Dementia Surgical History History of appendectomy H/O mastectomy Social History Smoking and tobacco/nicotine status: former use of tobacco/nicotine Alcohol intake: never Substance/Drug Use: never Lives independently: No Household members: family Physical Exam 2 Const: COMMON NORMALS: alert EXAM LIMITATIONS: altered mental status O RIENTATION/CONSCIOUSNESS: Yes awake OTHER: baseline mentation HENMT: COMMON NORMALS: normocephalic and atraumatic HEAD & SCALP: n ormocephalic and atraumatic; no Simmons's sign and no raccoon eyes FACE & SINUS: normal facial exam Neck/C-Spine: COMMON NORMALS: full ROM OTHER: full ROM, no C-spine TTP Chest: COMMONS NORMALS: normal inspection of the chest and normal palpation of entire chest wall Resp: COMMON NORMALS: normal respiratory effort, No retractions, No use of accessory muscles and clear to auscultation bilaterally AUSCULTATION: clear to auscultation bilaterally Cardio: COMMON NORMALS: regular rate and regular rhythm RATE: regular rate RHYTHM: regular rhythm GI: COMMON NORMALS: Soft to palpation and non-tender PALPATION: Yes Soft to palpation Extremity: NARRATIVE EXTREMITY EXAM: Tender to palpation to right anterolateral hip. The right lower extremity is shortened and externally rotated. Distal pulses are palpable. No coolness or pallor of the right lower extremity. Neuro: COMMON NORMALS: moves all extremities, no focal motor deficits and no sensory deficits noted SENSORIUM/ORIENTATION: Yes alert Skin: COMMON NORMALS: no rashes or lesions noted GENERAL SKIN EXAM: no rashes or lesions noted Course 2 Vital Signs: Vital signs: Vital Signs Temperature 98.7 F 06/18/25 15:45 Pulse Rate 84 06/18/25 15:45 Respiratory Rate 14 06/18/25 15:45 Blood Pressure 158/100 06/18/25 15:45 Pulse Oximetry 100 06/18/25 15:45 MDM - Fall Medical Decision Making Patient presented for memory unit at long-term due to a fall, injuring her right hip and x-ray evidence showing comminuted displaced intertrochanteric fracture. Reportedly a couple months ago fractured her left hip and has been rehabbing this. Likely this is what caused the fall, as she has been increasingly ambulatory through her rehab process. There were no other injuries noted on exam, the neurovascular exam was also unremarkable. She has been at baseline mentation. Family in the room have been primary historians. EKG unremarkable, lab workup unremarkable at this time. Spoke to on-call orthopedist, Dr. Graff, agreed to consult patient in the morning. Spoke to Dr. Yanez, hospitalist who accepts patient into the hospital. Dr. Montelongo informed of this patient's case and current findings and will put in admit orders. Lab Data 06/18/25 17:42 06/18/25 17:42 Radiology Impressions Hip/Pelvis X-Ray 06/18/25 15:52 IMPRESSION: Comminuted and displaced intertrochanteric fracture involving the proximal right femur. Overlying soft tissue swelling. Orthopedic consultation is recommended. Knee X-Ray 06/18/25 16:37 IMPRESSION: No acute fracture. No large joint effusion. Laboratory Results WBC 13.17 10^3/uL (3.29-11.43) H 06/18/25 17:42 RBC 4.26 10^6/uL (3.85-5.65) 06/18/25 17:42 Hgb 12.50 g/dL (11.27-16.99) 06/18/25 17:42 Hct 40.8 % (36-47) 06/18/25 17:42 MCV 95.8 fl (85-98) 06/18/25 17:42 MCH 29.3 pg (27-33) 06/18/25 17:42 MCHC 30.6 g/dL (30-55) 06/18/25 17:42 RDW 14.1 % (12.1-15.1) 06/18/25 17:42 Plt Count 145 10^3/cmm (157-399) L 06/18/25 17:42 MPV 11.9 fL (7.4-10.4) H 06/18/25 17:42 Neut % (Auto) 88.5 % 06/18/25 17:42 Lymph % (Auto) 5.7 % 06/18/25 17:42 Gilmer % (Auto) 4.3 % 06/18/25 17:42 Eos % (Auto) 0.4 % 06/18/25 17:42 Baso % (Auto) 0.3 % 06/18/25 17:42 Neut # (Auto) 11.67 10^3/uL (1.8-7.7) H 06/18/25 17:42 Lymph # (Auto) 0.8 10^3/uL (0.8-4.8) 06/18/25 17:42 Gilmer # (Auto) 0.6 10^3/uL (0.2-0.9) 06/18/25 17:42 Eos # (Auto) 0.1 10^3/uL (0.0-0.8) 06/18/25 17:42 Baso # (Auto) 0.0 10^3/uL (0.0-0.1) 06/18/25 17:42 Nucleated RBC % (auto) 0 % 06/18/25 17:42 Nucleated RBCs # 0.0 /100WBC 06/18/25 17:42 PT 12.50 SECONDS (12.1-14.9) 06/18/25 17:42 INR 0.87 (0.8-1.2) 06/18/25 17:42 APTT 27.7 SECONDS (23.9-36.7) 06/18/25 17:42 Sodium 137 mmol/L (136-145) 06/18/25 17:42 Potassium 4.3 mmol/L (3.5-5.1) 06/18/25 17:42 Chloride 102 mmol/L (98-107) 06/18/25 17:42 Carbon Dioxide 23 mmol/L (22-29) 06/18/25 17:42 Anion Gap 16.3 (5-19) 06/18/25 17:42 BUN 24 mg/dL (8-23) H 06/18/25 17:42 Creatinine 0.6 mg/dL (0.5-0.9) 06/18/25 17:42 GFR Calculation Not Reportable 06/18/25 17:42 Glucose 98 mg/dL (65-115) 06/18/25 17:42 Calculated Osmolality 288 mOsm/kg (285-295) 06/18/25 17:42 Calcium 9.4 mg/dL (8.5-10.5) 06/18/25 17:42 Total Bilirubin 0.3 mg/dL (0.15-1.2) 06/18/25 17:42 AST 27 U/L (0-32) 06/18/25 17:42 ALT 22 U/L (0-33) 06/18/25 17:42 Alkaline Phosphatase 175 U/L (35-105) H 06/18/25 17:42 Total Protein 7.1 g/dL (6.6-8.7) 06/18/25 17:42 Albumin 3.8 g/dL (3.5-5.2) 06/18/25 17:42 Globulin 3.3 g/dL (1.3-4.6) 06/18/25 17:42 All radiology interpretation(s) finalized by discharge Discharge Plan Discharge Patient Disposition: Admitted As Inpatient Clinical Impression: Closed fracture of right hip Qualifiers: Encounter type: initial encounter Qualified Code(s): S72.001A - Fracture of unspecified part of neck of right femur, initial encounter for closed fracture Condition: Stable Coding Level of Care Code ED Medical Sales Representative for Fe Guzman
--- NOTE | 2025-06-18 16:37 | XRR_ITS ---
PROCEDURE INFORMATION: Exam: XR Right Knee Exam date and time: 06/18/2025 5:13 PM Age: 80 years old Clinical indication: Injury or trauma; Fall; Fracture, traumatic; Displaced; Hip; Right; Additional info: Hip FX, joint below TECHNIQUE: Imaging protocol: Radiologic exam of the right knee. Views: 3 views. COMPARISON: No relevant prior studies available. FINDINGS: Bones/joints: Bones are demineralized. No acute fracture or malalignment. No suspicious bone lesion. No large joint effusion. Soft tissues: Overlying soft tissues appear unremarkable. No opaque foreign body. XR/XR knee RT 3V* 71100 IMPRESSION: No acute fracture. No large joint effusion.
--- NOTE | 2025-06-18 17:55 | ECG_ITS ---
[facility] Test Date: 2025-06-18 Pat Name: Fior Mead Department: Room: Gender: Female Second Cook [employer]: : 1945 Requested By: Jorge Luis Baires Order Number: [id number] Vanessa MD: Anna Gamez M.D. Measurements Intervals [place] Rate: 86 P: 33 VA: 135 QRS: -26 QRSD: 86 T: 32 QT: 368 QTc: 442 Interpretive Statements SINUS RHYTHM BORDERLINE LEFT AXIS DEVIATION [QRS AXIS < -20] Compared to ECG 04/28/2025 07:19:33 ST (T wave) deviation no longer present Electronically Signed On 06-19-2025 13:05:23 WIG DRESSER by Anna Gamez M.D. [email or web address]
[2025-06-18 17:57] LABS: Hematocrit 40.8 % (36-47); Hemoglobin 12.50 g/dL (11.27-16.99); Mean Corpuscular HGB Conc 30.6 g/dL (30-55); Mean Corpuscular Hemoglobin 29.3 pg (27-33); Mean Corpuscular Volume 95.8 fl (85-98); Nucleated Red Blood Cells % 0 %; Platelet Count 145 10^3/cmm (157-399); Red Blood Count 4.26 10^6/uL (3.85-5.65); White Blood Count 13.17 10^3/uL (3.29-11.43)
[2025-06-18 18:09] LABS: INR 0.87 (0.8-1.2); Prothrombin Time 12.50 SECONDS (12.1-14.9)
[2025-06-18 18:10] LABS: Partial Thromboplastin Time 27.7 SECONDS (23.9-36.7)
[2025-06-18 18:15] LABS: Alanine Aminotransferase 22 U/L (0-33); Albumin Level 3.8 g/dL (3.5-5.2); Alkaline Phosphatase 175 U/L (35-105); Anion Gap 16.3 (5-19); Aspartate Amino Transferase 27 U/L (0-32); Blood Urea Nitrogen 24 mg/dL (8-23); Calcium 9.4 mg/dL (8.5-10.5); Carbon Dioxide 23 mmol/L (22-29); Chloride 102 mmol/L (98-107); Globulin 3.3 g/dL (1.3-4.6); Glucose 98 mg/dL (65-115); Osmolality Calculated 288 mOsm/kg (285-295); Potassium 4.3 mmol/L (3.5-5.1); Sodium 137 mmol/L (136-145); Total Protein 7.1 g/dL (6.6-8.7)
[2025-06-18 18:31] VITALS: BP 138/89; PULSE 88; O2SAT 91
--- NOTE | 2025-06-18 18:31 | PC.NURSE ---
belcher placed by this RN prior to moving to [place], 200mls returned.
--- NOTE | 2025-06-18 18:46 | PM.HP ---
Providers/Chief Complaint Admitting Physician: Hakeem Sainz MD Chief Complaint: fall - obvious shortening, right hip History of Present Illness Fior Mead is a 80 year old female with past medical history of advanced dementia with baseline mentation of AO x 1 from memory unit at [facility] with recent history of left hip fracture post-ORIF in April 2025 presents to the ER today after sustaining a fall at [facility] dining garg after which she started complaining of pain in her right hip and was found to have a right hip intertrochanteric fracture. Orthopedic has been consulted from the ER. Review of Systems General: Reports: ROS unobtainable due to mental status Medications/Allergies Home Medications ?Medication ?Instructions ?Recorded ?Confirmed ?Last Taken ?Type calcium carbonate 1,000 mg (5 x 200 mg calcium (500 04/30/25 06/18/25 Unknown Rx mg)) PO BID #0 tabs calcium 600 mg (as 1 tab PO BID 05/28/25 06/18/25 06/18/25 History carbonate)-vitamin D3 10 mcg (400 unit) tablet lorazepam 0.5 mg tablet (Ativan) 0.5 mg PO DAILY PRN Agitation 05/28/25 06/18/25 Unknown History oxycodone 5 mg tablet 5 mg PO Q6H PRN Pain 05/28/25 06/18/25 06/14/25 History acetaminophen 325 mg tablet 650 mg PO QID PRN pain/increased 06/18/25 06/18/25 Unknown History temp bisacodyl 10 mg rectal suppository 10 mg VT DAILY PRN Constipation 06/18/25 06/18/25 04/30/25 History (Dulcolax (bisacodyl)) bisacodyl 5 mg tablet,delayed 10 mg PO DAILY PRN Constipation 06/18/25 06/18/25 04/30/25 History release (Dulcolax (bisacodyl)) magnesium hydroxide 400 mg/5 mL 30 ml PO DAILY PRN Constipation 06/18/25 06/18/25 04/30/25 History oral suspension (Milk of Magnesia) sodium phosphates 19 gram-7 118 ml VT DAILY PRN Constipation 06/18/25 06/18/25 Unknown History gram/118 mL enema (Fleet Enema) Allergies Allergy/AdvReac Type Severity Reaction Status Date / Time ibuprofen Allergy ADR-Vomitin Verified 06/18/25 16:04 g morphine Allergy ALGY-Difficulty Verified 06/18/25 16:04 Breathing Sulfa (Sulfonamide Allergy Unknown Verified 06/18/25 16:04 Antibiotics) tramadol Allergy Unconscious Verified 06/18/25 16:04 PFSH Acute PFSH: Medical History (Updated 06/19/25 @ 11:49 by Hakeem Sainz MD) Closed displaced intertrochanteric fracture of left femur, initial encounter Rupture of implant of left breast History of breast cancer Dementia Surgical History (Updated 06/19/25 @ 11:49 by Hakeem Sainz MD) Status post-operative repair of closed fracture of left hip History of appendectomy H/O mastectomy Social History Smoking and tobacco/nicotine status: former use of tobacco/nicotine Alcohol intake: never Substance/Drug Use: never Lives independently: No Household members: family Vitals/I&O/Wt Last Vital Signs Temp 98.7 F 06/18/25 15:45 Pulse 88 06/18/25 18:31 Resp 14 06/18/25 15:45 BP 138/89 06/18/25 18:31 Pulse Ox 91 06/18/25 18:31 06/18/25 06/18/25 06/18/25 06:59 14:59 22:59 Intake Total 0 / 0 Balance 0 / 0 Weight last 48 hrs Weight 49.895 kg Physical Exam Narrative: General: No acute distress, AO x 1 HEENT: PERRLA, pupils bilaterally equal and reactive Chest: Normal vesicular breath sounds, no added sounds, equal good air entry bilaterally CVS: S1-S2 regular, no murmurs, no tachycardia, no gallops, no rubs Abdomen: Soft, nontender, no organomegaly, bowel sounds present Neuro: No focal deficits, no facial deformity, Data 06/19/25 04:48 06/19/25 04:48 A&P Assessment and plan 1. Closed displaced intertrochanteric fracture of right femur, initial encounter: Orthopedic consulted from the ER. Plan for ORIF in AM. N.p.o. after midnight. Will monitor hemoglobin post OR. Check INR, EKG, chest x-ray. Continue with oxycodone every 6 hours as needed for pain management. 2. Dementia: Continue with home dose of Ativan 0.5 mg daily as needed for agitation. Add Celexa and donepezil. Haldol 1 mg IM every 4 hours as needed for agitation. Plan: Check urinalysis. Empirically start on IV ceftriaxone 1 g daily for now. Check TSH, procalcitonin, vitamin B12, folate level, iron panel, A1c. CODE STATUS: Limited resuscitation with okay admission to ICU if needed as per previous admission 1 month ago. Clear liquid diet, n.p.o. after midnight Protonix for PUD prophylaxis SCD for DVT prophylaxis. PDMP PDMP Reviewed: Not Reviewed Attestations Medical Necessity Statement*: Admission for more than 2 midnights for management of closed intertrochanteric fracture of the right femur post fall in a patient with advanced dementia from memory unit at [facility]. Diagnoses Closed displaced intertrochanteric fracture of right femur, initial encounter S72.141A Encounter type: initial encounter Fracture alignment: displaced Dementia F03.90
[2025-06-18 19:20] VITALS: BMI 19.8
[2025-06-18 19:24] LABS: Estmated Average Glucose 100; Hemoglobin A1C 5.1 % (4.0-6.0)
[2025-06-18 19:58] LABS: Procalcitonin 0.06 ng/mL (0-0.5); Thyroid Stimulating Hormone 4.27 uIU/mL (0.27-4.20); Vitamin B12 807 pg/mL (232-1245)
[2025-06-18 20:09] LABS: Iron 54 ug/dL (37-145); Total Iron Binding Capacity 332 mcg/dl; Unsaturated Iron Binding 278 ug/dL (112-347)
[2025-06-18] MEDS: cefTRIAXone 1,000 mg SDV 1000 MG IVP (20:28)
[2025-06-18] MEDS: pantoprazole 40 mg SDV IVP (20:29)
[2025-06-18 21:00] VITALS: BP 141/86; PULSE 87; RESP 17; TEMP 36.9; O2SAT 92
[2025-06-18 21:25] LABS: Glucose Urine UA Negative (Normal); Nitrate Urine Negative (Negative); Specific Gravity, Urine 1.025 (1.005-1.030)
[2025-06-18 21:30] LABS: Add Urine Microscopic? YES
[2025-06-18 22:41] VITALS: O2SAT 92
[2025-06-19] VITALS (28 sets, daily range): BP systolic 91–151; BP diastolic 59–104; PULSE 78–97; RESP 15–20; TEMP 36.6–37.7; O2SAT 94–100
[2025-06-19 04:53] LABS: Hematocrit 34.2 % (36-47); Hemoglobin 10.50 g/dL (11.27-16.99); Mean Corpuscular HGB Conc 30.7 g/dL (30-55); Mean Corpuscular Hemoglobin 29.3 pg (27-33); Mean Corpuscular Volume 95.5 fl (85-98); Nucleated Red Blood Cells % 0 %; Platelet Count 185 10^3/cmm (157-399); Red Blood Count 3.58 10^6/uL (3.85-5.65); White Blood Count 7.37 10^3/uL (3.29-11.43)
--- NOTE | 2025-06-19 05:08 | PC.NURSE ---
This ECONOMIC RESEARCH ANALYST completed a preoperative skin prep bath using 2% chlorhexidine gluconate cloth 0500 L[address]mer ECONOMIC RESEARCH ANALYST
[2025-06-19 05:19] LABS: Alanine Aminotransferase 17 U/L (0-33); Albumin Level 3.7 g/dL (3.5-5.2); Alkaline Phosphatase 147 U/L (35-105); Anion Gap 17.4 (5-19); Aspartate Amino Transferase 21 U/L (0-32); Blood Urea Nitrogen 25 mg/dL (8-23); Calcium 8.7 mg/dL (8.5-10.5); Carbon Dioxide 21 mmol/L (22-29); Chloride 104 mmol/L (98-107); Globulin 2.0 g/dL (1.3-4.6); Glucose 118 mg/dL (65-115); Magnesium 1.9 mg/dL (1.7-2.3); Osmolality Calculated 291 mOsm/kg (285-295); Potassium 4.4 mmol/L (3.5-5.1); Sodium 138 mmol/L (136-145); Total Protein 5.7 g/dL (6.6-8.7)
[2025-06-19 05:26] LABS: Procalcitonin 0.11 ng/mL (0-0.5)
--- NOTE | 2025-06-19 05:41 | PC.NURSE ---
0500 medications not given due to patient going to surgery this morning.
--- NOTE | 2025-06-19 08:30 | XR_ITS ---
WS: [id number] C-ARM RADIOGRAPHS RIGHT HIP; 3 IMAGES HISTORY: RT TFN; OR PICS COMPARISON: 06/18/2025 Intraoperative imaging during ORIF RIGHT hip fracture. Intratrochanteric hip fracture now in good position and alignment. Avulsion of the lesser trochanter. XR/XR hip RT 2-3V wo/w pel* 80500 IMPRESSION: Intraoperative imaging during ORIF RIGHT hip fracture.
--- NOTE | 2025-06-19 08:37 | PM.CONSULT ---
Providers/Reason For Consult Consulting Physician/Specialty*: Nico Graff MD/orthopedic surgery Reason for Consult*: Right hip fracture Attending Physician: Hakeem Sainz MD History of Present Illness History of Present Illness Fior Mead is a 80 year old female who is well-known to myself. She fell and broke her left hip 2 to 3 months ago which I surgically repaired also. She is now back in at this time with a similar intertrochanteric hip fracture on the right. Patient is in a memory care facility. Her family indicates that she fell in the dining area and had several witnesses. She fell hard on her right hip and was unable to bear weight and complained of pain. X-rays in the emergency room here demonstrate intertrochanteric hip fracture of the right hip. Review of Systems General: Reports: ROS unobtainable due to mental status Medications/Allergies Home Medications ?Medication ?Instructions ?Recorded ?Confirmed ?Last Taken ?Type calcium carbonate 1,000 mg (5 x 200 mg calcium (500 04/30/25 06/18/25 Unknown Rx mg)) PO BID #0 tabs calcium 600 mg (as 1 tab PO BID 05/28/25 06/18/25 06/18/25 History carbonate)-vitamin D3 10 mcg (400 unit) tablet lorazepam 0.5 mg tablet (Ativan) 0.5 mg PO DAILY PRN Agitation 05/28/25 06/18/25 Unknown History oxycodone 5 mg tablet 5 mg PO Q6H PRN Pain 05/28/25 06/18/25 06/14/25 History acetaminophen 325 mg tablet 650 mg PO QID PRN pain/increased 06/18/25 06/18/25 Unknown History temp bisacodyl 10 mg rectal suppository 10 mg KS DAILY PRN Constipation 06/18/25 06/18/25 04/30/25 History (Dulcolax (bisacodyl)) bisacodyl 5 mg tablet,delayed 10 mg PO DAILY PRN Constipation 06/18/25 06/18/25 04/30/25 History release (Dulcolax (bisacodyl)) magnesium hydroxide 400 mg/5 mL 30 ml PO DAILY PRN Constipation 06/18/25 06/18/25 04/30/25 History oral suspension (Milk of Magnesia) sodium phosphates 19 gram-7 118 ml KS DAILY PRN Constipation 06/18/25 06/18/25 Unknown History gram/118 mL enema (Fleet Enema) Allergies Allergy/AdvReac Type Severity Reaction Status Date / Time ibuprofen Allergy ADR-Vomitin Verified 06/18/25 16:04 g morphine Allergy ALGY-Difficulty Verified 06/18/25 16:04 Breathing Sulfa (Sulfonamide Allergy Unknown Verified 06/18/25 16:04 Antibiotics) tramadol Allergy Unconscious Verified 06/18/25 16:04 Current Medications Generic Name Dose Route Start Last Admin Trade Name Freq PRN Reason Stop Dose Admin Acetaminophen 650 mg 06/18/25 18:46 06/18/25 21:34 Acetaminophen 325 Mg Tablet PO 650 mg On Hold: 06/19/25 07:58 QID PRN Administration Comment: Order held by Process pain/increased temp Transfer Ceftriaxone Sodium 1,000 mg 06/18/25 19:00 06/18/25 20:28 Ceftriaxone 1,000 Mg Sdv IVP 1,000 mg On Hold: 06/19/25 07:58 Q24H NESTOR Administration Comment: Order held by Process Protocol Transfer Donepezil HCl 10 mg 06/18/25 21:00 06/18/25 21:33 Donepezil 5 Mg Tablet PO Not Given On Hold: 06/19/25 07:58 BEDTIME NESTOR Comment: Order held by Process Transfer Sodium Chloride 1,000 mls @ 50 mls/hr 06/18/25 19:00 06/18/25 20:30 Sodium Chloride 0.9% IV 50 mls/hr On Hold: 06/19/25 07:58 .Q20H NESTOR Administration Comment: Order held by Process Transfer Lorazepam 0.5 mg 06/18/25 18:46 06/18/25 21:34 Lorazepam 0.5 Mg Tablet PO 0.5 mg On Hold: 06/19/25 07:58 DAILY PRN Administration Comment: Order held by Process AGITATION Transfer Pantoprazole Sodium 40 mg 06/18/25 19:00 06/18/25 20:29 Pantoprazole 40 Mg Sdv IVP 40 mg On Hold: 06/19/25 07:58 Q24H NESTOR Administration Comment: Order held by Process Transfer PFSH Acute PFSH: Medical History (Updated 06/19/25 @ 08:41 by Nico Graff MD) Rupture of implant of left breast History of breast cancer Dementia Surgical History History of appendectomy H/O mastectomy Social History Smoking and tobacco/nicotine status: former use of tobacco/nicotine Alcohol intake: never Substance/Drug Use: never Lives independently: No Household members: family Vitals/I&O/Wt Last Vital Signs Temp 99.8 F H 06/19/25 08:02 Pulse 79 06/19/25 08:02 Resp 16 06/19/25 08:02 BP 128/68 06/19/25 08:02 Pulse Ox 95 06/19/25 08:02 O2 Del Method Room Air 06/19/25 08:02 06/18/25 06/19/25 06/19/25 22:59 06:59 14:59 Intake Total 0 / 0 Output Total 350 / 350 Balance 0 / 0 -350 / -350 Weight last 48 hrs Weight 101 lb Weight 101 lb 12.8 oz Weight 110 lb Physical Exam Narrative: On examination the patient is a dementia patient who lives in a memory care facility. Family members are present with her today stated that she fell in the dining area fairly hard on her right side. Patient's right leg is shortened and internally rotated. Pain with any manipulation of the right hip. Urinary Catheter Management: Bose: Cath Placed During This Visit: no Reason for Continuing Indwelling Catheter: Required Immobilization for Trauma or Surgery or Anesthesia Data 06/19/25 04:48 06/19/25 04:48 A&P Assessment and plan 1. Closed displaced intertrochanteric fracture of right femur, initial encounter: Patient admitted for intertrochanteric right hip fracture. After reviewing x-rays discussed with the family I have offered similar surgery to the left intertrochanteric hip fracture that being proximal trochanteric nail for fixation of the right hip fracture. All risk benefits treatment alternatives discussed and they are agreeable to this at this time. Plan: Plan at this time is for close reduction with internal fixation right hip fracture. PDMP PDMP Reviewed: Not Reviewed Consult Attestations Medical Necessity Statement: Patient needed pain control as well as surgical repair of right hip Coding Level of Care Code Acute Code for Chg Fwd Diagnoses Closed displaced intertrochanteric fracture of right femur, initial encounter S72.141A Encounter type: initial encounter Fracture alignment: displaced
--- NOTE | 2025-06-19 08:47 | ANES.PREANE2 ---
Pre-Anesthetic Assessment Height/Weight: Height 1.52 m Weight 45.813 kg Temp Pulse Resp BP Pulse Ox O2 Del Method 99.8 F H 79 16 128/68 95 Room Air 06/19/25 08:02 06/19/25 08:02 06/19/25 08:02 06/19/25 08:02 06/19/25 08:02 06/19/25 08:02 Operation Date: 06/19/25 09:30 Proposed Procedures p Trochanteric Femoral Nail(Right) - Nico Graff MD Familial anesthetic complications: none Was Beta Amado taken within 24 hours: N/A Was Clonidine taken within 24 hours: N/A Last intake: Intake Last Liquid Date 06/18/25 Last Liquid Time 21:00 Last Solid Date 06/18/25 Last Solid Time 21:00 Social No alcohol and No tobacco Exam alert, oriented x 3, clear to auscultation bilaterally and regular rate & rhythm Neuropsych Dementia Anesthetic Plan ASA status: 2 Anesthesia: General Risk of > 500 ml blood loss (7ml/kg in children): No Medications/Allergies Home Medications ?Medication ?Instructions ?Recorded ?Confirmed ?Last Taken ?Type calcium carbonate 1,000 mg (5 x 200 mg calcium (500 04/30/25 06/18/25 Unknown Rx mg)) PO BID #0 tabs calcium 600 mg (as 1 tab PO BID 05/28/25 06/18/25 06/18/25 History carbonate)-vitamin D3 10 mcg (400 unit) tablet lorazepam 0.5 mg tablet (Ativan) 0.5 mg PO DAILY PRN Agitation 05/28/25 06/18/25 Unknown History oxycodone 5 mg tablet 5 mg PO Q6H PRN Pain 05/28/25 06/18/25 06/14/25 History acetaminophen 325 mg tablet 650 mg PO QID PRN pain/increased 06/18/25 06/18/25 Unknown History temp bisacodyl 10 mg rectal suppository 10 mg SD DAILY PRN Constipation 06/18/25 06/18/25 04/30/25 History (Dulcolax (bisacodyl)) bisacodyl 5 mg tablet,delayed 10 mg PO DAILY PRN Constipation 06/18/25 06/18/25 04/30/25 History release (Dulcolax (bisacodyl)) magnesium hydroxide 400 mg/5 mL 30 ml PO DAILY PRN Constipation 06/18/25 06/18/25 04/30/25 History oral suspension (Milk of Magnesia) sodium phosphates 19 gram-7 118 ml SD DAILY PRN Constipation 06/18/25 06/18/25 Unknown History gram/118 mL enema (Fleet Enema) Allergies Allergy/AdvReac Type Severity Reaction Status Date / Time ibuprofen Allergy ADR-Vomitin Verified 06/18/25 16:04 g morphine Allergy ALGY-Difficulty Verified 06/18/25 16:04 Breathing Sulfa (Sulfonamide Allergy Unknown Verified 06/18/25 16:04 Antibiotics) tramadol Allergy Unconscious Verified 06/18/25 16:04 Current Medications Generic Name Dose Route Start Last Admin Trade Name Freq PRN Reason Stop Dose Admin Acetaminophen 650 mg 06/18/25 18:46 06/18/25 21:34 Acetaminophen 325 Mg Tablet PO 650 mg On Hold: 06/19/25 07:58 QID PRN Administration Comment: Order held by Process pain/increased temp Transfer Ceftriaxone Sodium 1,000 mg 06/18/25 19:00 06/18/25 20:28 Ceftriaxone 1,000 Mg Sdv IVP 1,000 mg On Hold: 06/19/25 07:58 Q24H NESTOR Administration Comment: Order held by Process Protocol Transfer Donepezil HCl 10 mg 06/18/25 21:00 06/18/25 21:33 Donepezil 5 Mg Tablet PO Not Given On Hold: 06/19/25 07:58 BEDTIME NESTOR Comment: Order held by Process Transfer Sodium Chloride 1,000 mls @ 50 mls/hr 06/18/25 19:00 06/18/25 20:30 Sodium Chloride 0.9% IV 50 mls/hr On Hold: 06/19/25 07:58 .Q20H NESTOR Administration Comment: Order held by Process Transfer Lorazepam 0.5 mg 06/18/25 18:46 06/18/25 21:34 Lorazepam 0.5 Mg Tablet PO 0.5 mg On Hold: 06/19/25 07:58 DAILY PRN Administration Comment: Order held by Process AGITATION Transfer Pantoprazole Sodium 40 mg 06/18/25 19:00 06/18/25 20:29 Pantoprazole 40 Mg Sdv IVP 40 mg On Hold: 06/19/25 07:58 Q24H NESTOR Administration Comment: Order held by Process Transfer [facility] Anesthesia Medical History (Updated 06/19/25 @ 08:41 by Nico Graff MD) Rupture of implant of left breast History of breast cancer Dementia Surgical History History of appendectomy H/O mastectomy Social History Smoking and tobacco/nicotine status: former use of tobacco/nicotine Alcohol intake: never Substance/Drug Use: never Lives independently: No Household members: family Data Anesthesia 06/19/25 04:48 06/19/25 04:48 Short CBC 06/18/25 06/19/25 Range/Units 17:42 04:48 WBC 13.17 H 7.37 (3.29-11.43) 10^3/uL Hgb 12.50 10.50 L (11.27-16.99) g/dL Hct 40.8 34.2 L (36-47) % MCV 95.8 95.5 (85-98) fl Plt Count 145 L 185 (157-399) 10^3/cmm Neut % (Auto) 88.5 81.6 % Neut # (Auto) 11.67 H 6.01 (1.8-7.7) 10^3/uL BMP 06/18/25 06/19/25 17:42 04:48 Sodium 137 138 Potassium 4.3 4.4 Chloride 102 104 Carbon Dioxide 23 21 L BUN 24 H 25 H Creatinine 0.6 0.7 Glucose 98 118 H Calcium 9.4 8.7 Liver Function 06/18/25 06/19/25 Range/Units 17:42 04:48 Total Bilirubin 0.3 0.4 (0.15-1.2) mg/dL AST 27 21 (0-32) U/L ALT 22 17 (0-33) U/L Alkaline Phosphatase 175 H 147 H (35-105) U/L Albumin 3.8 3.7 (3.5-5.2) g/dL Urine 06/18/25 Range/Units 21:19 Urine Color Yellow (Yellow) Urine Appearance Clear (CLEAR) Urine pH 5.5 (5-7) Ur Specific Burr 1.025 (1.005-1.030) Urine Protein Trace A (Negative) Urine Glucose (UA) Negative (Normal) Urine Ketones Negative (Negative) Urine Nitrate Negative (Negative) Urine Bilirubin Negative (Negative) Ur Leukocyte Esterase Negative (Negative) Urine RBC 6-10 (0-2) /hpf Urine WBC 6-10 (0-5) /hpf Coa 06/18/25 17:42 PT 12.50 INR 0.87 APTT 27.7
[2025-06-19] MEDS: ceFAZolin 2,000 mg SDV 2000 MG IVP ×2 (09:00→17:33)
--- NOTE | 2025-06-19 09:03 | PC.NURSE ---
Patient to surgery via bed at approximately 0745. Daughter at bedside to follow patient downstairs.
--- NOTE | 2025-06-19 10:36 | PM.OP ---
Operative Report Date of procedure: June 19, 2025 Surgeon: Nico Graff MD Procedure: Preoperative diagnosis: Right intertrochanteric hip fracture Postoperative diagnosis: Same Procedure: Closed reduction with internal fixation of right hip fracture, trochanteric nail Surgeon: Nico Graff MD Anesthesia: General EBL: 100 cc Indications: Fior is a 80-year-old white female resides in a retirement in the area. She fell in the dining garg yesterday afternoon landing on her right side. She had pains and inability to bear weight. She is brought to [facility] where x-rays demonstrated a comminuted shortened intertrochanteric hip fracture on the right. Orthopedic consultation was obtained. Patient is well-known to myself as I fixed a intertrochanteric hip fracture of the left more than 2 months ago. After review of the x-rays and discussion with her family members is felt the patient would most benefit from fixation of her right hip fracture. Family is very aware of the surgery as we have done it before and I spoken with them in the past. All risk benefits treatment alternatives were discussed with them and consent was obtained. Procedure: After obtaining written consent patient was taken the operating room still in her hospital bed and had general anesthetic administered. Once good anesthesia was achieved patient placed up on the fracture table and positioned and secured to it. Right leg was placed in a traction boot left legs placed in the leg cruz and extended below the pelvis. With gentle traction manipulation fracture was reduced and confirmed under fluoroscopic evaluation of both AP and lateral views. Right hip and leg were prepped and draped in the usual fashion. After surgical timeout fluoroscopy was used to find the superior tip of the greater trochanter. Incision was made just proximal to this with a #[address] down to the bone. Starting awl was then placed on the tip of the greater trochanter and confirmed under fluoroscopic evaluation. This was driven down into the greater trochanter and then a guide kayden placed through it down into the intramedullary canal. Again confirmed under fluoroscopic evaluation. Proximal femur was reamed. A size 10 proximal trochanteric nail was then placed down the guidewire with the drill guide attached to it. This is driven down to appropriate depth. Subsequently guidewire was removed. Leg screw drill guide was then placed through a stab wound and the drill guide into the lateral thigh. This was positioned under fluoroscopic evaluation. Guidepin was placed so was inferior on the femoral neck on the AP view and central on the lateral view. Guidepin is measured at the 95 mm and therefore this is overreamed with a reamer to the depth of 95. Lag screw was then driven on at this guide pin until to appropriate depth. Locking screws placed in through the top of the trochanteric nail to lock the lag screw in place. At this point a distal locking screw drill guide was placed through the drill guide and through a stab wound on the lateral thigh. Drill sleeve was placed and confirmed under fluoroscopic evaluation be aligned with the distal locking screw. This is drilled bicortically. This measured out to be a 35 mm screw. This was then driven across the distal portion of the trochanteric kayden through the femur. With good fixation. Interoperative fluoroscopy demonstrated good fixation. Drill guide was removed from the trochanteric nail. Interoperative fluoroscopy on both AP and lateral views demonstrate adequate reduction and fixation of this fracture. Wounds were then washed with sterile irrigation. Deep fascia was repaired in the proximal incision with 0 Vicryl [id number] sutures. Subcutaneous tissue was then reapproximated in all the wounds with 0 Vicryl interrupted sutures. Skin was then closed with skin keysha. Wounds were cleaned and dried dressed with Xeroform gauze and sterile OpSite gauze dressing. Patient was then awakened and transported to the recovery room in stable condition
--- NOTE | 2025-06-19 10:43 | PC.CHAP ---
Pastoral Care Encounter/Spiritual Assessment Type of Contact [] Declined greeting card editor visit [] Patient/Family/Request visit [] Outpatient visit [] Follow-up visit [] Physician referral [] Code/Alert [x] Routine visit [] Staff referral [] Actively dying [] Patient sleeping [] Family support [] [x] Out of room [] Palliative care [] [] Receiving care in room [] Pre-surgical visit [] Trauma [] Long length of stay [] ICU visit [] Other: Relational/Emotional Strength [] Patient feels connected with others/family/visitors/staff [] Distress [] Loneliness/isolation [] Abandonment Spirituality of Patient [] Person of Hortencia [] Attends Druze of their Hortencia [] Believes in Prayer [] Reads Bible or Church materials [] There are Spiritual issues to be addressed Line Controller Interventions [] Prayer [] Active listening [] Non-anxious presence [] Spiritual/emotional support [] Crisis/trauma care [] Spiritual counseling [] Bereavement support [] Provided bereavement packet [] Provided Bible/devotional materials [] Provided toy/stuffed animal, coloring book to patient or family member [] Provided Communion [] Anointing/Freedom [] Salvation [] Completed spiritual assessment [] Other: Impact on Illness or Injury [] Angry [] Fearful [] Anxious [] Often cries [] Exhaustion [] Unable to work [] Unable to attend spiritism [] Unable to walk/stand [] Unable to read [] Unable to drive [] Unable to eat/drink [] Unable to sleep [] Unable to be with family [] Patient intubated [] Other: Summary Time spent with patient
--- NOTE | 2025-06-19 11:20 | SUR.PHASEI ---
When pt was taken back to her room on [facility] the dressing was observed by myself and nurse Vilma. One of the dressings was saturated with blood. I spoke with Dr. Graff, he stated he was not concerned, that he had put in a note for the floor to reenforce the dressings as needed. I went back to [facility] and informed Vilma of this. I offered to help her with the dressing, she stated she would get an abd and foam tape and take care of it.
--- NOTE | 2025-06-19 11:51 | P.PN_ITS ---
Subjective 2 Subjective: Did have episode of agitation overnight for which she required oral Ativan after which she rested well. Undergoing ORIF today. Will recheck on her postoperatively. Vitals/I&O/Wt Last Vital Signs Temp 98.5 F 06/19/25 11:40 Pulse 93 06/19/25 11:40 Resp 20 H 06/19/25 11:40 BP 115/80 06/19/25 11:40 Pulse Ox 96 06/19/25 11:40 O2 Del Method Nasal Cannula 06/19/25 11:40 O2 Flow Rate 3 06/19/25 11:40 06/18/25 06/19/25 06/19/25 22:59 06:59 14:59 Intake Total 0 / 0 0 / 0 Output Total 350 / 350 100 / 100 Balance 0 / 0 -350 / -350 -100 / -100 Weight last 48 hrs Weight 45.813 kg Weight 46.176 kg Weight 49.895 kg Physical Exam 2 Narrative: General: No acute distress, AO x 1 HEENT: PERRLA, pupils bilaterally equal and reactive Chest: Normal vesicular breath sounds, no added sounds, equal good air entry bilaterally CVS: S1-S2 regular, no murmurs, no tachycardia, no gallops, no rubs Abdomen: Soft, nontender, no organomegaly, bowel sounds present Neuro: No focal deficits, no facial deformity, Urinary Catheter Management: Bose: Cath Placed During This Visit: no Reason for Continuing Indwelling Catheter: Required Immobilization for Trauma or Surgery or Anesthesia Data 06/19/25 04:48 06/19/25 04:48 A&P Assessment and plan 1. Closed displaced intertrochanteric fracture of right femur, initial encounter: Plan for ORIF today on 06/19. Will monitor hemoglobin post OR. Physical therapy postoperatively. Continue with oxycodone every 6 hours as needed for pain management. 2. Dementia: Continue with home dose of Ativan 0.5 mg daily as needed for agitation. Add Celexa and donepezil. Haldol 1 mg IM every 4 hours as needed for agitation. Plan: Appreciate UA. Low concerns for UTI. I for now we will continue with empiric ceftriaxone. Will plan to discontinue 24 hours postoperatively. Appreciate TSH. Check free T3. CODE STATUS: Limited resuscitation with okay admission to ICU if needed as per previous admission 1 month ago. N.p.o. for now. Diet to be advanced as per orthopedic team postoperatively. Protonix for PUD prophylaxis SCD for DVT prophylaxis. PDMP PDMP Reviewed: Not Reviewed Attestations 2 Medical Necessity Statement*: Requires further hospitalization for management of right intertrochanteric fracture requiring ORIF in a patient with advanced dementia Diagnoses Closed displaced intertrochanteric fracture of right femur, initial encounter S72.141A Encounter type: initial encounter Fracture alignment: displaced Dementia F03.90
--- NOTE | 2025-06-19 11:53 | PC.NURSE ---
Addendum entered by Vilma Baez LPN 06/19/25 14:51: Correction patient returned from surgery at 1115. Original Note: Patient returned to floor from PACU at 1015. 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 Dressing was saturated with sanguineous blood. FREDERICK Salguero ran downstairs to talk with Dr. Graff. She came back and stated, Dr. Graff stated that he's not surprised that she's bleeding. She was clotting pretty bad during surgery and possibly has some bleeding from her old fracture. He said he already has orders in the chart to reinforce dressing as needed. This nurse reinforced dressing with two ADB pads and foam pressure tape.
[2025-06-19 12:38] LABS: Free T4 Free Thyroxine 1.28 ng/dL (0.82-1.77)
[2025-06-19] MEDS: sennosides-docusate Tablet 2 TAB PO (17:32)
[2025-06-19] MEDS: calcium carb-vit d 600mg/400unit 1 Tablet 1 EACH PO (17:33)
[2025-06-19] MEDS: cefTRIAXone 1,000 mg SDV 1000 MG IVP (17:34)
[2025-06-19] MEDS: chlorhexidine gluconate 0.12% Btl 473 mL 30 ML MUCOUS MEM (17:34)
[2025-06-19] MEDS: mupirocin oint 22 gm 1 APPLIC NASAL (17:34)
[2025-06-19] MEDS: pantoprazole 40 mg SDV IVP (17:34)
[2025-06-19 17:58] LABS: Hematocrit 30.4 % (36-47); Hemoglobin 9.30 g/dL (11.27-16.99)
[2025-06-20] VITALS (17 sets, daily range): BP systolic 93–137; BP diastolic 54–77; PULSE 79–105; RESP 16–20; TEMP 36.3–37.2; O2SAT 90–100
[2025-06-20] MEDS: ceFAZolin 2,000 mg SDV 2000 MG IVP ×2 (02:07→08:00)
[2025-06-20] MEDS: mupirocin oint 22 gm 1 APPLIC NASAL ×2 (05:17→18:34)
[2025-06-20 05:21] LABS: Hematocrit 26.0 % (36-47); Hemoglobin 8.00 g/dL (11.27-16.99); Mean Corpuscular HGB Conc 30.8 g/dL (30-55); Mean Corpuscular Hemoglobin 29.5 pg (27-33); Mean Corpuscular Volume 95.9 fl (85-98); Nucleated Red Blood Cells % 0 %; Platelet Count 147 10^3/cmm (157-399); Red Blood Count 2.71 10^6/uL (3.85-5.65); White Blood Count 7.23 10^3/uL (3.29-11.43)
[2025-06-20 05:48] LABS: Alanine Aminotransferase 12 U/L (0-33); Albumin Level 3.3 g/dL (3.5-5.2); Alkaline Phosphatase 119 U/L (35-105); Anion Gap 15.2 (5-19); Aspartate Amino Transferase 18 U/L (0-32); Blood Urea Nitrogen 23 mg/dL (8-23); Calcium 8.2 mg/dL (8.5-10.5); Carbon Dioxide 21 mmol/L (22-29); Chloride 109 mmol/L (98-107); Globulin 1.9 g/dL (1.3-4.6); Glucose 131 mg/dL (65-115); Magnesium 2.0 mg/dL (1.7-2.3); Osmolality Calculated 297 mOsm/kg (285-295); Potassium 4.2 mmol/L (3.5-5.1); Sodium 141 mmol/L (136-145); Total Protein 5.2 g/dL (6.6-8.7)
[2025-06-20] MEDS: multivitamin therapeutic Tablet 1 TAB PO (07:58)
[2025-06-20] MEDS: sennosides-docusate Tablet 2 TAB PO ×2 (07:58→18:10)
[2025-06-20] MEDS: calcium carb-vit d 600mg/400unit 1 Tablet 1 EACH PO ×2 (07:58→18:10)
--- NOTE | 2025-06-20 10:49 | P.PN_ITS ---
Subjective 2 Subjective: Patient now status post close reduction internal fixation of right hip fracture. Nursing staff indicates the need to put a pressure dressing on the lowest incisional line but all is going well since last night. Family has no complaints. Patient is awake and alert to self. No other nursing staff concerns at this time. Patient's hemoglobin dropped slightly since surgery which is to be expected. No other concerns Vitals/I&O/Wt Last Vital Signs Temp 98.6 F 06/20/25 07:40 Pulse 96 06/20/25 07:40 Resp 20 H 06/20/25 07:40 BP 137/67 06/20/25 07:40 Pulse Ox 95 06/20/25 07:40 O2 Del Method Nasal Cannula 06/20/25 07:40 O2 Flow Rate 2 06/19/25 18:14 06/19/25 06/20/25 06/20/25 22:59 06:59 14:59 Intake Total 437.5 / 1000.0 120 / 120 Output Total 500 / 600 250 / 850 100 / 100 Balance -62.5 / 400.0 -250 / 150.0 20 / 20 Weight last 48 hrs Weight 101 lb 11.2 oz Weight 101 lb Weight 101 lb 12.8 oz Weight 110 lb Physical Exam 2 Narrative: Patient is resting in bed talking with family member. Nursing staff is by the bedside. Patient is moving right leg without much signs of any pain or problems. Dressings appear to be clear Urinary Catheter Management: Bose: Cath Placed During This Visit: yes, but has since been removed by the nurse Reason for Continuing Indwelling Catheter: Decision to DC Catheter Urinary Catheter Date of Insertion: 06/18/25 Date Urinary Catheter Removed: 06/20/25 Time Urinary Catheter Discontinued: 08:30 Data 06/20/25 04:43 06/20/25 04:43 A&P Assessment and plan 1. Closed fracture of right hip with routine healing, subsequent encounter: Patient is postop day 1 from closed reduction with internal fixation of her right intertrochanteric hip fracture. All appears to be healing well. Nursing staff has no concerns. Dressings are dry today. H&H is down slightly postoperatively as to be expected. Continue on physical therapy for progressive ambulation. Plan: Plan at this time is for physical therapy start working with her for progressive ambulation weightbearing as tolerated. Dressing changes as needed. Pain control. PDMP PDMP Reviewed: Not Reviewed Attestations 2 Medical Necessity Statement*: Patient in need for further medical follow-up and care as well as pain control and physical therapy Coding Level of Care Code Acute Code for Chg Fwd Diagnoses Closed fracture of right hip with routine healing, subsequent encounter S72.001D Encounter type: subsequent encounter Fracture healing: with routine healing
[2025-06-20] MEDS: chlorhexidine gluconate 0.12% Btl 473 mL 30 ML MUCOUS MEM ×3 (11:08→20:43)
--- NOTE | 2025-06-20 12:16 | P.PN_ITS ---
Subjective 2 Subjective: No acute vents overnight. Underwent ORIF yesterday. Seen with family at bedside. Patient at baseline mentation. Having lunch. Vitals/I&O/Wt Last Vital Signs Temp 97.4 F L 06/20/25 11:02 Pulse 96 06/20/25 11:32 Resp 19 H 06/20/25 11:02 BP 114/75 06/20/25 11:02 Pulse Ox 95 06/20/25 11:32 O2 Del Method Room Air 06/20/25 11:32 O2 Flow Rate 2 06/19/25 18:14 06/19/25 06/20/25 06/20/25 22:59 06:59 14:59 Intake Total 437.5 / 1000.0 795 / 795 Output Total 500 / 600 250 / 850 100 / 100 Balance -62.5 / 400.0 -250 / 150.0 695 / 695 Weight last 48 hrs Weight 46.13 kg Weight 45.813 kg Weight 46.176 kg Weight 49.895 kg Physical Exam 2 Narrative: General: No acute distress, AO x 1 HEENT: PERRLA, pupils bilaterally equal and reactive Chest: Normal vesicular breath sounds, no added sounds, equal good air entry bilaterally CVS: S1-S2 regular, no murmurs, no tachycardia, no gallops, no rubs Abdomen: Soft, nontender, no organomegaly, bowel sounds present Neuro: No focal deficits, no facial deformity, Urinary Catheter Management: Bose: Cath Placed During This Visit: yes, but has since been removed by the nurse Reason for Continuing Indwelling Catheter: Decision to DC Catheter Urinary Catheter Date of Insertion: 06/18/25 Date Urinary Catheter Removed: 06/20/25 Time Urinary Catheter Discontinued: 08:30 Data 06/20/25 04:43 06/20/25 04:43 A&P Assessment and plan 1. Closed displaced intertrochanteric fracture of right femur, initial encounter: Plan for ORIF today on 06/19. Will monitor hemoglobin post OR. Physical therapy postoperatively. Continue with oxycodone every 6 hours as needed for pain management. 2. Dementia: Continue with home dose of Ativan 0.5 mg daily as needed for agitation. Add Celexa and donepezil. Haldol 1 mg IM every 4 hours as needed for agitation. 3. Postoperative anemia: Plan: Appreciate UA. Low concerns for UTI. I for now we will continue with empiric ceftriaxone. Will plan to discontinue 24 hours postoperatively. Appreciate TSH. Check free T3. CODE STATUS: Limited resuscitation with okay admission to ICU if needed as per previous admission 1 month ago. N.p.o. for now. Diet to be advanced as per orthopedic team postoperatively. Protonix for PUD prophylaxis SCD for DVT prophylaxis. Plan for the day: Hemoglobin down to 8 today. 12.5 on admission. Could be dilutional. For now we will continue to monitor. Repeat hemoglobin and hematocrit in afternoon. Target hemoglobin level over 7. Will transfuse accordingly. Continue with oral iron supplementation. Appreciate iron panel, vitamin B12 and folate levels. Physical therapy. Continue chronic medication. Leukocytosis resolved. UTI less likely. Finished 3-day course of ceftriaxone. Continue with donepezil and Celexa. Hold Lovenox for now. PDMP PDMP Reviewed: Not Reviewed Attestations 2 Medical Necessity Statement*: Requires further hospitalization for hip fracture post-ORIF, postoperative anemia Diagnoses Closed displaced intertrochanteric fracture of right femur, initial encounter S72.141A Encounter type: initial encounter Fracture alignment: displaced Dementia F03.90 Postoperative anemia D64.9
[2025-06-20] MEDS: oxyCODONE 5 mg IR Tab/Cap PO ×2 (14:13→20:43)
[2025-06-20 15:15] LABS: Hematocrit 24.5 % (36-47); Hemoglobin 7.60 g/dL (11.27-16.99)
[2025-06-20] MEDS: pantoprazole 40 mg SDV IVP (18:10)
[2025-06-20] MEDS: cefTRIAXone 1,000 mg SDV 1000 MG IVP (18:34)
[2025-06-21 04:00] VITALS: BP 130/69; PULSE 85; RESP 16; TEMP 37.3; O2SAT 93
[2025-06-21] MEDS: sennosides-docusate Tablet 2 TAB PO (04:06)
[2025-06-21] MEDS: multivitamin therapeutic Tablet 1 TAB PO (04:06)
[2025-06-21] MEDS: calcium carb-vit d 600mg/400unit 1 Tablet 1 EACH PO (04:06)
[2025-06-21] MEDS: chlorhexidine gluconate 0.12% Btl 473 mL 30 ML MUCOUS MEM (04:07)
[2025-06-21] MEDS: mupirocin oint 22 gm 1 APPLIC NASAL (04:08)
[2025-06-21 05:18] LABS: Hematocrit 27.4 % (36-47); Hemoglobin 8.80 g/dL (11.27-16.99); Mean Corpuscular HGB Conc 32.1 g/dL (30-55); Mean Corpuscular Hemoglobin 28.9 pg (27-33); Mean Corpuscular Volume 90.1 fl (85-98); Nucleated Red Blood Cells % 0 %; Platelet Count 138 10^3/cmm (157-399); Red Blood Count 3.04 10^6/uL (3.85-5.65); White Blood Count 7.35 10^3/uL (3.29-11.43)
[2025-06-21 06:09] LABS: Alanine Aminotransferase 12 U/L (0-33); Albumin Level 3.2 g/dL (3.5-5.2); Alkaline Phosphatase 120 U/L (35-105); Blood Urea Nitrogen 19 mg/dL (8-23); Calcium 8.4 mg/dL (8.5-10.5); Carbon Dioxide 24 mmol/L (22-29); Chloride 105 mmol/L (98-107); Globulin 2.7 g/dL (1.3-4.6); Glucose 136 mg/dL (65-115); Magnesium 2.0 mg/dL (1.7-2.3); Osmolality Calculated 296 mOsm/kg (285-295); Sodium 141 mmol/L (136-145); Total Protein 5.9 g/dL (6.6-8.7)
[2025-06-21 06:10] VITALS: RESP 16
[2025-06-21] MEDS: oxyCODONE 5 mg IR Tab/Cap PO (06:10)
[2025-06-21 06:11] LABS: Anion Gap 16.1 (5-19); Aspartate Amino Transferase 29 U/L (0-32); Potassium 4.1 mmol/L (3.5-5.1)
[2025-06-21 07:34] VITALS: BP 143/77; PULSE 96; RESP 17; TEMP 37.1; O2SAT 92
--- NOTE | 2025-06-21 07:42 | PM.DCS ---
Discharge Providers Date of Admission: 06/18/25 18:16 Date of Discharge: June 21, 2025 Attending Provider at Admission: Hakeem Sainz MD Attending Provider at Discharge: Hakeem Sainz MD Consults: Consult Dr. Graff Diagnoses at Discharge Discharge Diagnosis 1. Closed displaced intertrochanteric fracture of right femur, initial encounter: 2. Dementia: 3. Postoperative anemia: Reason for Visit Reason for Visit: fall - obvious shortening, right hip Hospital Course Hospital Course Fior Mead is a 80 year old female with past medical history of advanced dementia with baseline mentation of AO x 1 from memory unit at [facility] with recent history of left hip fracture post-ORIF in April 2025 presents to the ER today after sustaining a fall at [facility] dining garg after which she started complaining of pain in her right hip and was found to have a right hip intertrochanteric fracture. Orthopedic has been consulted from the ER. Patient underwent ORIF with orthopedics on 06/19. Postoperatively she did have postoperative anemia for which she required 1 to blood transfusion. She remained at her baseline mentation. She has been discharged back to SNF for further rehabilitation. Celexa and donepezil has been added to her medication list for advanced dementia along with oral iron supplementation. Given significant postoperative anemia requiring blood transfusion she is not being discharged on prophylactic anticoagulation. Physical Exam Narrative: General: No acute distress, AO x 1 HEENT: PERRLA, pupils bilaterally equal and reactive Chest: Normal vesicular breath sounds, no added sounds, equal good air entry bilaterally CVS: S1-S2 regular, no murmurs, no tachycardia, no gallops, no rubs Abdomen: Soft, nontender, no organomegaly, bowel sounds present Neuro: No focal deficits, no facial deformity, Urinary Catheter Management: Bose: Cath Placed During This Visit: yes, but has since been removed by the nurse Reason for Continuing Indwelling Catheter: Decision to DC Catheter Urinary Catheter Date of Insertion: 06/18/25 Date Urinary Catheter Removed: 06/20/25 Time Urinary Catheter Discontinued: 08:30 Discharge Data Studies Completed and Pending Completed Studies During Hospitalization Category Date Time Status XR hip RT 2-3V wo/w pel* [id number] Stat Exams 06/18/25 15:52 Completed XR knee RT 3V* [id number] Stat Exams 06/18/25 16:37 Completed Pending at discharge Category Date Time Status C-arm Fluoroscopy [id number] Routine Exams 06/19/25 08:36 Taken XR hip RT 2-3V wo/w pel* [id number] Routine Exams 06/19/25 08:30 Taken Complete Blood Count w/Auto AM LABS Lab 06/22/25 04:00 Ordered Radiology Impressions Knee X-Ray 06/18/25 16:37 IMPRESSION: No acute fracture. No large joint effusion. Laboratory Results WBC 7.35 10^3/uL (3.29-11.43) 06/21/25 04:59 RBC 3.04 10^6/uL (3.85-5.65) L 06/21/25 04:59 Hgb 8.80 g/dL (11.27-16.99) L 06/21/25 04:59 Hct 27.4 % (36-47) L 06/21/25 04:59 MCV 90.1 fl (85-98) 06/21/25 04:59 MCH 28.9 pg (27-33) 06/21/25 04:59 MCHC 32.1 g/dL (30-55) 06/21/25 04:59 RDW 19.3 % (12.1-15.1) H 06/21/25 04:59 Plt Count 138 10^3/cmm (157-399) L 06/21/25 04:59 MPV 11.5 fL (7.4-10.4) H 06/21/25 04:59 Neut % (Auto) 84.0 % 06/21/25 04:59 Lymph % (Auto) 8.4 % 06/21/25 04:59 [place] % (Auto) 6.4 % 06/21/25 04:59 Eos % (Auto) 0.4 % 06/21/25 04:59 Baso % (Auto) 0.3 % 06/21/25 04:59 Neut # (Auto) 6.17 10^3/uL (1.8-7.7) 06/21/25 04:59 Lymph # (Auto) 0.6 10^3/uL (0.8-4.8) L 06/21/25 04:59 [place] # (Auto) 0.5 10^3/uL (0.2-0.9) 06/21/25 04:59 Eos # (Auto) 0.0 10^3/uL (0.0-0.8) 06/21/25 04:59 Baso # (Auto) 0.0 10^3/uL (0.0-0.1) 06/21/25 04:59 Nucleated RBC % (auto) 0 % 06/21/25 04:59 Nucleated RBCs # 0.0 /100WBC 06/21/25 04:59 PT 12.50 SECONDS (12.1-14.9) 06/18/25 17:42 INR 0.87 (0.8-1.2) 06/18/25 17:42 APTT 27.7 SECONDS (23.9-36.7) 06/18/25 17:42 Sodium 141 mmol/L (136-145) 06/21/25 04:59 Potassium 4.1 mmol/L (3.5-5.1) 06/21/25 04:59 Chloride 105 mmol/L (98-107) 06/21/25 04:59 Carbon Dioxide 24 mmol/L (22-29) 06/21/25 04:59 Anion Gap 16.1 (5-19) 06/21/25 04:59 BUN 19 mg/dL (8-23) 06/21/25 04:59 Creatinine 0.6 mg/dL (0.5-0.9) 06/21/25 04:59 GFR Calculation Not Reportable 06/21/25 04:59 Glucose 136 mg/dL (65-115) H 06/21/25 04:59 Estimat Average Glucose 100 06/18/25 17:42 Hemoglobin A1c 5.1 % (4.0-6.0) 06/18/25 17:42 Calculated Osmolality 296 mOsm/kg (285-295) H 06/21/25 04:59 Calcium 8.4 mg/dL (8.5-10.5) L 06/21/25 04:59 Phosphorus 1.6 mg/dL (2.5-4.5) L 06/21/25 04:59 Magnesium 2.0 mg/dL (1.7-2.3) 06/21/25 04:59 Iron 54 ug/dL (37-145) 06/18/25 17:42 TIBC 332 mcg/dl 06/18/25 17:42 % Saturation 16.2 % (20-50) L 06/18/25 17:42 Unsat Iron Binding 278 ug/dL (112-347) 06/18/25 17:42 Total Bilirubin 0.4 mg/dL (0.15-1.2) 06/21/25 04:59 AST 29 U/L (0-32) 06/21/25 04:59 ALT 12 U/L (0-33) 06/21/25 04:59 Alkaline Phosphatase 120 U/L (35-105) H 06/21/25 04:59 Total Protein 5.9 g/dL (6.6-8.7) L 06/21/25 04:59 Albumin 3.2 g/dL (3.5-5.2) L 06/21/25 04:59 Globulin 2.7 g/dL (1.3-4.6) 06/21/25 04:59 Vitamin B12 807 pg/mL (232-1245) 06/18/25 17:42 Folate > 20.0 ng/mL (4.8-37.3) 06/19/25 04:48 Procalcitonin 0.11 ng/mL (0-0.5) 06/19/25 04:48 TSH 4.27 uIU/mL (0.27-4.20) H 06/18/25 17:42 Free T4 1.28 ng/dL (0.82-1.77) 06/19/25 04:48 Urine Color Yellow (Yellow) 06/18/25 21:19 Urine Appearance Clear (CLEAR) 06/18/25 21:19 Urine pH 5.5 (5-7) 06/18/25 21:19 Ur Specific [place] 1.025 (1.005-1.030) 06/18/25 21:19 Urine Protein Trace (Negative) A 06/18/25 21:19 Urine Glucose (UA) Negative (Normal) 06/18/25 21: Urine Ketones Negative (Negative) 06/18/25 21: Urine Blood 1+ (Negative) A 06/18/25 21:19 Urine Nitrate Negative (Negative) 06/18/25 21:19 Urine Bilirubin Negative (Negative) 06/18/25 21: Urine Urobilinogen 0.2 mg/dL (Negative) 06/18/25 21:19 Ur Leukocyte Esterase Negative (Negative) 06/18/25 21:19 Urine RBC 6-10 /hpf (0-2) 06/18/25 21:19 Urine WBC 6-10 /hpf (0-5) 06/18/25 21:19 Ur Squamous Epith Cells 0-5 /hpf (0-5) 06/18/25 21:19 Amorphous Sediment Not Reportable 06/18/25 21:19 Urine Bacteria None seen /hpf (NONE) 06/18/25 21:19 Hyaline Casts 2.46 /lpf 06/18/25 21:19 Blood Type O Positive 06/20/25 16:00 Rho(D) Type Rh positive 06/20/25 16:00 Antibody Screen Negative 06/20/25 16:00 Crossmatch See Detail 06/20/25 16:00 Vitals Last Vital Signs Temp 98.8 F 06/21/25 07:34 Pulse 96 06/21/25 07:34 Resp 17 06/21/25 07:34 BP 143/77 06/21/25 07:34 Pulse Ox 92 06/21/25 07:34 O2 Del Method Room Air 06/20/25 16:20 O2 Flow Rate 2 06/19/25 18:14 Discharge Plan Discharge Patient Disposition: Home Condition: Stable Prescriptions: New citalopram 20 mg Tablet 20 mg PO DAILY Qty: 30 0RF polysaccharide iron complex [Ferrex 150] 150 mg iron Capsule 150 mg PO BIDWM Qty: 60 0RF donepezil 5 mg Tablet 10 mg PO BEDTIME Qty: 60 0RF Continued lorazepam [Ativan] 0.5 mg tablet 0.5 mg PO DAILY PRN (Reason: Agitation) oxycodone 5 mg tablet 5 mg PO Q6H PRN (Reason: Pain) calcium carbonate-vitamin D3 600 mg-10 mcg (400 unit) tablet 1 tab PO BID calcium carbonate 200 mg calcium (500 mg) Tablet,Chewable 1,000 mg PO BID Qty: 0 0RF acetaminophen 325 mg Tablet 650 mg PO QID PRN (Reason: pain/increased temp) magnesium hydroxide [Milk of Magnesia] 400 mg/5 mL Suspension 30 ml PO DAILY PRN (Reason: Constipation) bisacodyl [Dulcolax (bisacodyl)] 10 mg Suppository 10 mg MO DAILY PRN (Reason: Constipation) Fleet Enema 19-7 gram/118 mL Enema 118 ml MO DAILY PRN (Reason: Constipation) bisacodyl [Dulcolax (bisacodyl)] 5 mg Tablet,Delayed Release (Dr/Ec) 10 mg PO DAILY PRN (Reason: Constipation) Referrals: Nico Graff MD [Physician, Orthopedics] Discharge Diet: Regular Discharge Activity: Resume usual activity and Increase activity as tolerated Patient Instructions: Acute Wound Care (DC), Opioid Safety, Post Anesthesia Care, Patient Portal & Sudeep Instructions Discharge Attestations Time Spent in Discharge Care*: greater than 30 min Specific Discharge Activities: educating patient, educating and/or supporting family/caregiver, discussing with pcp/other providers, discussing with director case management/social workers/dc planners, documenting/other paperwork and evaluating patient/reviewing data Status at Discharge: Cognitive status at discharge: severely impaired cognition, Behavioral status at discharge: cooperative, Functional status at discharge: other assisted ambulation, Overall status at discharge: patient is back to baseline Quality Metrics Clinical Quality Measures [ No reported AMI, CVA or VTE this stay] Coding Level of Care Code 76938 Total time (in minutes) for Discharge: 65 Diagnoses Closed displaced intertrochanteric fracture of right femur, initial encounter S72.141A Encounter type: initial encounter Fracture alignment: displaced Dementia F03.90 Postoperative anemia D64.9
--- NOTE | 2025-06-21 10:55 | PC.SOCIAL ---
IMM updated Updated pt's family on IMM. No questions voiced. Provided pt a copy. Initialed, dated, & timed a copy & placed in chart.
[2025-06-21 11:38] VITALS: BP 119/67; PULSE 86; RESP 16; TEMP 37.2; O2SAT 94
--- NOTE | 2025-06-21 13:01 | PC.NURSE ---
Pt is being discharged to [facility]. IV removed. Report called to [facility].
[2025-06-21 18:31] VITALS: BP 119/67; PULSE 86; RESP 16; TEMP 37.2; O2SAT 94
== END 2025-06-21 19:00 | disposition skilled nursing facility (03) | DRG 482 ==
LOC: ER 18:05 → MEDSURG 18:22
PROVIDERS: Orthopaedic Surgery; Admitting Provider Student in an Organized Health Care Education/Training Program; Emergency Provider Physician Assistant; Visit Provider Student in an Organized Health Care Education/Training Program
PROC: (CPT 27245; principal; 2025-06-19 09:00)
DX: S72.101A Unspecified trochanteric fracture of right femur, initial encounter for closed fracture (principal); F03.90 Unspecified dementia, unspecified severity, without behavioral disturbance, psychotic disturbance, mood disturbance, and anxiety; D64.9 Anemia, unspecified; Z88.5 Allergy status to narcotic agent; Z88.2 Allergy status to sulfonamides; Z88.8 Allergy status to other drugs, medicaments and biological substances; Z87.891 Personal history of nicotine dependence; W19.XXXA Unspecified fall, initial encounter; Y92.128 Other place in nursing home as the place of occurrence of the external cause
CPT/HCPCS: 36415; 36430; 51702; 73502; 73562; 76000; 80053; 81001; 82607; 82746; 83036; 83540; 83550; 83735; 84100; 84145; 84439; 84443; 85014; 85018; 85025; 85610; 85730; 86850; 86900; 86920; 93005; 94664; 96372; 97162; 97167; 99285; C1713; J0690; J0696; J1171; J1650; J2470; J2704; J3010; J7030; J9999; P9040

== ENCOUNTER → 2025-07-05 11:41 | Outpatient (BNVA) | payer MEDICARE, OTHER, SELFPAY | PROVIDERS: Visit Provider Orthopaedic Surgery | DX: S72.001D Fracture of unspecified part of neck of right femur, subsequent encounter for closed fracture with routine healing (principal); S72.112D Displaced fracture of greater trochanter of left femur, subsequent encounter for closed fracture with routine healing; X58.XXXD Exposure to other specified factors, subsequent encounter | CPT/HCPCS: 73523; 99024 ==